=== PATIENT | male | born 1940 | race Caucasian/White ===

== ENCOUNTER 2017-05-26 07:25 | Day surgery (SDC) | payer MEDICARE, OTHER ==
[2017-05-25 13:55] VITALS: BMI 27.8
[2017-05-26 08:22] LABS: #Eosinphils 0.3 thou/uL (0.0-0.7); #Lymphocytes 0.5 thou/uL (1.20-3.40); #Monocytes 0.6 thou/uL (0.11-0.59); #Neutrophils 5.1 thou/uL (1.40-6.50); %Basophils 0.7 % (0.0-1.0); %Eosinophils 4.2 % (0.0-10.0); %Lymphocytes 7.6 % (21.0-51.0); %Monocytes 9.9 % (0.0-10.0); %Neutrophils 77.7 % (42.0-75.0); Hemoglobin 12.3 g/dL (14.0-18.0); Mean Corpuscular HGB CONC 31.5 g/dL (32.0-36.0); Mean Corpuscular Hemoglobin 30.9 pg (27.0-31.0); Mean Corpuscular Volume 98.1 fl (80.0-94.0); Mean Platelet Volume 7.5 fL (7.4-10.4); Platelet Count 222 thou/uL (130-400); RBC Distribution Width 14.9 % (11.5-14.5); Red Blood Cell (RBC) Count 3.97 mill/uL (4.70-6.10); White Blood Cell (WBC) Count 6.5 thou/uL (4.8-10.8)
[2017-05-26 08:30] LABS: PTT 33.8 SEC (22.9-36.1); Prothrombin Time 13.2 SEC (12.0-14.7)
[2017-05-26 08:40] LABS: Anion Gap 11 mmol/L (10-20); BUN (Urea Nitrogen) 33 mg/dL (8.4-25.7); Calc. Creatinine Clearance 48 mL/min (70-130); Calcium 9.5 mg/dL (7.8-10.44); Carbon Dioxide 24 mmol/L (23-31); Chloride 104 mmol/L (98-107); Estimated GFR-MDRD 39; Glucose 145 mg/dL (83-110); Potassium 4.4 mmol/L (3.5-5.1); Sodium 135 mmol/L (136-145)
--- NOTE | 2017-05-26 09:06 | RAD ---
SUPINE ABDOMEN: History: Renal stone. FINDINGS/IMPRESSION: There are numerous calcifications overlying both renal outlines consistent with multiple bilateral re nal calculi. Ureteral calculi could easily be obscured on this study. Numerous calcifications in the peripheral pelvis are seen, which are vascular, although ureteral calculi could be present. Post-oper ative changes in the pelvis with numerous clips. Bowel gas pattern unremarkable. POS: [facility]
== END 2017-05-26 09:30 | disposition home or self-care (01) ==
LOC: SDC 07:25
PROVIDERS: ATTEND Urology
DX: N20.0 Calculus of kidney (principal); Z53.8 Procedure and treatment not carried out for other reasons
CPT/HCPCS: 36415; 74018; 80048; 85025; 85576; 85610; 85730

== ENCOUNTER 2017-06-02 06:18 | Day surgery (SDC) | payer MEDICARE, OTHER ==
[2017-06-01 10:16] VITALS: BMI 28.7
[2017-06-02] MEDS ORDERED: Fentanyl 250 MCG/5 ML VIAL ONE (07:07)
[2017-06-02] MEDS ORDERED: Midazolam HCl 2 mg/2 ml Vial ONE (07:07)
[2017-06-02] MEDS ORDERED: cefOXitin 2 GM, Syringe 1 ML in Sterile Water 10 ML SLOW IVP SCH (07:45)
[2017-06-02 08:10] LABS: Platelet Count 247 thou/uL (130-400)
--- NOTE | 2017-06-02 08:14 | RAD ---
ABDOMEN ONE VIEW: History: 76-year-old male with history of renal calculi. Comparison: 05-26-17 FINDINGS: There are extensive bilateral calcifications associated with both kidneys. Some of these appear to be definitely vascular although there is very probable irregular renal calculus in the lower pole of th e left kidney. Extensive post-surgical changes in the pelvis. Stable marked vertical height loss of t he L4 vertebral body. No bowel obstruction or other new process. IMPRESSION: Prominent vascular calcifications. Probable left lower pole renal calculus. Extensive post changes in the pelvis. Heterogeneous demineralization of the subcapital portion of the right femoral head rajennifer tirado for concern for avascular necrosis. Little change from prior exam, 05-26-17. POS: [facility]
--- NOTE | 2017-06-02 13:26 | OP ---
DATE OF PROCEDURE: 06/02/2017 PREOPERATIVE DIAGNOSES: Recurrent urinary tract infections and left renal calcification. POSTOPERATIVE DIAGNOSES: Recurrent urinary tract infections and left renal calcification. PROCEDURE PERFORMED: Left ESWL. SURGEON: Dr. Bam Logan. ANESTHETIC: General. ESTIMATED BLOOD LOSS: Not recorded. FINDINGS: There is either stone or group of stones in the left lower pole calyceal system about 6 mm in size that was treated with 2500 shocks, maximum level of 5. No stent was placed, appeared to fra gment well. He has some vascular calcifications. The main renal artery and some in the inferior lob ule arteries, none of them down in this area, however. OPERATIVE TECHNIQUE: After obtaining written and verbal consent from the patient after receiving IV antibiotics after making sure we could see the stones easily and differentiate and then from vascular calcifications and also after being sure his platelet function assay was normal. He was taken to [facility] operating suite. He was placed in the supine position on the treatment table. PlexiPulses were pl aced on his lower extremities and turned on. He was given a general anesthetic, oral intubation coup led into the lithotripsy unit. The stones were easy to see. They were placed in treatment focal poi nt. Shockwave therapy was commenced at a low kV. After couple 100 shocks, a pause was given and the n we increased slowly the kV to 5, we kept at a rate of 60. The stones did appear to fragment, breaking up getting larger in size an d less dense at the end of 2500 shocks, the procedure was terminated. He was awakened, extubated, an d taken by stretcher to the recovery room.
[2017-06-02] MEDS ORDERED: Lidocaine 1% PF 5 ML VIAL ONE (13:59)
[2017-06-02] MEDS ORDERED: Propofol 200 MG/20 ML VIAL ONE (13:59)
[2017-06-02] MEDS ORDERED: Succinylcholine Chloride 20 MG/ML 10 ml SYRINGE FS ONE (13:59)
[2017-06-02] MEDS ORDERED: Ondansetron HCl/PF 4 MG/2 ML Vial ONE (13:59)
[2017-06-02] MEDS ORDERED: ePHEDrine/0.9% NaCl/PF SYRINGE 50 mg/10 ml ONE (13:59)
== END 2017-06-02 12:15 | disposition home or self-care (01) ==
LOC: SDC 06:18
PROVIDERS: ATTEND Urology
PROC: 0TF4XZZ Fragmentation in Left Kidney Pelvis, External Approach (ICD-10-PCS; principal; 2017-06-02)
DX: N39.0 Urinary tract infection, site not specified (principal); N20.0 Calculus of kidney; E78.5 Hyperlipidemia, unspecified; I10 Essential (primary) hypertension; E11.9 Type 2 diabetes mellitus without complications; K21.9 Gastro-esophageal reflux disease without esophagitis; J45.909 Unspecified asthma, uncomplicated; R32 Unspecified urinary incontinence; Z79.02 Long term (current) use of antithrombotics/antiplatelets; Z79.1 Long term (current) use of non-steroidal anti-inflammatories (NSAID); Z79.84 Long term (current) use of oral hypoglycemic drugs; Z79.899 Other long term (current) drug therapy; Z88.6 Allergy status to analgesic agent; Z88.8 Allergy status to other drugs, medicaments and biological substances; Z90.79 Acquired absence of other genital organ(s); Z85.46 Personal history of malignant neoplasm of prostate; Z87.891 Personal history of nicotine dependence
CPT/HCPCS: 36416; 74018; 85576; A4216; J0694; J2001; J2250; J2405; J2704; J3010

== ENCOUNTER 2017-07-13 19:42 | Inpatient (IN) | payer MEDICARE, OTHER ==
[~2017-07-13 19:42] MED LIST: Lidocaine 1% PF 5 ML VIAL ONE; PROPOFOL 200 MG/20 ML VIAL ONE
[2017-07-13] MEDS ORDERED: Acetaminophen 500 MG TAB ONE (20:20)
[2017-07-13] MEDS ORDERED: Piperacillin/Tazobactam 4.5 GM VIAL ONE (20:32)
[2017-07-13 20:40] LABS: #Eosinphils 0.1 thou/uL (0.0-0.7); #Lymphocytes 0.5 thou/uL (1.20-3.40); #Monocytes 1.3 thou/uL (0.11-0.59); %Eosinophils 0.5 % (0.0-10.0); %Lymphocytes 3.5 % (21.0-51.0); %Monocytes 8.6 % (0.0-10.0); %Neutrophils 87.4 % (42.0-75.0); Hemoglobin 12.9 g/dL (14.0-18.0); Mean Corpuscular HGB CONC 33.7 g/dL (32.0-36.0); Mean Corpuscular Hemoglobin 31.6 pg (27.0-31.0); Mean Corpuscular Volume 93.9 fl (80.0-94.0); Mean Platelet Volume 7.2 fL (7.4-10.4); Platelet Count 230 thou/uL (130-400); RBC Distribution Width 14.3 % (11.5-14.5); Red Blood Cell (RBC) Count 4.09 mill/uL (4.70-6.10); White Blood Cell (WBC) Count 14.9 thou/uL (4.8-10.8)
[2017-07-13 20:57] LABS: Bilirubin Negative (Negative); Blood, Urine Large (Negative); Clarity CLOUDY (Clear); Glucose, Urine (Dipstick) Negative (Negative); Leukocyte Large (Negative); Nitrite Positive (Negative); Protein, Urine (Dipstick) Trace mg/dL (Neg-Trace); Specific Gravity, Urine 1.015 (1.002-1.036); Urobilinogen 0.2 mg/dL (0.2-1.0); pH, Urine 5.5 (5.0-9.0)
[2017-07-13 20:58] LABS: Bacteria/HPF 4+ HPF (None Seen); Hyaline Casts/LPF 0-3 HYALINE CAST LPF (0-3 Hyaline); RBC/HPF GREATER THAN 50-TNTC HPF (0-3); Squamous Epithelial None Seen HPF (0-3)
[2017-07-13 21:04] LABS: ALT (SGPT) 11 U/L (8-55); AST (SGOT) 14 U/L (5-34); Alkaline Phosphatase 79 U/L (40-150); Anion Gap 14 mmol/L (10-20); BUN (Urea Nitrogen) 31 mg/dL (8.4-25.7); Bilirubin, Total 0.4 mg/dL (0.2-1.2); Calc. Creatinine Clearance 0 mL/min (70-130); Calcium 9.3 mg/dL (7.8-10.44); Carbon Dioxide 20 mmol/L (23-31); Chloride 103 mmol/L (98-107); Estimated GFR-MDRD 44; Globulin 2.6 g/dL (2.4-3.5); Glucose 159 mg/dL (83-110); Potassium 4.6 mmol/L (3.5-5.1); Protein, Total 6.6 g/dL (5.8-8.1); Sodium 132 mmol/L (136-145)
--- NOTE | 2017-07-13 21:18 | RAD ---
ONE VIEW CHEST: 07/13/17 COMPARISON: 03/07/15. HISTORY: Cough. FINDINGS: Atherosclerosis of the aorta. Normal cardiac silhouette. Patchy interstitial opacities lung bases sug gesting infiltrate. No pneumothorax. Old left rib fracture. IMPRESSION: 1. Bibasilar interstitial opacities suggesting infiltrate. 2. Atherosclerosis. POS: [facility]
[2017-07-13] MEDS ORDERED: Vancomycin HCl 1.5 GM in Sodium Chloride 0.9% 250 ML 300 ML IVPB SCH (22:30)
--- NOTE | 2017-07-13 22:33 | CT ---
ABDOMEN CT WITHOUT CONTRAST PELVIC CT WITHOUT CONTRAST 07/13/17 COMPARISON: 07/20/14. HISTORY: Abdominal pain. Right lower quadrant. Previous lithotripsy two weeks ago. TECHNIQUE: Abdomen and pelvic CT performed without IV or oral contrast essentially utilizing renal stone protoco l. Coronal reformatted images are submitted for interpretation. FINDINGS: ABDOMEN CT: Chronic changes in the lung bases. Normal heart size. There are coronary calcifications. Atherosclero sis of a nonaneurysmal aorta is noted. Symmetric attenuation of the psoas muscles. No gastrohepatic, retrocrural or periportal lymphadenopat hy. Gallbladder is unremarkable. Limited evaluation of the solid organs by lack of IV contrast. No definite solid organ abnormality. No gastrohepatic, retrocrural or periportal lymphadenopathy. There is fluid in the right pericolic and left pericolic gutters. No mesenteric mass, free air, or ly mphadenopathy. There are calcifications in the left and right renal pelvis likely vascular in nature. Nonobstructing calcifications in the lower pole left kidney are noted. There is mild dilatation of the right intra and extrarenal collecting system. There is a solitary calcification in the distal right ureter measur ing approximately 5 mm in craniocaudal dimension. With regard to the left intra and extrarenal collec ting system, no evidence of obstructive uropathy. Umbilical hernia containing mesenteric fat is noted. Limited evaluation of the alimentary canal due t o lack of oral contrast. No evidence of bowel obstruction. Normal caliber appendix is noted. PELVIC CT: Limited evaluation due to beam attenuation artifact from brachytherapy seeds. Urinary bladder is limi ignacia in evaluation due to inadequate distention. No definite pelvic mass, lymphadenopathy. Vertebral plana at L4. IMPRESSION: Mild right sided obstructive uropathy secondary to a solitary calculus in the distal right ureter sandra suring approximately 5 mm. POS: [facility]
[2017-07-13] MEDS ORDERED: Iothalamate Meglumine 60% 50 ML VIAL FS ONE (22:49)
[2017-07-13] MEDS ORDERED: Fentanyl 100 MCG/2 ML VIAL ONE (22:54)
[2017-07-14] MEDS ORDERED: Bisacodyl 10 MG SUPP PR PRN (00:05)
[2017-07-14] MEDS ORDERED: Ondansetron HCl/PF 4 MG/2 ML Vial IVP PRN (00:05)
[2017-07-14] MEDS ORDERED: Insulin Regular 300 UNITS/3 ML VIAL SC PRN ×2 (00:05→07:50)
[2017-07-14] MEDS ORDERED: Morphine 4 MG/ML VIAL SLOW IVP PRN ×2 (00:05)
[2017-07-14] MEDS ORDERED: HYDROcodone/Acetaminophen 5/325 mg Tablet PO PRN ×2 (00:05)
[2017-07-14] MEDS ORDERED: hydrALAZINE 20 MG/ML VIAL SLOW IVP PRN ×2 (00:05)
[2017-07-14] MEDS ORDERED: diphenhydrAMINE 50 MG/ML VIAL IVP PRN (00:05)
[2017-07-14] MEDS ORDERED: Oxybutynin 5 MG TAB PO PRN (00:05)
[2017-07-14] MEDS ORDERED: Dextrose 5% in Water 1,000 ML IV PRN ×2 (00:05→07:50)
[2017-07-14] MEDS ORDERED: Dextrose 50% Abboject 50 ML SYRINGE SLOW IVP PRN ×2 (00:05→07:50)
[2017-07-14] MEDS ORDERED: Labetalol HCl 100 MG/20 ML VIAL ONE (00:31)
--- NOTE | 2017-07-14 01:01 | OP ---
DATE OF SERVICE: 07/14/2017 PREOPERATIVE DIAGNOSES: 1. A 76-year-old male with history of right 5 mm distal ureteral calculi with hydronephrosis. 2. Fever of 102, leukocytosis. 3. Status post left extracorporeal shock wave lithotripsy, 05/2017. 4. History of prostate cancer, status post radical prostatectomy, adjuvant radiation therapy. 5. History of bulbar urethral stricture. 6. History of multidrug resistant urinary tract infection. POSTOPERATIVE DIAGNOSES: 1. A 76-year-old male with history of right 5 mm distal ureteral calculi with hydronephrosis. 2. Fever of 102, leukocytosis. 3. Status post left extracorporeal shock wave lithotripsy in 05/2017. 4. History of prostate cancer, status post radical prostatectomy, adjuvant radiation therapy. 5. History of bulbar urethral stricture. 6. History of multidrug resistant urinary tract infection. PROCEDURE: Cystoscopy, right 6 x 24 stent, dilation of bulbar urethral stricture, a 16-Cymraes Councill-tip Barnett catheter placement over guidewire. SURGEON: Tahira Uribe D.O. ANESTHESIA: LMA general. COMPLICATIONS: None apparent. DISPOSITION: To recovery room in stable condition. INDICATIONS FOR THE PROCEDURE AND HISTORY: Mr. Andrade is a 76-year-old male who presents with his , CT in the emergency room demonstrated 5 mm distal ureteral calculi with hydronephrosis. As he presented with high fever and leukocytosis, advised regarding emergent ureteral stent placement. Chart review demonstrating urine culture positive for E. coli, 05/2017, history of multidrug resistant UTI, requiring PICC line in the past. The patient and were advised regarding indications for emergent need for stent to prevent further decompensation and he desired to proceed. Risks and complications and indications reviewed including, but not limited to bleeding, pain, infection, sepsis, perioperative morbidity and mortality, injury to adjacent structures. All questions encouraged and answered and he desired to proceed. DESCRIPTION OF THE PROCEDURE: After an informed consent was signed, the patient was taken to the operating room, placed in a dorsal lithotomy position. He has been provided vancomycin, Zosyn, Rocephin by the emergency room. Prior urine culture demonstrates Zosyn sensitivity. Bilateral CARLO hose, SCDs were provided. We proceeded to perform cystoscopy. A 21-Cymraes cystoscope was passed. There was evidence of multiple bulbar stricture, wide caliber. A 0.35 Super Stiff wire was able to be passed to the level of the bladder and I was able to negotiate the scope with guidewire assist to the level of the bladder. The bladder neck was wide open with no evidence of bladder neck contracture. The bladder was entered, which demonstrated some changes consistent with radiation cystitis. The UO's were identified. As he presents with early sepsis picture, I did not perform a retrograde pyelogram, a 0.35 sensor wire was able to pass into the right upper collecting system without difficulty. I subsequently passed a 6 x 24 stent with ease. At this time, I placed a 0.35 Super Stiff wire to the level of the bladder and a Councill-tip 18 Cymraes Barnett catheter was passed without difficulty and this was attached to gravity bag. As he has been on Plavix, he does have rodriguez red hematuria component. As such , I will hold his Plavix; will initiate meropenem, await final urine culture to finalize. Infectious Disease tomorrow morning would be prudent. The patient will be admitted to step down ICU to monitor for decompensation. JUAN
[2017-07-14] MEDS: Sodium Chloride 0.9% 1,000 ML IV SCH ×2 (02:00→13:55)
[2017-07-14 02:08] VITALS: BMI 31.9
--- NOTE | 2017-07-14 03:31 | CON ---
Urologic coverage for Dr. Bam Logan. PRIMARY CARE PHYSICIAN: Dr. Stef Farah. REASON FOR CONSULT: History of fever of 102, status post lithotripsy. HISTORY OF PRESENT ILLNESS: Mr. Andrade is a 76-year-old pleasant male who presented to the emergency room due to history of fever, malaise, generalized feeling of not feeling well. The patient is accompanied by his who is at bedside. Chart was reviewed. Obtaining pertinent history. History of recurrent UTI, multidrug resistant. He underwent left ESWL by Dr. Logan on . A stent was not put in. The CT of the abdomen and pelvis stone protocol was obtained, demonstrating bilateral calcific density; however, they are vascular in naturevs persistent renal lithiasis.. There is a nonobstructing left lower pole kidney stone. Also, there is mild dilation of the right collecting system with a stone in the distal right ureter measuring 5 mm. Left side demonstrates no evidence of hydronephrosis. He presents with white count of 14, 85 segs. He has been provided Tylenol with defervescence from 102 to 99.9. His blood pressure and heart rate are stable. The patient has been incontinent, voided clear yellow urine, states that his flow has been adequate, however, over the day or two, it has been somewhat poor. PAST MEDICAL HISTORY: Hyperlipidemia, diabetes, history of kidney stones, prostate cancer treated with radical prostatectomy, brachytherapy, hypertension , asthma. PAST SURGICAL HISTORY: Sinuplasty, radical prostatectomy by Dr. Barone followed by brachytherapy, angioplasty of bilateral lower extremities, bilateral carotid endarterectomy by Dr. Merritt. On 07/20/2014, cystoscopy, urethral dilation by retrograde stent and then 07/30/2014, cystoscopy, right ureteroscopy, laser lithotripsy. PSYCHIATRIC: Negative. SOCIAL HISTORY: Lives with his . History of tobacco abuse, quit 10 years ago. FAMILY HISTORY: Noncontributory. PHYSICAL EXAMINATION: VITAL SIGNS: T-max of 102, presented with blood pressure of 201/87. Currently , blood pressure is 160/58, 88, 20, 99.2 temperature, 96% on room air. GENERAL: The patient is alert and oriented. at bedside. Answers questions appropriately. HEENT: Grossly Unremarkable. HEART: Regular rate. LUNGS: Decreased inspiratory effort. ABDOMEN: Soft. No rigidity, no rebound. There is a midline infraumbilical incision consistent with open prostatectomy. GENITOURINARY: Uncircumcised testes. He is grossly incontinent of urine clear. Testes are descended. EXTREMITIES: No cyanosis, clubbing, or edema. PERTINENT LABORATORY AND IMAGING: White count 14, hemoglobin 12, platelet 232, 000, 85 segs. Creatinine is 1.5, sodium 132. Baseline creatinine variable from 0.9-1.7. PSA of record is less than 0.02 on 09/2016. Urinalysis demonstrates grossly infected urine, positive nitrites, positive leukocytes, 4+ bacteria. His prior urine culture dated 05/20/2017, preop demonstrates E. coli, multidrug resistant. It is sensitive to CEFOXITIN, MEROPENEM, ZOSYN, BACTRIM. CT results as above. Chest x-ray on 07/13/2017, bilateral interstitial opacities suggesting infiltrate, atherosclerosis. IMPRESSION AND PLAN: Mr. Andrade is a 76-year-old male with history of recurrent kidney stone, status post left extracorporeal shock wave lithotripsy on 06/02/2017, presents with mild right hydronephrosis due to right distal ureteral stone with urinary tract infection component. The patient advised regarding cystoscopy, right stent and admit for broad spectrum antibiotics, will need to be closely monitored medically for urosepsis and decompensation. I did speak with his primary care service, Dr. Oviedo who was covering for Dr. Farah. A consultation has been obtained with the medical service. He has been provided Zosyn, Rocephin, and vancomycin in the ER, based on his previous urine culture, I will provide meropenem postop. Infectious Disease consult at a later time would be prudent given his clinical history. The patient with history of bulbar stricture, status post radical prostatectomy with radiation, also consented for urethral dilatation if needed. [facility]
[2017-07-14 04:48] LABS: Anion Gap 13 mmol/L (10-20); BUN (Urea Nitrogen) 30 mg/dL (8.4-25.7); Calc. Creatinine Clearance 57 mL/min (70-130); Calcium 7.9 mg/dL (7.8-10.44); Carbon Dioxide 17 mmol/L (23-31); Chloride 108 mmol/L (98-107); Estimated GFR-MDRD 43; Glucose 153 mg/dL (83-110); Sodium 134 mmol/L (136-145)
[2017-07-14 05:41] LABS: Band 14 % (5-11); Hemoglobin 11.1 g/dL (14.0-18.0); Lymphocytes 3 % (21-51); MDiff Complete? YES; Macrocytosis SLIGHT = 6-15 cells (100X) (0-5/hpf); Mean Corpuscular HGB CONC 32.8 g/dL (32.0-36.0); Mean Corpuscular Hemoglobin 31.1 pg (27.0-31.0); Mean Corpuscular Volume 94.7 fl (80.0-94.0); Mean Platelet Volume 7.9 fL (7.4-10.4); Metamyelocyte 4 % (0-0); Monocytes 9 % (0-10); Neutrophil 70 % (42-75); PLT Morphology Comment Appears Adequate; Platelet Count 194 thou/uL (130-400); RBC Distribution Width 14.4 % (11.5-14.5); Red Blood Cell (RBC) Count 3.57 mill/uL (4.70-6.10); White Blood Cell (WBC) Count 19.7 thou/uL (4.8-10.8)
[2017-07-14] MEDS: Meropenem 2 GM in Sodium Chloride 0.9% 100 ML IVPB SCH ×2 (06:06→14:00)
--- NOTE | 2017-07-14 06:53 | RAD ---
RETROGRADE IVP: Date: 07/13/17 HISTORY: Stent placement. FINDINGS: Intraoperative fluoroscopy was provided for Dr. Uribe. Three fluoroscopic images are submitted for interpretation. There is evidence of a wire traversing the right ureter. Last image demonstrates a double pigtail stent in the right ureter. Tent position appears to be appropriate. IMPRESSION: Fluoroscopy as above. POS: [facility]
[2017-07-14] MEDS: Mometasone/Formoterol 120 PUFF INHALER INH SCH ×2 (08:06→18:53)
[2017-07-14] MEDS: Calcium Carbonate 500 MG TAB PO SCH ×2 (10:00→20:52)
[2017-07-14] MEDS: Citrucel 500 MG TAB PO SCH ×2 (10:00→20:53)
[2017-07-14] MEDS: Atorvastatin Calcium 10 MG TAB PO SCH (10:00)
[2017-07-14] MEDS: Docusate 100 MG CAP PO SCH ×2 (10:01→20:53)
[2017-07-14] MEDS: Amlodipine 5 MG TAB PO SCH (10:01)
[2017-07-14] MEDS: Famotidine 40 MG/4 ML VIAL SLOW IVP SCH (10:02)
--- NOTE | 2017-07-14 13:20 | CON ---
DATE OF CONSULTATION: 07/14/2017 Mr. Andrade is a 76-year-old male with history of kidney stones. He presented with fever and some mild abdominal discomfort. He recently had a lithotripsy in May, but no stent. He had a left lower pole nonobstructing kidney stone. There is also mild dilation of the right collecting system with a stone in the distal right ureter. He underwent cystoscopy, a right 16 x 24 stent placement, dilation of the bulbar urethral stricture and placement of a Barnett. PAST MEDICAL HISTORY: 1. Remarkable for diabetes. 2. Hypertension. 3. Lipid disorder. 4. History of prostate cancer. 5. Peripheral vascular disease. 6. History of asthma. 7. History of sinus surgery. 8. History of prostatectomy. 9. History of lower extremity vascular stenting. 10. History of aortobifemoral bypass surgery. 11. Status post right carotid endarterectomy last fall after a TIA involving his right hemisphere. 12. History of a left carotid endarterectomy in November last year. 13. History of recurrent urinary tract infections and lithotripsy in May of this year, 06/02/2017. FAMILY HISTORY: Negative for lung disease at an early age. SOCIAL HISTORY: He is nonsmoker, nondrinker, does not use drugs. REVIEW OF SYSTEMS: Ten points otherwise negative. He says he has no pain or discomfort at this time. PHYSICAL EXAMINATION: VITAL SIGNS: Afebrile, heart rate 80, respiratory 20, oximetry is 94 on 2 liters, blood pressure 120/59. HEENT: Pupils are equal. Sclerae is anicteric. He appears older a little older than his stated age. NECK: Supple, no lymphadenopathy. LUNGS: Clear. HEART: Regular rhythm. S1 and S2 are normal. ABDOMEN: Soft and nontender. EXTREMITIES: No clubbing, cyanosis, or edema. NEUROLOGIC: Grossly nonfocal. LABORATORY DATA: White count 19.7, hemoglobin 11.1, platelets 194. Sodium 134 , potassium 4, chloride 108, bicarbonate 17, BUN 30, creatinine 1.59, glucose 153. Blood cultures are negative. Urine culture from 05/20/2017 shows an E. coli that is sensitive only to amikacin and Mefoxin, meropenem, nitrofurantoin, Zosyn and Bactrim. IMPRESSION: Status post stenting and placement of a Barnett for an obstructive uropathy/nephrolithiasis with ureteral stone on the right. He appears clinically stable. His vital signs have been stable. He has no complaints. In theory, he could move out of the Intermediate Care Unit to a surgical floor. This is a 50 minute consult, greater than 50% of the time was spent coordinating care. ADDENDUM: His other medical problems include diabetes, hypertension, chronic kidney disease which appears to be stable and a reported history of asthma. He does not have clinical active asthma at this time. He has been seen by Dr. Delong in the past. Dr. Delong will be notified of his admission in the morning. JUAN
--- NOTE | 2017-07-14 14:52 | CON ---
DATE OF CONSULTATION: 07/14/2017 HISTORY OF PRESENT ILLNESS: Patient is a 76-year-old male who presented to the emergency room with f lank pain. He underwent cystoscopy-guided placement of a stent, which was replaced for ureteral ston e. He was found to have urosepsis. He was placed on broad-spectrum antibiotics. He is now admitted for postoperative care as well as an antibiotic treatment. He reports that he is feeling a little bit better this morning. He notes no other medical complaints . No fever, chest pain, nausea, vomiting, diarrhea. He has a history of cerebral vascular disease t hroughout and post carotid endarterectomy. He does have a history of atherosclerotic coronary artery disease, type 2 diabetes mellitus, hypertension, hypercholesterolemia, prostate cancer, peripheral v ascular disease, as well as asthma. PAST SURGICAL HISTORY: Sinus surgery, prostatectomy, multiple stents to his lower extremities, carot id endarterectomy. ALLERGIES: He is allergic to IBUPROFEN and ASPIRIN. PHYSICAL EXAMINATION: GENERAL: Currently, at this time, he is alert and oriented. VITAL SIGNS: His temperature is 100.9, now down to 98.7, blood pressure 131/56. LUNGS: Clear. HEART: Reveals a regular rate and rhythm without murmurs, gallops or rubs. NECK: Supple, full range of motion, no masses. ABDOMEN: Soft, nontender, bowel sounds are present and active. There is no hepatosplenomegaly is no ignacia. EXTREMITIES: No clubbing, edema or cyanosis. LABORATORY DATA: His white blood count this morning is 19.7, hemoglobin 11.1, hematocrit 33.8. Sodi um 134, potassium 4.0, chloride 108, CO2 17, BUN 30, creatinine 1.59, blood sugar 153. IMPRESSION: 1. Status post ureteral stent for renal stone. 2. Urinary tract infection with possible probable sepsis. PLAN: The patient has been admitted. He is in the care unit. He is currently maintained on IV anti biotics of ceftriaxone, Zosyn as well as vancomycin. We will institute a hyperglycemia protocol. We will continue to follow along with you. I will recommend continuing current antibiotics.
[2017-07-14] MEDS: MEROPENEM 1 GM/50 ML 1 GM in Premix Bag 1 BAG IVPB SCH (21:56)
[2017-07-14] MEDS ORDERED: Meropenem 1 GM in Sodium Chloride 0.9% 100 ML IVPB SCH (22:00)
--- NOTE | 2017-07-14 22:24 | CON ---
DATE OF CONSULTATION: 07/14/2017 REASON FOR CONSULTATION: Urosepsis. HISTORY OF PRESENT ILLNESS: A 76-year-old known to me from previous visit in 2014, when he presented with history of type 2 diabetes, asthma, hypertension, prostate cancer in remission after prostatect steffen, and recurrent nephrolithiasis. Patient has developed a bulbar urethral stricture in the past fo llowing radiation therapy for prostate cancer. In 2014, he had an ESBL E. coli had a UVJ stone with moderate hydroureteronephrosis and he underwent stent placement subsequently had lithotripsy. Most o f the other procedures in the intervening years are related to vascular disorder with bilateral endar terectomies. In May, Dr. Logan carried out a left lithotripsy, then he developed new-onset fever, general malaise, altered mental status, abdominal pain in the right side radiating to the right groi n area. Had some cough, no sputum production, no headaches, no visual symptoms, sore throat, odynoph agia, dysphagia. I would say no visual symptom change since patient has recurrent treatments for mac ular degeneration. Initial findings in the ER included BP 200/87, pulse 93, respirations 20, and tem perature 102.0. Patient was given IV fluids, broad-spectrum antimicrobial coverage and had a CT ston e protocol, which showed right-sided obstructive uropathy with solitary calculus in distal right uret er. Dr. Uribe inserted a ureteral stent on the right side, little bit drowsy, but oriented, fo llows commands, fairly decent recollection. No headaches, visual symptoms, sore throat, odynophagia, dysphagia. No cough or sputum production or chest pain. No abdominal pain, diarrhea, and genitouri nary symptoms. Previously noted flank pain and right groin pain has resolved. No neurological sympt oms. PAST MEDICAL HISTORY: Type 2 diabetes, asthma, COPD, hypertension, hyperlipidemia, prostate cancer, prostatectomy, nephrolithiasis bulbar urethral stricture, sinusitis, peripheral vascular disease with angiograms, no angioplasty. SOCIAL HISTORY: Former smoker. FAMILY HISTORY: Noncontributory. CURRENT MEDICATIONS: Meropenem 2 grams q.8, acetaminophen, Gary, Norvasc, Lipitor, Dulcolax, Lescol , dextrose, Benadryl, Colace, Pepcid, insulin, Normodyne p.r.n., mometasone, formoterol inhaler, morp shaylee, and ondansetron. ALLERGY HISTORY: ASPIRIN and IBUPROFEN. PHYSICAL EXAMINATION: VITAL SIGNS: T-max 100.9, currently 98.9, blood pressure 120s/60, pulse 80, respirations 19-20, O2 s at 95% on 2 liters nasal cannula. SKIN: We have a Barnett catheter in place. Output 300 mL, past few hours. Peripheral IV access. He is awake, a little bit drowsy, but oriented, no lymphadenopathy. HEENT: Ocular movements shows conjugate movements. The left conjunctivae sclerae with subconjunctiv al hemorrhage quite extensive probably related to the intravitreal indirect injections for management of macular degeneration. LUNGS: Symmetric clear breath sounds. No jugular vein distention. HEART: S1, S2, regular rate. No S3, S4. ABDOMEN: Soft, not distended or tender. He has mild tenderness in the right groin. Genital evaluat ion was not remarkable except for Barnett catheter. EXTREMITIES: Popliteals are 1+. Dorsalis pedis are faintly palpable. Cap refill less than 3 second s. No edema. He is able to move extremities on command. The strength appears to be intact in all 4 extremities. NEUROLOGIC: The cognitive status is okay except for some drowsiness. LABORATORY DATA: White cell count is at 19.7, hemoglobin 11, platelets 194, 14% bands. Sodium 134, creatinine 1.59. Liver profile are normal. Albumin 4.0. Urinalysis with greater than 50 wbc's. Mi crobiology with Gram-negative tesha isolated in the urine culture yet to be identified. Two sets of bl ood cultures thus far negative. All the previous cultures from prior visits showed an E. coli, which has an ESBL phenotype. ASSESSMENT: 1. Vascular disease with prior endarterectomies. 2. Recurrent nephrolithiasis requiring interventions and IV antimicrobial therapy. 3. 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 4. Prostate cancer in remission after treatment, resection. 5. Sepsis with another stone in the right side and hydronephrosis, status post stent placement. DISCUSSION: Patient will be continued on meropenem, adjust dosage downwards to 1 gram q.8, MICs for the E. coli is pretty good, 0.25 mcg per mL and we would have plenty of space in the meropenem before the next dosing interval with 1 gram q.8, adjusted for his renal function. The patient will need to continue on it for quite a while. I would advise at least 4 weeks with a PICC line insertion. He m ay have to be extended even beyond that depending on the scheduling for the lithotripsy or the remova l of the stone. Discussed potential adverse reactions from PICC placement and the medication, and esther shoemaker understood and family members agreed with management recommendation.
[2017-07-15] MEDS: Sodium Chloride 0.9% 1,000 ML IV SCH ×3 (00:07→15:33)
[2017-07-15] MEDS: MEROPENEM 1 GM/50 ML 1 GM in Premix Bag 1 BAG IVPB SCH ×3 (05:07→20:51)
[2017-07-15] MEDS: Mometasone/Formoterol 120 PUFF INHALER INH SCH ×2 (06:15→19:15)
[2017-07-15] MEDS: Amlodipine 5 MG TAB PO SCH (08:23)
[2017-07-15] MEDS: Docusate 100 MG CAP PO SCH ×2 (08:23→20:51)
[2017-07-15] MEDS: Atorvastatin Calcium 10 MG TAB PO SCH (08:23)
[2017-07-15] MEDS: Calcium Carbonate 500 MG TAB PO SCH ×2 (08:23→22:26)
[2017-07-15] MEDS: Citrucel 500 MG TAB PO SCH ×2 (08:35→20:51)
--- NOTE | 2017-07-15 09:29 | PRG ---
DATE OF SERVICE: 07/15/2017 This morning the patient is awake, alert and responsive. Denies any pain. He had a renal stone whic h was addressed by Dr. Uribe. He underwent a procedure, stent and a Barnett placement. This morning he is better. Otherwise, he denies any difficulty breathing, coughing or wheezing. PHYSICAL EXAMINATION: VITAL SIGNS: On examination, sats are 95 on 3 liters, respiration is 28, pulse 80, temperature 98, b lood pressure 160/61. CHEST: No wheezing, no crackles. CARDIAC: Normal S1-S2. No gallops. ABDOMEN: Soft. No masses. IMPRESSION: 1. Renal stone, status post stent. 2. History of asthma. 3. Urosepsis. PLAN: Antibiotic per Infectious Disease. Pulmonary will follow while in the IMCU. Continue Dulera.
[2017-07-15] MEDS: Famotidine 40 MG/4 ML VIAL SLOW IVP SCH (12:09)
--- NOTE | 2017-07-15 14:08 | PRG ---
DATE OF SERVICE: 07/15/2017 SUBJECTIVE: Mr. Andrade is doing well. He is awake and alert. OBJECTIVE: VITAL SIGNS: He has been afebrile. BP 148/79. LUNGS: Clear. HEART: Reveals no murmur. LABORATORY DATA: His blood sugars are well controlled. Urine culture does reveal E. coli with multi ple resistance patterns. Infectious Disease has been consulted. IMPRESSION: 1. Ureteral calculus. 2. Infected urinary stone. 3. Type 2 diabetes mellitus, well-controlled. PLAN: Continue current treatment regimen.
--- NOTE | 2017-07-15 16:59 | PRG ---
DATE OF SERVICE: 07/15/2017 SUBJECTIVE: Mr. Andrdae is having some cough, some wheezing, a little bit of dyspnea. No headaches. No abdominal pain. Still with indwelling Barnett catheter. PHYSICAL EXAMINATION: VITAL SIGNS: T-max of 99.2, blood pressure 219/91. HEENT: His ocular movements are conjugate. A little bit of periorbital edema. LUNGS: There is bilateral expiratory wheezing distributed through right and left hemithorax. HEART: S1, S2, regular rate. ABDOMEN: Not distended. EXTREMITIES: No joint inflammatory process noted. LABORATORY DATA: The white cell count is last time checked yesterday 19.7, hemoglobin 11, platelets 194, 14% bands. Creatinine 1.59. Microbiology with E. coli which has an ESBL phenotype compared to the previous organisms. This seems to be the same organism he has had since 07/2014. ASSESSMENT AND DISCUSSION: Vascular disease with prior endarterectomies, recurrent nephrolithiasis, requiring interventions and IV with antimicrobial therapy. 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 We will again insert a PICC line and treat him for at least 4 weeks, maybe longer, and we will continue after the upcoming lithotripsy.
[2017-07-15] MEDS ORDERED: Promethazine HCl 25 MG/ML VIAL IM/IV PRN (17:14)
[2017-07-15] MEDS ORDERED: Ondansetron ODT 8 MG TAB SL PRN (17:14)
[2017-07-15] MEDS: Labetalol HCl 100 MG/20 ML VIAL SLOW IVP PRN ×2 (17:54→18:30)
--- NOTE | 2017-07-15 18:09 | RAD ---
CHEST ONE VIEW: 07/15/17 HISTORY: Wheezing and dyspnea. COMPARISON: 07/13/17. FINDINGS: Portable upright chest demonstrates atherosclerosis of the aorta. Normal cardiac silhouette. Pulmonar y vessels are slightly prominent. There are diffuse interstitial opacities due to edema or infiltrate . Small bilateral pleural effusions. Mild hyperinflation. No pneumothorax or osseous abnormalities. IMPRESSION: Pulmonary edema and infiltrate. Continued surveillance. POS: [facility]
[2017-07-15] MEDS ORDERED: Furosemide 40 MG/4 ML VIAL SLOW IVP SCH (18:30)
[2017-07-15] MEDS: metFORMIN 500 MG TAB PO SCH (20:51)
[2017-07-15] MEDS: Pioglitazone HCl 15 MG TAB PO SCH (20:52)
[2017-07-15] MEDS ORDERED: Non-Formulary Item 1 EACH (Pioglitazone Hcl/Metformin Hcl [Actoplus Met] 1 TABLET) PO SCH (21:00)
[2017-07-16] MEDS: MEROPENEM 1 GM/50 ML 1 GM in Premix Bag 1 BAG IVPB SCH ×2 (05:57→14:39)
[2017-07-16] MEDS: Mometasone/Formoterol 120 PUFF INHALER INH SCH (06:29)
[2017-07-16] MEDS ORDERED: Liraglutide [Victoza 3-Pak] 1.2 MG SC SCH (07:30)
[2017-07-16] MEDS ORDERED: Non-Formulary Item 1 EACH (Liraglutide [Victoza 3-Pak] 1.2 MG) SC SCH (07:30)
--- NOTE | 2017-07-16 07:40 | PRG ---
DATE OF SERVICE: 07/16/2017 Mr. Andrade is doing well. He reports no complaints. PHYSICAL EXAMINATION: VITAL SIGNS: Temperature 98.2, BP 175/68. LUNGS: Clear. HEART: Reveals no murmur. LABORATORY: His blood glucoses are in adequate control. IMPRESSION: 1. Urinary calculus with a urinary tract infection. 2. Type 2 diabetes mellitus. PLAN: 1. Continue current treatment regimens. 2. From my standpoint, the patient is medically stable. If he is to be released home he is to annalisa nue his current antidiabetic regimen.
[2017-07-16] MEDS ORDERED: Amlodipine 10 MG TAB PO SCH (09:00)
--- NOTE | 2017-07-16 09:00 | RAD ---
CHEST PA AND LATERAL: Date: 07/16/17 HISTORY: 76-year-old male with history of pulmonary edema. COMPARISON: 10/09/16 and 07/15/17. FINDINGS: Increased linear and interstitial markings bilaterally with blunting to both costophrenic angles. Homero ateral pleural effusions, greater on the left side. Little change, probably slight improvement from t he most recent 07/15/17 study. IMPRESSION: Stable to slightly improved bilateral diffuse interstitial changes and bilateral pleural effusions, g reater on the left. Continue short-term follow-up for complete clearing or stability. POS: [facility]
[2017-07-16] MEDS: Pioglitazone HCl 15 MG TAB PO SCH ×2 (09:10→09:15)
[2017-07-16] MEDS: Atorvastatin Calcium 10 MG TAB PO SCH (09:10)
[2017-07-16] MEDS: Citrucel 500 MG TAB PO SCH (09:10)
[2017-07-16] MEDS: metFORMIN 500 MG TAB PO SCH ×2 (09:10→09:17)
[2017-07-16] MEDS: Docusate 100 MG CAP PO SCH ×2 (09:10→09:17)
[2017-07-16] MEDS: Calcium Carbonate 500 MG TAB PO SCH (09:10)
[2017-07-16] MEDS: Famotidine 40 MG/4 ML VIAL SLOW IVP SCH (09:11)
--- NOTE | 2017-07-16 09:17 | PRG ---
DATE OF SERVICE: 07/16/2017 SUBJECTIVE: Awake, alert and responsive. No distress. OBJECTIVE: VITAL SIGNS: Sats on 98% room air, respiration 20, temperature 98, blood pressure 175/68. CHEST: Reveals decreased breath sounds without any wheezing. CARDIAC: Normal S1, S2. No gallops. ABDOMEN: Soft. No masses. X-RAY FINDINGS: Today, shows a small left-sided pleural effusion. IMPRESSION: 1. Urosepsis. 2. Asthma, stable. 3. Small left pleural effusion, probably sepsis related. PLAN: Antibiotics per Infectious Disease. Continue Dulera. Continue PT. We will follow.
--- NOTE | 2017-07-16 10:28 | SPC ---
SONOGRAPHIC GUIDED LEF CONSUELO EXTREMITY PICC PLACEMENT: HISTORY: Urinary tract infection. FINDINGS: After explaining the procedure and answering all questions, the left upper extremity was prepped and draped in the usual sterile fashion. Sterile technique, buffered local anesthesia, sonographic enriqueta nce, and a 22 gauge needle were used to carefully access the left cephalic vein. Standard technique was then used to place the tip of a 5 Russian single lumen PICC so that the tip lies at the level of t he superior vena cava. The catheter was flushed and secured externally. The patient tolerated the p rocedure well and was returned in unchanged condition. Fluor time=1.1 minutes. IMPRESSION: Technically successful left upper extremity PICC placement. Catheter is now ready for use. POS: [facility]
[2017-07-16 13:58] LABS: #Eosinphils 0.1 thou/uL (0.0-0.7); #Lymphocytes 0.6 thou/uL (1.20-3.40); #Neutrophils 9.4 thou/uL (1.40-6.50); %Basophils 0.2 % (0.0-1.0); %Eosinophils 0.6 % (0.0-10.0); %Lymphocytes 5.1 % (21.0-51.0); %Monocytes 8.7 % (0.0-10.0); %Neutrophils 85.3 % (42.0-75.0); Hemoglobin 11.6 g/dL (14.0-18.0); Mean Corpuscular HGB CONC 32.7 g/dL (32.0-36.0); Mean Corpuscular Hemoglobin 31.4 pg (27.0-31.0); Mean Corpuscular Volume 95.8 fl (80.0-94.0); Mean Platelet Volume 8.3 fL (7.4-10.4); Platelet Count 178 thou/uL (130-400); RBC Distribution Width 14.3 % (11.5-14.5); Red Blood Cell (RBC) Count 3.71 mill/uL (4.70-6.10); White Blood Cell (WBC) Count 11.1 thou/uL (4.8-10.8)
[2017-07-16 14:05] LABS: Anion Gap 14 mmol/L (10-20); BUN (Urea Nitrogen) 15 mg/dL (8.4-25.7); Calc. Creatinine Clearance 79 mL/min (70-130); Calcium 8.5 mg/dL (7.8-10.44); Carbon Dioxide 17 mmol/L (23-31); Chloride 106 mmol/L (98-107); Estimated GFR-MDRD 62; Glucose 119 mg/dL (83-110); Potassium 3.5 mmol/L (3.5-5.1); Sodium 133 mmol/L (136-145)
--- NOTE | 2017-07-16 15:44 | PRG ---
DATE OF SERVICE: 07/16/2017 SUBJECTIVE: Feeling better than yesterday, breathing better, less cough, a Barnett catheter in place. No diarrhea, no abdominal pain. PHYSICAL EXAMINATION: VITAL SIGNS: Showed T-max 98.8, blood pressure 170/60, pulse 100, respirations 18, O2 sat 94%. GENERAL: Appears more restful. Speech is better. Did not cough while I was there. LUNGS: With much clear breath sounds. HEART: S1 and S2, regular rate. ABDOMEN: Soft. Moves all extremities equally. LABORATORY DATA: White cell count is 11.1, hemoglobin 11.6, platelets 178. Chemistry with creatinin e improved down to 1.15. Microbiology with E. coli as noted before. ASSESSMENT AND DISCUSSION: Peripheral vascular disease with prior endarterectomies, recurrent nephro lithiasis requiring interventions and antimicrobial therapy in the past, chronic colonization of urin nadir tract with ESBL E. coli since 2014, probably secondary to colonization of nephrolithiasis, now wi th another episode. Patient to undergo removal of the stone next week. Apparently, we will transiti on him to ertapenem in the outpatient setting and treat him for 4 weeks, maybe longer.
[2017-07-16 15:55] VITALS: BP 135/66; TEMP 98.5
--- NOTE | 2017-08-05 08:15 | PQF ---
TUCKERSERA HESTER ERENDIRAALEKSEY DO [id number] [facility]- B10 [id number] CLINICAL DOCUMENTATION CLARIFICATION FORM: POST DISCHARGE Addendum to original discharge summary date: ____ Late entry note date: __ DATE: 08/05/17 ATTN: Dr. Uribe Please exercise your independent, professional judgment in responding to the clarification form. Clinical indicators are provided on the bottom of this form for your review Please check appropriate box(s) to clarify if the following diagnosis has been ruled in or ruled out: Sepsis (CDI/Coding list diagnosis here) [ ] Ruled in diagnosis [ ] Continue to treat [ ] Resolved [ ] Ruled out diagnosis [ ] Cannot rule out diagnosis [ ] Other diagnosis [ ] Unable to determine In addition, please specify: Present on Admission (POA): [ x ] Yes [ ] No [ ] Unable to determine CLINICAL INDICATORS - SIGNS / SYMPTOMS / LABS Pt admitted w hydronephrosis with obstructing stone and UTI with colonization. Consult by Dr. Farah notes possible/probable sepsis, Dr. Goldstein consult notes sepsis, Dr. Delong notes urosepsis and sepsis. As there is no discharge summary at time of review and the neither the attending Dr. Uribe nor the PCP Dr. Farah note sepsis, would you please clarify whether sepsis was ruled in or out. RISK FACTORS hydronephrosis with obstructing stone UTI with colonization fever 102 with leukocytosis TREATMENTS IV antibiotics stone extraction with stent insertion MTDD
--- NOTE | 2017-08-05 08:21 | PQF ---
SERA CEBALLOSE ERENDIRAALEKSEY DO [id number] [facility]- B10 [id number] CLINICAL DOCUMENTATION CLARIFICATION FORM: POST DISCHARGE Addendum to original discharge summary date: ____ Late entry note date: __ DATE: 08/05/17 ATTN: Dr. Woodward Please exercise your independent, professional judgment in responding to the clarification form. Clinical indicators are provided on the bottom of this form for your review Please check appropriate box(s): [ ] Acute Respiratory Failure: [ ] with Hypoxia[ ] with Hypercapnia [ ] Acute On Chronic Respiratory Failure: [ ] with Hypoxia [ ] with Hypercapnia [ ] Acute Respiratory Failure due to: (etiology) [ ] Acute Respiratory Insufficiency following (if applicable): [ ] trauma [ ] surgery [ ] Chronic Respiratory Failure only [ ] with Hypoxia [ ] with Hypercapnia [ ] Hypoxia [ ] Other diagnosis [ ] Unable to determine In addition, please specify: Present on Admission (POA): [ ] Yes [ ] No [ ] Unable to determine CLINICAL INDICATORS - SIGNS / SYMPTOMS / LABS It is also noted in nursing that patient's respiratory status decompensated on with O2 decreasing to 86% requiring a bump in supplemental O2 from 2-3L which increases his O2 sat to 95%. Vital flowsheets note the pt w P92, RR 24 placed on 2L O2 at time of presentation with the need for DuoNebs and supplemental O2 throughout the visit- at times satting in the low 90s on O2. RISK FACTORS History of home O2 use Sepsis TREATMENTS: Oxygen Monitoring of oxygenation status Respiratory treatments ABGs Antibiotics IV He is not my pt; patient followed by Dr. Doreen MARTINEZ
== END 2017-07-16 16:59 | disposition home or self-care (01) | DRG 872 ==
LOC: ERS 19:42 → IMCU/EMU 23:28 → SDC/OP 23:28 → IMCU/EMU 07-14 00:16 → T4-B 07-15 10:47
PROVIDERS: ADMIT Urology; ATTEND Urology
PROC: 0T768DZ Dilation of Right Ureter with Intraluminal Device, Via Natural or Artificial Opening Endoscopic (ICD-10-PCS; principal; 2017-07-14)
PROC: 02HV33Z Insertion of Infusion Device into Superior Vena Cava, Percutaneous Approach (ICD-10-PCS; 2017-07-16)
PROC: B548ZZA Ultrasonography of Superior Vena Cava, Guidance (ICD-10-PCS; 2017-07-16)
DX: A41.9 Sepsis, unspecified organism (principal); N13.6 Pyonephrosis; N30.40 Irradiation cystitis without hematuria; E78.5 Hyperlipidemia, unspecified; B96.20 Unspecified Escherichia coli [E. coli] as the cause of diseases classified elsewhere; H35.30 Unspecified macular degeneration; I25.10 Atherosclerotic heart disease of native coronary artery without angina pectoris; I73.9 Peripheral vascular disease, unspecified; Z85.46 Personal history of malignant neoplasm of prostate; J45.909 Unspecified asthma, uncomplicated; I12.9 Hypertensive chronic kidney disease with stage 1 through stage 4 chronic kidney disease, or unspecified chronic kidney disease; N18.9 Chronic kidney disease, unspecified; Z87.891 Personal history of nicotine dependence
CPT/HCPCS: 36415; 36416; 36569; 71045; 71046; 74176; 74420; 80048; 80053; 81003; 81015; 83605; 83880; 85025; 87040; 87077; 87086; 87186; 93005; 94640; 96361; 96365; 96367; 96374; 96375; C1751; C1758; C1769; J0360; J0696; J1940; J2001; J2185; J2543; J2704; J3010; J3370; J7050; J7620; Q9961

== ENCOUNTER 2017-07-17 12:11 | Emergency (ER) | payer MEDICARE, OTHER ==
[2017-07-17 14:10] LABS: Hemoglobin 11.8 g/dL (14.0-18.0); Mean Corpuscular HGB CONC 34.7 g/dL (32.0-36.0); Mean Corpuscular Hemoglobin 32.3 pg (27.0-31.0); Mean Corpuscular Volume 93.2 fl (80.0-94.0); Mean Platelet Volume 7.8 fL (7.4-10.4); Platelet Count 190 thou/uL (130-400); RBC Distribution Width 13.9 % (11.5-14.5); Red Blood Cell (RBC) Count 3.65 mill/uL (4.70-6.10); White Blood Cell (WBC) Count 13.3 thou/uL (4.8-10.8)
[2017-07-17 14:14] LABS: Bilirubin Negative (Negative); Blood, Urine Large (Negative); Clarity CLOUDY (Clear); Glucose, Urine (Dipstick) 100 mg/dL (Negative); Leukocyte Large (Negative); Nitrite Negative (Negative); Protein, Urine (Dipstick) 100 mg/dL (Neg-Trace); Specific Gravity, Urine 1.017 (1.002-1.036); Urobilinogen 0.2 mg/dL (0.2-1.0)
[2017-07-17 14:17] LABS: Bacteria/HPF None Seen HPF (None Seen); Hyaline Casts/LPF 4-6 HYALINE CAST LPF (0-3 Hyaline); Pathc Cast-AUWi Flag 0.87 (0-2.49)
[2017-07-17 14:19] LABS: Yeast-AUWi Flag 40.1 (0-25.0)
[2017-07-17 14:28] LABS: RBC/HPF GREATER THAN 50-TNTC HPF (0-3); Renal Epithelial None Seen HPF (0-3); Transitional Epithelial NONE SEEN HPF (0-3); Yeast-All Forms None Seen HPF (None Seen)
[2017-07-17] MEDS ORDERED: Ertapenem 1 GM in Sodium Chloride 0.9% 100 ML IVPB ONE (14:30)
[2017-07-17 14:33] LABS: Anion Gap 12 mmol/L (10-20); BUN (Urea Nitrogen) 13 mg/dL (8.4-25.7); Calc. Creatinine Clearance 0 mL/min (70-130); Calcium 8.8 mg/dL (7.8-10.44); Carbon Dioxide 22 mmol/L (23-31); Chloride 104 mmol/L (98-107); Estimated GFR-MDRD 59; Glucose 158 mg/dL (83-110); Potassium 3.7 mmol/L (3.5-5.1); Sodium 134 mmol/L (136-145)
[2017-07-17 14:45] LABS: Band 1 % (5-11); Eosinophils 1 % (0-10); Lymphocytes 3 % (21-51); MDiff Complete? YES; Monocytes 9 % (0-10); Neutrophil 86 % (42-75); PLT Morphology Comment Appears Adequate
== END 2017-07-17 17:10 | disposition home or self-care (01) ==
LOC: ERS 12:11
DX: R39.11 Hesitancy of micturition (principal); E78.5 Hyperlipidemia, unspecified; E11.9 Type 2 diabetes mellitus without complications; I10 Essential (primary) hypertension; J45.909 Unspecified asthma, uncomplicated; Z87.891 Personal history of nicotine dependence; Z87.442 Personal history of urinary calculi; Z79.899 Other long term (current) drug therapy
CPT/HCPCS: 80048; 81003; 81015; 85025; 96365; J1335; J7050

== ENCOUNTER 2017-07-21 10:44 | Observation (INO) | payer MEDICARE, OTHER ==
[2017-07-21 11:47] LABS: #Eosinphils 0.4 thou/uL (0.0-0.7); #Lymphocytes 0.6 thou/uL (1.20-3.40); #Monocytes 0.6 thou/uL (0.11-0.59); %Basophils 0.5 % (0.0-1.0); %Eosinophils 6.3 % (0.0-10.0); %Lymphocytes 8.3 % (21.0-51.0); %Monocytes 9.7 % (0.0-10.0); %Neutrophils 75.1 % (42.0-75.0); Hemoglobin 11.1 g/dL (14.0-18.0); Mean Corpuscular HGB CONC 33.5 g/dL (32.0-36.0); Mean Corpuscular Hemoglobin 31.5 pg (27.0-31.0); Mean Corpuscular Volume 94.1 fl (80.0-94.0); Mean Platelet Volume 7.8 fL (7.4-10.4); Platelet Count 285 thou/uL (130-400); Red Blood Cell (RBC) Count 3.53 mill/uL (4.70-6.10); White Blood Cell (WBC) Count 6.6 thou/uL (4.8-10.8)
[2017-07-21 12:09] LABS: ALT (SGPT) 12 U/L (8-55); AST (SGOT) 13 U/L (5-34); Albumin 3.2 g/dL (3.4-4.8); Alkaline Phosphatase 69 U/L (40-150); Anion Gap 12 mmol/L (10-20); BUN (Urea Nitrogen) 18 mg/dL (8.4-25.7); Bilirubin, Total 0.5 mg/dL (0.2-1.2); Calc. Creatinine Clearance 0 mL/min (70-130); Calcium 8.9 mg/dL (7.8-10.44); Carbon Dioxide 23 mmol/L (23-31); Chloride 105 mmol/L (98-107); Estimated GFR-MDRD 61; Globulin 2.5 g/dL (2.4-3.5); Glucose 113 mg/dL (83-110); Potassium 3.7 mmol/L (3.5-5.1); Protein, Total 5.7 g/dL (5.8-8.1); Sodium 136 mmol/L (136-145)
[2017-07-21 12:14] LABS: CKMB 2.1 ng/mL (0-6.6); Troponin I 0.017 ng/mL (< 0.028)
--- NOTE | 2017-07-21 12:18 | RAD ---
PORTABLE CHEST ONE VIEW: 07/21/2017 11:17 a.m. HISTORY: Dyspnea. COMPARISON: 07/15/2017 FINDINGS: There has been interval placement of a left upper extremity PICC line with the tip in the projection of the SVC. Heart size is borderline. There is pulmonary vascular congestion with small bilateral p leural effusions. Mild bibasilar infiltrates versus atelectatic changes are noted. No pneumothorace s are seen. POS: [facility]
[2017-07-21] MEDS ORDERED: Iothalamate Meglumine 60% 50 ML VIAL FS ONE (12:49)
--- NOTE | 2017-07-21 13:05 | CT ---
CT BRAIN WITHOUT CONTRAST: History: Altered mental status. FINDINGS: Comparison is made with exam of 11-11-16. Changes of cortical atrophy and chronic small vessel ischemic disease are again seen. The ventricular size is appropriate and the basilar cisterns patent. Small old infarction is noted in the right cere bellar hemisphere. No evidence of acute infarct, hemorrhage, midline shift, or abnormal extraaxial fluid collections are seen. The bony calvarium is intact. The visualized paranasal sinuses and mastoid air cells are well aerated. IMPRESSION: No CT evidence of acute intracranial process. POS: [facility]
[2017-07-21] MEDS ORDERED: Fentanyl 100 MCG/2 ML VIAL ONE (13:15)
[2017-07-21] MEDS ORDERED: Albuterol Sulfate 1.25 MG/3 ML NEB ONE (13:49)
[2017-07-21] MEDS ORDERED: Sodium Chloride For Inhalation 0.9% 3 ML NEB ONE (13:50)
[2017-07-21] MEDS ORDERED: Meropenem 1 GM in Sodium Chloride 0.9% 100 ML IVPB SCH (14:00)
[2017-07-21] MEDS ORDERED: Furosemide 20 MG/2 ML VIAL ONE ×2 (14:05→14:42)
[2017-07-21] MEDS ORDERED: Ertapenem 1 GM in Sodium Chloride 0.9% 100 ML IVPB SCH (14:30)
[2017-07-21] MEDS ORDERED: Digoxin 0.5 MG/2 ML AMP ONE (14:42)
[2017-07-21] MEDS ORDERED: PROPOFOL 200 MG/20 ML VIAL ONE (15:01)
[2017-07-21] MEDS ORDERED: Lidocaine 1% PF 5 ML VIAL ONE (15:01)
[2017-07-21] MEDS ORDERED: hydrALAZINE 20 MG/ML VIAL ONE (16:40)
--- NOTE | 2017-07-21 17:16 | RAD ---
INTRAOPERATIVE FLUOROSCOPY 07/21/17 HISTORY: Stent placement. Right ureteroscopy. FINDINGS/IMPRESSION: Total of 11 fluoroscopic images demonstrate retrograde opacification of the right ureter. Mild promin ence of the intra and extrarenal collecting system is noted. POS: [facility]
[2017-07-21] MEDS ORDERED: Tetrahydrozoline 0.05% OPTH 15 ML BOT EA EYE PRN (17:40)
[2017-07-21 18:00] VITALS: BMI 28.7
--- NOTE | 2017-07-21 18:54 | OP ---
DATE OF PROCEDURE: 07/21/2017 PREOPERATIVE DIAGNOSIS: Right ureteral stone. POSTOPERATIVE DIAGNOSIS: Right ureteral stone. PROCEDURE PERFORMED: Cystoscopy, discontinue right stent, right rigid ureteroscopy with stone retrie iván, right flexible ureteroscopy and Barnett placement. SURGEON: Bam Logan M.D. ANESTHETIC: General with oral obturator. SPECIMENS REMOVED: Stone for gross only. FINDINGS: He does have some scarring at the membranous urethra from prior prostate cancer treatment. OPERATIVE TECHNIQUE: After obtaining written and verbal consent from the patient, after starting his Invanz and has been cleared by Anesthesia, he was taken to the operating suite. He was placed in th e supine position on the treatment table. PlexiPulses were placed on his lower extremities and turne d on. He was given a general anesthetic and oral obturator intubation. He was then placed in the do rsal lithotomy position and sterilely prepped and draped. The patient then underwent cystoscopy. We initially used the 17 [address] [place]ian sheath because of his known history of strictures and a 30-degree lens. This was well lubricated, passed under direct vision through the male urethra to the level of the m embranous urethra. There was some area that you could see where stricture was reforming, so we fed a guidewire across this into the bladder and then followed the guidewire in. This dilated this area o f stricture easily and at this point it is quite soft as he had a cystoscopy done about a week or so ago. We then removed the instruments and went back in with a 22-St Lucian sheath that now easily passed and went into the bladder. The distal end of the double-J stent was grasped and brought out through the urethral meatus. A guidewire was fed up through this and the stent was removed over the guidewi re and discarded. We then brought in a small caliber graduated rigid ureteroscope, passed it through the male urethra into the bladder and up adjacent to the guidewire. In the lower third of the right ureter, the stone was encountered and was basketed and removed intact. We did a retrograde study at on the tax expert film showed what appeared to be another calcification between the iliac crest and sac roiliac joint. We did retrograde. We could not prove that this was not in the ureter, so we at this point re fed the guidewire up this side and then backloaded a flexible ureteroscope over the guidewi re and went up to the UPJ and then slowly came down in a retrograde manner. Under direct vision, we found no other stones to be present. At this point, we did not replace the stent. We did go ahead, however, and passed a 20-St Lucian Barnett catheter and placed 20 mL in the balloon and hooked up to gravi ty. He was taken out of the dorsal lithotomy position. He was awakened and extubated and taken by lizeth johnson to the recovery room.
[2017-07-21] MEDS: Mometasone/Formoterol 120 PUFF INHALER INH SCH (20:11)
[2017-07-21] MEDS: Famotidine 20 MG TAB PO SCH (21:31)
[2017-07-21] MEDS: Citrucel 500 MG TAB PO SCH (21:33)
[2017-07-21] MEDS: Oxybutynin ER 5 MG TAB PO SCH (21:33)
[2017-07-21] MEDS ORDERED: Furosemide 40 MG/4 ML VIAL SLOW IVP SCH (22:00)
[2017-07-22 05:34] LABS: Anion Gap 11 mmol/L (10-20); BUN (Urea Nitrogen) 14 mg/dL (8.4-25.7); Calc. Creatinine Clearance 67 mL/min (70-130); Calcium 8.4 mg/dL (7.8-10.44); Carbon Dioxide 26 mmol/L (23-31); Chloride 103 mmol/L (98-107); Estimated GFR-MDRD 57; Glucose 105 mg/dL (83-110); Potassium 3.4 mmol/L (3.5-5.1); Sodium 137 mmol/L (136-145)
[2017-07-22] MEDS: Mometasone/Formoterol 120 PUFF INHALER INH SCH ×2 (07:08→19:22)
[2017-07-22] MEDS ORDERED: VICTOZA 1.2 MG SCH (07:30)
[2017-07-22] MEDS ORDERED: Pioglitazone HCl 15 MG TAB PO SCH (08:00)
[2017-07-22] MEDS ORDERED: Meloxicam 15 MG TAB PO SCH (09:00)
[2017-07-22] MEDS: metFORMIN 500 MG TAB PO SCH ×2 (09:27→17:58)
[2017-07-22] MEDS: Amlodipine 5 MG TAB PO SCH (09:28)
[2017-07-22] MEDS: Famotidine 20 MG TAB PO SCH ×2 (09:28→20:58)
[2017-07-22] MEDS: Oxybutynin ER 5 MG TAB PO SCH ×2 (09:28→20:58)
[2017-07-22] MEDS: Citrucel 500 MG TAB PO SCH ×2 (09:29→20:59)
[2017-07-22] MEDS: Montelukast Sodium 10 mg Tablet PO SCH (09:29)
[2017-07-22] MEDS: Atorvastatin Calcium 10 MG TAB PO SCH (09:29)
[2017-07-22] MEDS: Calcium Carbonate 500 MG TAB PO SCH ×2 (09:29→17:55)
--- NOTE | 2017-07-22 12:55 | CON ---
DATE OF CONSULTATION: 07/22/2017 ATTENDING PHYSICIAN: Dr. Bam Logan HISTORY OF PRESENT ILLNESS: The patient is a 76-year-old male who underwent an operative procedure for renal stone performed by Dr. Logan. Prior to the procedure his had noted some dif ficulty speaking, talking. He was sent to the emergency room. He was seen and evaluated there. He underwent CT scan of the brain as well as a chest x-ray. Chest x-ray was significant for some pulmon nadir edema which had been previously noted. He had elevated BNP. He had not noted any chest pain. H e has noticed some coughing. No significant shortness of breath otherwise noted. He does have a his tory of atherosclerotic coronary artery disease, he does have a history of peripheral vascular diseas e as well as cerebral vascular disease. He underwent successful procedure yesterday with general anesthesia. He was treated yesterday with s ome increased doses of IV Lasix. Today, he states he is feeling well. He notes no chest pain, no si gnificant shortness of breath, still notes some cough, no fever has been noted. He does see Cardiolo gy as well, but has never had any diagnosis of congestive heart failure that he is aware, nor of me a s his primary care physician that I am aware of. He does have a history as noted peripheral vascular disease, cerebrovascular disease, diastolic coronary artery disease, type 2 diabetes mellitus as wel l as asthma. CURRENT MEDICATIONS: Amlodipine 5 mg daily, atorvastatin 10 mg daily, Symbicort twice daily, calcium carbonate. INCOMPLETE DICTATION
[2017-07-22] MEDS ORDERED: Ertapenem 1 GM in Sodium Chloride 0.9% 100 ML IVPB SCH (13:00)
[2017-07-22] MEDS ORDERED: Potassium Chloride 20 MEQ TAB PO SCH ×2 (13:30→20:00)
[2017-07-22] MEDS ORDERED: Furosemide 40 MG/4 ML VIAL SLOW IVP SCH ×2 (13:45→22:00)
--- NOTE | 2017-07-22 19:53 | CON ---
DATE OF CONSULTATION: 07/22/2017 REASON FOR CONSULTATION: Congestive heart failure. HISTORY OF PRESENT ILLNESS: Mr. Andrade is a 76-year-old man. He recently has been found to have kid ezra stones. The patient came in yesterday to have his kidney stone removed. He was found to be in c ongestive heart failure, but fortunately he was able to be gotten through the procedure adequately. The patient came to the hospital with shortness of breath and was admitted to the hospital for heart failure after he was found to have evidence of heart failure on chest x-ray and increased BNP. There is no chest pain or pressure. PAST MEDICAL HISTORY: 1. Diabetes for at least 10 years. 2. Hypercholesterolemia. 3. Peripheral vascular disease involving the lower extremities as well as the carotid arteries. 4. Hypertension. 5. Reactive airway disease. PAST SURGICAL HISTORY: 1. He has had bilateral carotid endarterectomy. 2. He has had bilateral endarterectomy at the lower extremities by Dr. Merritt. I believe these are t he common femorals and the profunda, we will review these notes further, but he has had the surgical therapies done here. 3. Recent kidney stone removal. ALLERGIES: 1. METFORMIN at high dose or unknown dose may have caused nausea or diarrhea. 2. ASPIRIN?. 3. IBUPROFEN. MEDICATIONS: The patient is on, 1. Actos. 2. Metformin 500 mg twice a day. 3. He received furosemide last night. 4. Amlodipine 5 mg a day. 5. Atorvastatin 10 mg a day. REVIEW OF SYSTEMS: Constitutional: No significant weight gain or loss. Vision: No changes. Heari ng: No changes. Pulmonary: Positive for shortness of breath. Cardiac: No chest pain or pressure. Positive for shortness of breath. Gastrointestinal: No nausea, vomiting, or diarrhea. PHYSICAL EXAMINATION: GENERAL: This is an elderly 76-year-old gentleman sitting in a chair, awake and alert. Family is wi th him. VITAL SIGNS: Blood pressure earlier 161/85, pulse 83, now 158/84, pulse 70. EYES: Sclerae nonicteric. Mouth mucous membranes moist. NECK: Supple, no lymphadenopathy. LUNGS: Clear, no wheezing, rales or rhonchi. CARDIOVASCULAR: Normal S1, normal S2. There is no murmur, rub or gallop. ABDOMEN: Obese, nontender, no hepatosplenomegaly. EXTREMITIES: No clubbing or cyanosis. There is no significant edema. SKIN: Warm and dry. X-RAY FINDINGS: EKG previously revealed sinus rhythm. On examination, he seems to have some prematu re contractions. Chest x-ray showed pulmonary vascular congestion. LABORATORY DATA: BNP 1173. Hemoglobin 11.1. Troponin level 0.017, which is in the normal range. ASSESSMENT: 1. Congestive heart failure. At this point, we do not know if it is systolic or diastolic or mixed, but I suspect this is diastolic. The heart does not look significantly enlarge, but we would have t o have an echocardiogram to evaluate the ejection fraction. 2. Diabetes. 3. Hypercholesterolemia. 4. Peripheral vascular disease involving the lower extremities as well as carotid arteries. 5. Obesity. 6. Hypertension. PLAN: 1. We will need to stop Actos in view of the heart failure. 2. Continue diuresis. 3. Add JUDY inhibitor. 4. Echocardiogram to be done. 5. Check lipids. We will probably need a higher dose statin to get the LDL below 70. 6. Ultimately, we will need antiplatelet drugs, cannot do it now. He still has some blood in the Fo anayeli bag catheter. 7. We will recheck tomorrow. Should be able to hopefully be home tomorrow and do an outpatient stre ss test and elected screen for significant underlying atherosclerotic heart disease.
[2017-07-22] MEDS ORDERED: OXYBUTYNIN CHLORIDE 15 MG PO SCH (21:00)
[2017-07-22] MEDS ORDERED: Non-Formulary Item 1 EACH (Zantac 150 MG) PO SCH (21:00)
[2017-07-23 05:12] LABS: Anion Gap 9 mmol/L (10-20); BUN (Urea Nitrogen) 16 mg/dL (8.4-25.7); Calc. Creatinine Clearance 58 mL/min (70-130); Calcium 8.5 mg/dL (7.8-10.44); Carbon Dioxide 29 mmol/L (23-31); Cardiac Risk 3.6 (Less than 4.5); Chloride 102 mmol/L (98-107); Cholesterol 130 mg/dl (< 200 Desired); Estimated GFR-MDRD 49; Glucose 119 mg/dL (83-110); HDL Cholesterol 36 mg/dL (>60 Neg Risk); LDL Cholesterol, Calculated 67 mg/dL; Potassium 3.9 mmol/L (3.5-5.1); Sodium 136 mmol/L (136-145); Triglycerides 134 mg/dL (Less than 150)
--- NOTE | 2017-07-23 07:26 | EKG ---
Test Reason : Blood Pressure : / mmHG Vent. Rate : 072 BPM Atrial Rate : 073 BPM P-R Int : 184 ms QRS Dur : 084 ms QT Int : 406 ms P-R-T Axes : 132 012 023 degrees QTc Int : 444 ms Unusual P axis, possible ectopic atrial rhythm with occasional Premature ventricular complexes Abnormal ECG When compared with ECG of 21-JUL-2017 11:18, (Unconfirmed) Ectopic atrial rhythm has replaced Sinus rhythm Confirmed by DR. Carl BOLIVAR ([id number]) on 07/23/2017 7:25:42 AM Referred By: AVINASH Confirmed By:DR. Carl BOLIVAR
[2017-07-23] MEDS: Mometasone/Formoterol 120 PUFF INHALER INH SCH (08:20)
--- NOTE | 2017-07-23 08:29 | PRG ---
DATE OF SERVICE: 07/23/2017 Mr. Andrade is resting in bed. He is feeling comfortable, no medical complaints are noted. I have re viewed notes. Dr. Escobar has requested he come off Actos plus met. He probably will be able to be d ischarged today. PHYSICAL EXAMINATION: LUNGS: Clear. HEART: Reveals no murmur. IMPRESSION: 1. New onset of probable diastolic dysfunction. 2. Congestive heart failure. PLAN: The patient can be discharged home safely. He will continue Actos plus metformin through the weekend. We will start the process of withdrawing Actos next Wednesday as he follows up with me at that time as well as Dr. Logan. The patient has been informed of these findings and we will institute f urther diabetic control with other measures stopping the Actos.
[2017-07-23] MEDS ORDERED: Lisinopril 5 MG TAB PO SCH (09:00)
[2017-07-23] MEDS: Citrucel 500 MG TAB PO SCH (09:07)
[2017-07-23] MEDS: Famotidine 20 MG TAB PO SCH (09:08)
[2017-07-23] MEDS: Calcium Carbonate 500 MG TAB PO SCH (09:08)
[2017-07-23] MEDS: Oxybutynin ER 5 MG TAB PO SCH (09:08)
[2017-07-23] MEDS: Amlodipine 5 MG TAB PO SCH (09:09)
[2017-07-23] MEDS: Atorvastatin Calcium 10 MG TAB PO SCH (09:10)
[2017-07-23] MEDS: Montelukast Sodium 10 mg Tablet PO SCH (09:10)
[2017-07-23] MEDS: metFORMIN 500 MG TAB PO SCH (09:10)
[2017-07-23 11:56] VITALS: BP 160/81; TEMP 98.1
[2017-07-23] MEDS ORDERED: MEROPENEM 1 GM/50 ML 1 GM in Premix Bag 1 BAG IVPB SCH (13:15)
[2017-07-23] MEDS ORDERED: Meropenem 1 GM in Sterile Water 20 ML SLOW IVP SCH (13:15)
--- NOTE | 2017-07-23 16:30 | PRG ---
DATE OF SERVICE: 07/23/2017 SUBJECTIVE: Mr. Gannon is doing better today. He is not short of breath. He still has a cough, but has been going on for several weeks. He has no chest pain. He is up in the chair. OBJECTIVE: VITAL SIGNS: The patient's blood pressure is still high at 160/80, pulse 68. LUNGS: Clear. There is no wheezing. CARDIAC: Normal S1, normal S2. ABDOMEN: Soft, nontender. EXTREMITIES: There is no edema. LABORATORY DATA: His creatinine went from 1.17 to 1.4 with the diuresis. Potassium is 3.9. He did receive 80 mEq potassium yesterday. BNP yesterday was 1173. The echocardiogram showed normal left ventricular systolic function. ASSESSMENT: 1. Kidney stones. 2. Hypertension. 3. Diastolic congestive heart failure, improved. 4. Renal function with estimated GFR went from 61 to 49 with diuresis. PLAN: 1. We will change him to hydrochlorothiazide 50 mg a day instead of furosemide. This will reduce ur inary calcium and may reduce the chance of further kidney stones. 2. Potassium 20 mEq a day. 3. No anticoagulants or antiplatelet drugs at this point due to hematuria. 4. He will be seen in the office for followup. Need to do stress testing. The patient is to keep t he cholesterol level is low. His LDL was 67 on this admission, but he has been through some major il lness and therefore his cholesterol may normally be higher. The LDL in 2016 was 101 and 87, likely a t some point need to change the statin to a stronger statin such as atorvastatin at least 20 mg a day as he does have vascular disease. The patient will be followed up in the office.
[2017-07-24] MEDS ORDERED: Potassium Chloride 20 MEQ TAB PO SCH (08:00)
[2017-07-24] MEDS ORDERED: Hydrochlorothiazide 25 MG TAB PO SCH (09:00)
[2017-07-27 17:13] LABS: CA Oxalate Monohydrate 75 % (.); CA Phosphate 20 % (.); Color Tan (.); Stone Size 4x4x2 mm (.); Stone Weight 37.7 mg (.)
== END 2017-07-23 15:35 | disposition home or self-care (01) ==
LOC: ERS 10:44 → SDC 13:25 → SURG B 13:44
PROVIDERS: ADMIT Urology; ATTEND Urology
PROC: 0TC68ZZ Extirpation of Matter from Right Ureter, Via Natural or Artificial Opening Endoscopic (ICD-10-PCS; principal; 2017-07-21)
PROC: 0T9680Z Drainage of Right Ureter with Drainage Device, Via Natural or Artificial Opening Endoscopic (ICD-10-PCS; 2017-07-21)
DX: N20.1 Calculus of ureter (principal); E78.00 Pure hypercholesterolemia, unspecified; E11.51 Type 2 diabetes mellitus with diabetic peripheral angiopathy without gangrene; J45.909 Unspecified asthma, uncomplicated; I11.0 Hypertensive heart disease with heart failure; I50.30 Unspecified diastolic (congestive) heart failure; E66.9 Obesity, unspecified; Z68.28 Body mass index [BMI] 28.0-28.9, adult; Z79.84 Long term (current) use of oral hypoglycemic drugs; Z79.899 Other long term (current) drug therapy; Z88.6 Allergy status to analgesic agent; Z88.8 Allergy status to other drugs, medicaments and biological substances
CPT/HCPCS: 52332; 52352; 70450; 71045; 74420; 80048 ×2; 80053; 80061; 82365; 82553; 82962; 83880; 84484; 85025; 88300; 93005 ×2; 93306; 94640 ×3; 94664; 96365; 96374; 96375; 96376; 99285; C1758; G0378; 36415; 36416; 93010; A4216; J0131; J0360; J1160; J1335; J1940; J2001; J2185; J2704; J3010; J7050; Q9961

== ENCOUNTER 2017-08-02 12:34 | Outpatient (CLI) | payer MEDICARE, OTHER ==
--- NOTE | 2017-08-02 14:28 | RAD ---
PA AND LATERAL CHEST: Date: 08/02/17 INDICATION: History of dyspnea. COMPARISON: Prior exam dated 07/21/17. FINDINGS: Severe COPD change is similar. Mild cardiomegaly persists. Pulmonary vascular congestion is improved. There are residual small bilateral pleural effusions. There is a left-sided PICC line in place. Mult ilevel spondylosis again seen involving the thoracic spine. IMPRESSION: 1. Improvement in the central edema pattern when compared to the prior dated 07/21/17. 2. Improvement in bilateral pleural effusion. Tiny pleural effusions remain. 3. Stable COPD change. 4. Stable PICC. POS: [facility]
== END 2017-08-02 12:35 | disposition home or self-care (01) ==
LOC: RAD 12:34
PROVIDERS: ATTEND Internal Medicine Pulmonary Disease
DX: J90 Pleural effusion, not elsewhere classified (principal)
CPT/HCPCS: 71046

== ENCOUNTER 2017-10-28 13:41 | Outpatient (CLI) | payer MEDICARE, OTHER | END 2017-10-28 13:42 | disposition home or self-care (01) | LOC: CTENTCT 13:41 | PROVIDERS: ATTEND Otolaryngology Plastic Surgery within the Head & Neck | DX: J32.9 Chronic sinusitis, unspecified (principal) | CPT/HCPCS: 70486 ==

== ENCOUNTER 2017-12-20 02:55 | Inpatient (IN) | payer MEDICARE, OTHER ==
[2017-12-20] MEDS ORDERED: Labetalol HCl 100 MG/20 ML VIAL ONE (03:22)
[2017-12-20] MEDS ORDERED: Nitroglycerin 2% Ointment 1 INCH/1 GM Packet ONE (03:31)
[2017-12-20] MEDS ORDERED: Furosemide 40 MG/4 ML VIAL ONE (03:31)
[2017-12-20 03:38] LABS: #Eosinphils 0.4 thou/uL (0.0-0.7); #Lymphocytes 0.9 thou/uL (1.20-3.40); #Neutrophils 11.9 thou/uL (1.40-6.50); %Basophils 0.1 % (0.0-1.0); %Eosinophils 2.6 % (0.0-10.0); %Monocytes 7.4 % (0.0-10.0); %Neutrophils 83.9 % (42.0-75.0); Hemoglobin 12.7 g/dL (14.0-18.0); Mean Corpuscular HGB CONC 31.9 g/dL (32.0-36.0); Mean Corpuscular Hemoglobin 27.7 pg (27.0-31.0); Mean Corpuscular Volume 86.9 fL (78.0-98.0); Mean Platelet Volume 7.3 fL (7.4-10.4); Platelet Count 355 thou/uL (130-400); RBC Distribution Width 14.4 % (11.5-14.5); Red Blood Cell (RBC) Count 4.59 mill/uL (4.70-6.10); White Blood Cell (WBC) Count 14.1 thou/uL (4.8-10.8)
[2017-12-20 03:57] LABS: ALT (SGPT) 10 U/L (8-55); AST (SGOT) 14 U/L (5-34); Albumin 4.1 g/dL (3.4-4.8); Alkaline Phosphatase 131 U/L (40-150); Anion Gap 16 mmol/L (10-20); BUN (Urea Nitrogen) 30 mg/dL (8.4-25.7); Bilirubin, Total 0.6 mg/dL (0.2-1.2); Calc. Creatinine Clearance 0 mL/min (70-130); Calcium 9.4 mg/dL (7.8-10.44); Carbon Dioxide 22 mmol/L (23-31); Chloride 98 mmol/L (98-107); Estimated GFR-MDRD 40; Globulin 3.2 g/dL (2.4-3.5); Glucose 179 mg/dL (83-110); Potassium 3.9 mmol/L (3.5-5.1); Protein, Total 7.3 g/dL (5.8-8.1); Sodium 132 mmol/L (136-145)
[2017-12-20 04:01] LABS: CKMB 2.4 ng/mL (0-6.6); Troponin I Less than 0.010 ng/mL (< 0.028)
[2017-12-20 05:06] LABS: Bilirubin Negative (Negative); Blood, Urine Negative (Negative); Clarity CLEAR (Clear); Glucose, Urine (Dipstick) Negative (Negative); Leukocyte Negative (Negative); Nitrite Negative (Negative); Protein, Urine (Dipstick) Negative (Neg-Trace); Specific Gravity, Urine 1.005 (1.002-1.036); Urobilinogen 0.2 mg/dL (0.2-1.0); pH, Urine 6.5 (5.0-9.0)
[2017-12-20] MEDS ORDERED: cefTRIAXone\\ROCEPHIN 1 GM VIAL ONE (05:49)
--- NOTE | 2017-12-20 07:51 | CT ---
CT OF THE BRAIN WITHOUT CONTRAST: INDICATION: Altered mental status. COMPARISON: Prior exam dated July 21, 2017. FINDINGS: Severe chronic small-vessel white matter ischemic change is stable. 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 Generalized cerebral and cerebellar atrophy is stable. No acute infarct, h emorrhage, or hydrocephalus is present. The septum pellucidum and third ventricle are midline. Ther e is moderate mucosal thickening within the ethmoid air cells which is new. Frontal sinuses and visu alized maxillary sinuses appear clear. The sphenoid sinuses and mastoid air cells are clear. The sk ull is intact. IMPRESSION: 1. No acute intracranial abnormality. 2. Stable chronic ischemic change. 3. New mild paranasal sinus disease involving the ethmoid air cells. POS: [facility]
--- NOTE | 2017-12-20 08:31 | RAD ---
CHEST 1 VIEW: Date: 12/20/17 HISTORY: Dyspnea. Pulmonary edema. COMPARISON: 11/15/17. FINDINGS: The cardiac silhouette is unremarkable. Pulmonary vasculature is slightly engorged with mild patchy b ibasilar infiltrates. Elevated left hemidiaphragm and adjacent atelectasis are similar in appearance to the prior exam. Mediastinum midline with aortic calcification. Old left rib fractures. IMPRESSION: 1. Borderline pulmonary vascular congestion. 2. Atherosclerosis. POS: [facility]
[2017-12-20 10:10] VITALS: BMI 28.7
[2017-12-20] MEDS ORDERED: Ondansetron ODT 4 MG TAB PO PRN (13:06)
[2017-12-20] MEDS ORDERED: Acetaminophen 325 MG TAB PO PRN (13:06)
[2017-12-20] MEDS ORDERED: Insulin Regular 300 UNITS/3 ML VIAL SC PRN (13:10)
[2017-12-20] MEDS ORDERED: Dextrose 50% Abboject 50 ML SYRINGE SLOW IVP PRN (13:10)
[2017-12-20] MEDS ORDERED: Dextrose 5% in Water 1,000 ML IV PRN (13:10)
[2017-12-20] MEDS ORDERED: Amlodipine 5 MG TAB PO SCH (17:15)
[2017-12-20] MEDS ORDERED: Hydrochlorothiazide 25 MG TAB PO SCH (17:15)
[2017-12-20] MEDS: Mometasone/Formoterol 120 PUFF INHALER INH SCH (18:16)
[2017-12-20] MEDS: Calcium Carbonate 500 MG TAB PO SCH (20:18)
[2017-12-20] MEDS: Guaifenesin DM 100-10/5 ML UDCUP PO PRN (20:18)
[2017-12-21] MEDS: Guaifenesin DM 100-10/5 ML UDCUP PO PRN ×4 (00:05→20:12)
--- NOTE | 2017-12-21 01:22 | HP ---
ADMITTING PHYSICIAN: Stef Farah M.D. HISTORY OF PRESENT ILLNESS: Patient is 77-year-old male, brought to the emergency room by EMS. noted change in mental status that she got it checked on about 2:00 in the morning. notes he was not answering questions appropriately, which she states was not normal for him. She does note patient carlos as been taking significant amounts of codeine for cough and rib pain. He has a history of some broke n ribs as well as using some Nyquil. He seemed to be confused and somewhat disoriented; however, at the time he arrived in the ER, he was alert and oriented x3. He was seen and evaluated in the emerge ncy room. CT scan of the brain was normal. Chest x-ray reported with pulmonary edema; however, over read by Radiology shows that there is no pulmonary edema. His BNP was noted to be normal. By the time of my arrival to see him at approximately 1:00 p.m. today, patient was feeling better. Carlos kelly still has not much memory of what is going on. His notes he seemed to be more of his same nor mal self. He does note he has been taking hydrocodone for pain, but however, he also notes that it h elped in cough and sleep at night. He also states he has been supplemented although he minimiz es the amount of has been taking. Otherwise, he has no other medical complaints. ALLERGIES: He is allergic to ASPIRIN. CURRENT MEDICATIONS: As follows, azelastine 1 puff each nostril daily, fluticasone 1 puff each nostr il twice a day, Zantac 75 mg daily, meloxicam 50 mg once daily, amlodipine 10 mg daily, Forteo as dir ected, ProAir inhaler 2 puffs 4 times a day, Plavix 75 mg daily, Singulair 10 mg daily, atorvastatin 10 mg daily, oxybutynin chloride 15 mg ER extended release 1 tablet daily, Symbicort 160/4.5 two puff s b.i.d., Victoza one shot daily, glimepiride 4 mg daily. PAST MEDICAL HISTORY: Positive for type 2 diabetes mellitus, atherosclerotic coronary artery disease , asthma, hypertension, osteoarthritis and positive for prostate cancer. PAST SURGICAL HISTORY: Positive for carotid endarterectomy, multiple angioplasties, peripheral vascu lar disease, stents placement, prostatectomy. SOCIAL/PERSONAL HISTORY: He is . He does not smoke. He drinks alcohol socially. REVIEW OF SYSTEMS: Gastrointestinal: Negative. Genitourinary: Negative. Cardiovascular: Otherwi se, negative. Respiratory: Otherwise negative. Neurologic: Positive as above, although he denies any significant slurring speech, difficulty speaking, talking, swallowing. PHYSICAL EXAMINATION: VITAL SIGNS: His O2 saturation is 97%, pulse 82 and regular, BP 155/71, respirations 16. GENERAL: He is alert, active, does not appear in any distress. HEENT: The TMs are clear. Throat shows some pharyngeal drainage. NECK: Supple, full range of motion, no masses. LUNGS: Reveal bilateral wheezes, without rhonchi. HEART: Regular rate and rhythm without murmurs, gallops or rubs. ABDOMEN: Soft, nontender, bowel sounds are present and active. No hepatosplenomegaly. No evidence of rebound or guarding. EXTREMITIES: No clubbing, edema or cyanosis noted. CHEST WALL: He does have significant rib tenderness from previous rib fractures approximately 3 week s ago. NEUROLOGICAL: He is an alert, oriented. He responds appropriately to commands. He is able to move all extremities. Cranial nerves II-XII appear to be grossly intact. LABORATORY DATA: His hemoglobin is 12.7, hematocrit 39.9, white blood count is 14.1, sodium 132, pot assium 3.9, chloride 98, CO2 is 22, BUN 30, creatinine 1.68, blood glucose is 179. BNP 76.3. Urinal ysis clear. LABORATORY AND X-RAY FINDINGS: Chest x-ray shows some pulmonary congestion. CT scan of the brain sh ows no evidence of any acute findings. IMPRESSION: A 77-year-old male reports of acute mental status changes. I believe this is probably r elated to inappropriate codeine use with mixing of Nyquil. I do not see any signs of sepsis or signs of significant pulmonary edema at this time. PLAN: Patient will be admitted. He does have some wheezing. We will go ahead and treat that with n ebulizations and give him some dose of Solu-Cortef. This possibly could be a rare pulmonary reactive airway disease causing his nasal congestion causing his coughing. He was given 1 gram of Rocephin i n the emergency room. I did see no evidence of any further need for antibiotics can make that natividadi on tomorrow. I have informed the patient of the finding. We will withhold all pain medication for t onight to see how he responds in a.m.
[2017-12-21] MEDS: Mometasone/Formoterol 120 PUFF INHALER INH SCH ×2 (06:16→18:47)
--- NOTE | 2017-12-21 07:59 | PRG ---
DATE OF SERVICE: 12/21/2017 Mr. Andrade is awake, but he seems to be slightly confused, although he recognizes this examiner by fa ce. He is making somewhat inappropriate remarks. He seems to be slightly combative. He is still co mplaining of a cough. PHYSICAL EXAMINATION: VITAL SIGNS: Temperature 97.6, blood pressure 174/75, O2 sats 92%, respirations 20. GENERAL: He does complain of a cough. LUNGS: Reveal decreased wheezes. HEART: Reveals no murmur. ABDOMEN: Soft, nontender, bowel sounds are present and active. There is no hepatosplenomegaly noted . LABORATORY DATA: His blood sugars are well controlled. IMPRESSION: 1. Mental status changes, appears to be agitated at this time. 2. Cough. 3. Previous history of type 2 diabetes mellitus. 4. Previous history of cerebrovascular disease status post carotid endarterectomy. PLAN: 1. We will repeat this lab today. 2. Get Pulmonary and Cardiology consult at the patient's request. I do not really see any cardiolog y find at this time. We will ask Dr. Delong to see the patient due to his recurrent coughing. Hopeful ly, can also help us elucidate some of his mental status changes. His family reports that he is not sleeping well without sleeping medicine last night due to his confusion. We will go ahead and give h im some IV Ativan at this time to kind of help relax him.
[2017-12-21] MEDS: Meloxicam 15 MG TAB PO SCH (08:06)
[2017-12-21] MEDS: Potassium Chloride 20 MEQ TAB PO SCH (08:06)
[2017-12-21] MEDS: Montelukast Sodium 10 mg Tablet PO SCH (08:07)
[2017-12-21] MEDS: Atorvastatin Calcium 10 MG TAB PO SCH (08:07)
[2017-12-21] MEDS: Amlodipine 5 MG TAB PO SCH (08:08)
[2017-12-21] MEDS: Famotidine 20 MG TAB PO SCH (08:08)
[2017-12-21] MEDS: Calcium Carbonate 500 MG TAB PO SCH ×2 (08:09→20:12)
[2017-12-21] MEDS: Lorazepam 2 MG/ML VIAL SLOW IVP PRN ×2 (08:10→15:20)
[2017-12-21 08:54] LABS: #Lymphocytes 0.5 thou/uL (1.20-3.40); #Monocytes 0.3 thou/uL (0.11-0.59); #Neutrophils 10.2 thou/uL (1.40-6.50); %Eosinophils 0.4 % (0.0-10.0); %Lymphocytes 4.2 % (21.0-51.0); %Neutrophils 92.3 % (42.0-75.0); Hemoglobin 12.9 g/dL (14.0-18.0); Mean Corpuscular HGB CONC 31.5 g/dL (32.0-36.0); Mean Corpuscular Hemoglobin 27.2 pg (27.0-31.0); Mean Corpuscular Volume 86.5 fL (78.0-98.0); Mean Platelet Volume 7.1 fL (7.4-10.4); Platelet Count 355 thou/uL (130-400); RBC Distribution Width 14.5 % (11.5-14.5); Red Blood Cell (RBC) Count 4.75 mill/uL (4.70-6.10); White Blood Cell (WBC) Count 11.1 thou/uL (4.8-10.8)
[2017-12-21] MEDS ORDERED: Hydrochlorothiazide 25 MG TAB PO SCH (09:00)
[2017-12-21 09:19] LABS: ALT (SGPT) 10 U/L (8-55); AST (SGOT) 11 U/L (5-34); Albumin 3.9 g/dL (3.4-4.8); Alkaline Phosphatase 120 U/L (40-150); Anion Gap 16 mmol/L (10-20); BUN (Urea Nitrogen) 22 mg/dL (8.4-25.7); Bilirubin, Total 0.4 mg/dL (0.2-1.2); Calc. Creatinine Clearance 61 mL/min (70-130); Calcium 9.7 mg/dL (7.8-10.44); Carbon Dioxide 21 mmol/L (23-31); Chloride 98 mmol/L (98-107); Estimated GFR-MDRD 52; Globulin 3.2 g/dL (2.4-3.5); Glucose 94 mg/dL (83-110); Potassium 3.8 mmol/L (3.5-5.1); Protein, Total 7.1 g/dL (5.8-8.1); Sodium 131 mmol/L (136-145)
--- NOTE | 2017-12-21 09:47 | CON ---
DATE OF CONSULTATION: 12/21/2017 HISTORY OF PRESENT ILLNESS: He is a 77-year-old gentleman admitted to the hospital with metabolic en cephalopathy, cough. Several weeks ago he apparently sustained a fall and fractured multiple left ri bs. He was taken to the [facility]. X-ray showed multiple rib fractures. He was given some hydrocodone and Nyquil and over the last 24-48 hours has had worsening confusion, encephalopathy. His was concerned that he was seeing unusual things including objects, confused. He was brought to the hospital. Dr. Stef Farah, his primary care physician, [facility] He has been seen in the past in 2004. He had a cough now for a period of time according to his family members, and daughter present, i t is relatively clear, but no fever or chills. His x-ray taken in the ER shows a left-sided density, a single view x-ray. This morning he is clearl y confused. From time to time he acts appropriately. PAST MEDICAL HISTORY: Hypertension, diabetes, CA of the bladder, chronic asthma. PAST SURGICAL HISTORY: Prostate surgery, angioplasty, bilateral carotid surgery, recent kidney stone s removed. MEDICATIONS FROM HOME: Includes potassium, metformin, Protonix, Ditropan 50, Singulair 10, Mobic 15. Victoza 1.8, hydrochlorothiazide 50 mg, Amaryl 4, Flonase, Symbicort 2 puffs b.i.d., nose spray, am lodipine 5. ALLERGIES: ASPIRIN and IBUPROFEN. SOCIAL HISTORY: No alcohol or tobacco. Construction related work. PHYSICAL EXAMINATION: GENERAL: He is awake, responsive, encephalopathic. VITAL SIGNS: Blood pressure of 174/75, sats are 92 on room air, respiration 20, temperature 97. CHEST: No wheezing or crackles. CARDIAC: Normal S1, S2. No gallops. ABDOMEN: Soft, no masses. LABORATORY AND X-RAY FINDINGS: Chest x-ray shows questionable left-sided infiltrate. His lab shows a white count 14,000, H&H 12 and 39, platelet count is normal. Chemistry shows a BUN and creatinine are 30 and 1.68. His drug screen was negative. His last echocardiogram done several months ago show ed that his EF was normal. IMPRESSION: 1. Metabolic encephalopathy. 2. Multiple rib fractures. 3. Possibly small left pleural effusion. 4. Diabetes. 5. Renal failure. PLAN: Avoid [place]. Minimize pain medication. Continue supportive care and PT. I will follow. This is a consultation note, 70 minutes, 50% spent in direct patient care.
[2017-12-21] MEDS: Liraglutide [Victoza 3-Pak] 1.2 MG SC SCH (12:30)
[2017-12-21] MEDS: cloNIDine 0.1 MG TAB PO PRN (12:39)
[2017-12-22] MEDS: Mometasone/Formoterol 120 PUFF INHALER INH SCH ×2 (06:57→19:08)
[2017-12-22] MEDS: Guaifenesin DM 100-10/5 ML UDCUP PO PRN (07:53)
[2017-12-22] MEDS: Amlodipine 5 MG TAB PO SCH (07:55)
[2017-12-22] MEDS: Potassium Chloride 20 MEQ TAB PO SCH (07:56)
[2017-12-22] MEDS: Calcium Carbonate 500 MG TAB PO SCH ×2 (07:56→20:10)
[2017-12-22] MEDS: Meloxicam 15 MG TAB PO SCH (07:56)
[2017-12-22] MEDS: Atorvastatin Calcium 10 MG TAB PO SCH (07:57)
[2017-12-22] MEDS: Famotidine 20 MG TAB PO SCH (07:57)
[2017-12-22] MEDS: Montelukast Sodium 10 mg Tablet PO SCH (07:57)
[2017-12-22] MEDS: cloNIDine 0.1 MG TAB PO PRN (07:57)
[2017-12-22] MEDS ORDERED: Amlodipine 10 MG TAB PO SCH (08:00)
[2017-12-22] MEDS: Liraglutide [Victoza 3-Pak] 1.2 MG SC SCH (08:02)
--- NOTE | 2017-12-22 08:08 | PRG ---
DATE OF SERVICE: 12/22/2017 Mr. Andrade is much more alert and awake, seems to be back to his old self. He slept good last night after getting a dose of Seroquel. PHYSICAL EXAMINATION: VITAL SIGNS: Blood pressure is slightly elevated at 187/91. He does inform me Dr. Escobar increased his amlodipine last week. Temperature 97.6, O2 sat 96%. PULMONARY: Bilateral breath sounds without wheezing. HEART: Reveals no murmur. NEUROLOGIC: He is alert and oriented x3, having pleasant conversation, he is not inappropriate all. IMPRESSION: 1. Mental status changes of unknown etiology, still believe this is related to probably narcotic jay jay n medicine and Nyquil. 2. Nasal congestion. 3. Hypertension. PLAN: 1. We will adjust his Norvasc today. 2. Continue observation.
--- NOTE | 2017-12-22 09:56 | RAD ---
CHEST 2 VIEWS: Date: 12/22/17 HISTORY: Pneumonia. COMPARISON: Chest radiograph dated 12/20/17. FINDINGS: There is improvement of the bibasilar air space opacities. Right upper lobe calcified granuloma is pr esent. No pneumothorax. There is blunting of both lateral costophrenic sulci. No acute osseous abnormality. IMPRESSION: Bibasilar air space opacities may reflect a combination of infection versus layering effusions. Follo w-up recommended. This is best seen on the lateral radiograph. POS: [facility]
--- NOTE | 2017-12-22 10:40 | PRG ---
DATE OF SERVICE: 12/22/2017 This morning he is much better, less short of breath, coughing some clear sputum. PHYSICAL EXAMINATION: VITAL SIGNS: Blood pressure elevated 187/91. Sats are 96% on room air, respirations 18, temperature 97.7, pulse 74. No longer confused. CHEST: Chest revealed decreased breath sounds without wheezing. CARDIAC: Normal S1, S2, no gallops. ABDOMEN: Soft. He has a chest x-ray taken today shows bibasilar atelectatic changes, left greater than right. IMPRESSION: 1. Bronchitis. 2. Atelectasis. 3. Possible pneumonia, though he is afebrile. PLAN: I want to avoid antibiotics, avoid any excessive medication which will cause confusion. His s odium was 131. We will recheck his lab tomorrow. If he appears stable, he can probably be discharge d.
[2017-12-23] MEDS: Lorazepam 2 MG/ML VIAL SLOW IVP PRN ×2 (00:44→18:16)
[2017-12-23] MEDS: Mometasone/Formoterol 120 PUFF INHALER INH SCH ×2 (06:09→17:57)
--- NOTE | 2017-12-23 07:43 | PRG ---
DATE OF SERVICE: 12/23/2017 HISTORY OF PRESENT ILLNESS: Mr. Andrade is arousable. His states that he became somewhat agitat ed last night, threatening to go home and kill himself. At this time, the patient is arousable, but he is very agitated, having some paranoid ideations think ing people are stealing money from him and this hospital status encouraging him to killing himself. Otherwise, no other medical complaints are noted. PHYSICAL EXAMINATION: VITAL SIGNS: Temperature 97.3, respirations 20, O2 sat is 96%, blood pressure 164/80. LUNGS: Clear. HEART: Reveals no murmur. Other examination could not be done due to the patient not being cooperative. IMPRESSION: A 77-year-old male appears to be having some aspects of dementia, has threatened suicide with paranoid behavior. PLAN: 1. We will get neurological consult. 2. [facility] consult. 3. Continue current treatment at this time. Obviously with this type of behavior discharge home at this time may be a little bit more difficult.
--- NOTE | 2017-12-23 11:14 | PRG ---
DATE OF SERVICE: 12/23/2017 SUBJECTIVE: This morning, he is confused compared to yesterday. OBJECTIVE: VITAL SIGNS: Sats are 98% on room air, temperature 97, blood pressure 160/80. CHEST: No wheezing or crackles. CARDIAC: Normal S1, S2, no gallops. ABDOMEN: Soft, no mass. X-RAY FINDINGS: His last chest x-ray looks stable. It shows atelectatic changes in the lung. IMPRESSION: 1. Metabolic encephalopathy. 2. Recent fall with fracture of left rib. PLAN: Continue observation, avoid any excessive medication. We will follow. JO ANND
[2017-12-23] MEDS: Meloxicam 15 MG TAB PO SCH (12:12)
[2017-12-23] MEDS: Atorvastatin Calcium 10 MG TAB PO SCH (12:12)
[2017-12-23] MEDS: Liraglutide [Victoza 3-Pak] 1.2 MG SC SCH (12:12)
[2017-12-23] MEDS: Famotidine 20 MG TAB PO SCH (12:12)
[2017-12-23] MEDS: Calcium Carbonate 500 MG TAB PO SCH ×2 (12:12→21:04)
[2017-12-23] MEDS: Potassium Chloride 20 MEQ TAB PO SCH (12:13)
[2017-12-23] MEDS: Montelukast Sodium 10 mg Tablet PO SCH (12:13)
[2017-12-23 12:16] LABS: Anion Gap 15 mmol/L (10-20); BUN (Urea Nitrogen) 28 mg/dL (8.4-25.7); Calc. Creatinine Clearance 54 mL/min (70-130); Calcium 9.4 mg/dL (7.8-10.44); Carbon Dioxide 23 mmol/L (23-31); Chloride 100 mmol/L (98-107); Estimated GFR-MDRD 46; Glucose 154 mg/dL (83-110); Potassium 4.5 mmol/L (3.5-5.1); Sodium 133 mmol/L (136-145)
--- NOTE | 2017-12-23 13:39 | PQF ---
CLINICAL DOCUMENTATION IMPROVEMENT CLARIFICATION FORM: ICD-10 Updated PLEASE DO AN ADDENDUM TO THE PROGRESS NOTE WITH ANY DOCUMENTATION UPDATES OR ADDITIONS AND CARRY THROUGH TO DC SUMMARY. THANK YOU. DATE: 12/23 ATTN: DR. VINCENT WHARTON Please exercise your independent, professional judgment in responding to the clarification form. Clinical indicators are provided on the bottom of this form for your review. Please check appropriate box(s) to clarify if the following diagnosis has been ruled in or ruled out: POSSIBLE PNEUMONIA [ ] Ruled in diagnosis [ ] Continue to treat [ ] Resolved [ ] Ruled out diagnosis [ ] Other diagnosis [ ] Unable to determine For continuity of documentation, please document condition throughout progress notes and discharge summary. Thank You. CLINICAL INDICATORS - SIGNS / SYMPTOMS / LABS ER PHYSICIAN DIAGNOSIS DOCUMENTATION 12/21: PNEUMONIA PULMONOLOGY PN 12/22: IMPRESSION: 1) BRONCHITIS; 3) POSSIBLE PNEUMONIA, THOUGH HE IS AFEBRILE WBC: 14.1 (ON ADMIT, 12/20) CXR 12/20: FINDINGS: ...PULMONARY VASCULATURE IS SLIGHTLY ENGORGED W/MILD PATCHY BIBASILAR INFILTRATES CXR 12/22: IMPRESSION: BIBASILAR AIR SPACE OPACITIES MAY REFLECT A COMBINATION OF INFECTION VS LAYERING EFFUSIONS RISK FACTORS: RECENT L SIDED RIB FRACTURES CHRONIC ASTHMA TREATMENTS: CXR (12/20 & ) RESPIRATORY TREATMENTS (DULERA INHALER BID) THANK YOU! Georgie (This form is maintained as a part of the permanent medical record) 2014 [employer]. All Rights Reserved Georgie Mcmahon RN, BSN [email or web address] Office: [phone] [facility]
--- NOTE | 2017-12-23 13:57 | PQF ---
CLINICAL DOCUMENTATION IMPROVEMENT CLARIFICATION FORM: ICD-10 Updated PLEASE DO AN ADDENDUM TO THE PROGRESS NOTE WITH ANY DOCUMENTATION UPDATES OR ADDITIONS AND CARRY THROUGH TO DC SUMMARY. THANK YOU. DATE: ATTN: DR. LIBBY GUIDRY Please exercise your independent, professional judgment in responding to the clarification form. Clinical indicators are provided on the bottom of this form for your review. Please check appropriate box(s): [ ] Acute Renal Failure (ARF) / Acute Kidney Injury (THOMAS) (Please specify associated condition, if applicable) [ ] Other Etiology or underlying conditions related to the diagnosis of ARF / THOMAS: [ ] Acute on Chronic Renal Failure please specify Stage of CKD (see below) [ ] CKD without ARF/THOMAS please specify Stage of CKD [ ] Other diagnosis [ ] Unable to determine National Kidney Foundation Guidelines for CKD Staging Stage I Kidney damage with normal or increased GFR GFR > 90 Stage II Kidney damage with mildly decreased GFR GFR 60-89 Stage III Kidney damage with moderately decreased GFR GFR 30-59 Stage IV Kidney damage with severely decreased GFR GFR 16-29 Stage V Kidney failure GFR<15 ESRD End Stage Renal Disease On dialysis For continuity of documentation, please document condition throughout progress notes and discharge summary. Thank You. CLINICAL INDICATORS - SIGNS / SYMPTOMS / LABS BUN: 30 CR: 1.68 GFR: 40 (12/20, ADMIT) 22 1.33 52 (12/21) 28 1.49 46 (12/23) RISK FACTORS: DM II HTN TREATMENT: SERIAL BASMET LABS THANK YOU! Georgie (This form is maintained as a part of the permanent medical record) 2014 [employer]. All Rights Reserved Georgie Mcmahon RN, BSN [email or web address] Office: [phone] [facility]
--- NOTE | 2017-12-23 23:57 | CON ---
DATE OF CONSULTATION: 12/23/2017 CONSULTING PHYSICIAN: Stef Farah M.D. IMPRESSION: Delirium secondary to narcotics and antihistamines followed by prolongation from lack of sleep last evening. PLAN: Seroquel 100 mg per night. HISTORY OF PRESENT ILLNESS: Mr. Andrade is a 77-year-old man who has history of congestive heart failu re and a chronic cough. He has also had a fracture of his ribs lately. He was taken hydrocodone for pain relief. He also was using NyQuil to help with cough suppression. His found him in the mi ddle of the night, he is sitting up in the den, acting inappropriately. He was brought to the hospit al for evaluation. A CT scan of the brain showed some age-related changes and small vessel ischemic disease and CBC, basic metabolic panel and urinalysis were unremarkable. He has been afebrile since admission. He seemed to be better yesterday according to the family, is acting relatively lucid last night. He did not sleep until very well. He was up at 1:00 in the morning and started getting agit ated. He had received Seroquel 25 mg prior to bed. He was given a dose of Ativan and did calm down. He still did not sleep very much last night. During the day today, he has been acting inappropriat vianney. He says he wants to kill himself. He thought he was bleeding and trying to question him. He c ould not get coherent answers. He tended to repeat himself and became a bit agitated. There is no p ast history of dementia. PAST MEDICAL HISTORY: Otherwise, as noted above. ALLERGIES: ASPIRIN, IBUPROFEN, METFORMIN. SOCIAL HISTORY: No tobacco or alcohol use. FAMILY HISTORY: Noncontributory. REVIEW OF SYSTEMS: Unobtainable. PHYSICAL EXAMINATION: GENERAL: He is a well-nourished elderly man lying in bed. HEENT: Unremarkable. NEUROLOGIC: He appears to be awake. His speech is fluent and clear, though inappropriate content, c ould not get him to follow any commands or really answer questions appropriately. There was no facia l asymmetry. He had symmetric strength in the extremities. No abnormal movements were seen. Gait w as not tested. SUMMARY: Clinical picture appears consistent with a delirium. Hopefully, we can settle it down with an antipsychotic and improved sleep patterns.
[2017-12-24] MEDS: cloNIDine 0.1 MG TAB PO PRN (06:52)
[2017-12-24] MEDS: Mometasone/Formoterol 120 PUFF INHALER INH SCH ×2 (07:11→18:48)
[2017-12-24] MEDS: Potassium Chloride 20 MEQ TAB PO SCH (07:53)
[2017-12-24] MEDS: Atorvastatin Calcium 10 MG TAB PO SCH (07:53)
[2017-12-24] MEDS: Calcium Carbonate 500 MG TAB PO SCH ×2 (07:53→19:22)
[2017-12-24] MEDS: Famotidine 20 MG TAB PO SCH (07:53)
[2017-12-24] MEDS: Meloxicam 15 MG TAB PO SCH (07:53)
[2017-12-24] MEDS: Liraglutide [Victoza 3-Pak] 1.2 MG SC SCH (07:54)
--- NOTE | 2017-12-24 10:17 | PRG ---
DATE OF SERVICE: 12/24/2017 This morning he is still confused, but better. PHYSICAL EXAMINATION: VITAL SIGNS: Sats are 93 on 2 liters, respiration 22, temperature 97, blood pressure 119/98. CHEST: Chest reveals decreased breath sounds, no wheezing. CARDIAC: Normal S1, S2, no gallops. ABDOMEN: Soft. LABORATORY: Sodium 133, slightly better. Creatinine 1.49. IMPRESSION: 1. Respiratory failure. 2. Chronic obstructive pulmonary disease. 3. Atelectasis. 4. Encephalopathy. PLAN: I may add antibiotic, a low dose prednisone to present regime. Hopefully, he can discharge home in the next 24-48 hours. Follow up in the office in a month.
[2017-12-24] MEDS: Lorazepam 2 MG/ML VIAL SLOW IVP PRN (16:43)
[2017-12-24] MEDS: Doxycycline 100 MG CAP PO SCH (19:21)
[2017-12-25] MEDS: Mometasone/Formoterol 120 PUFF INHALER INH SCH ×2 (07:49→18:28)
[2017-12-25] MEDS ORDERED: predniSONE 20 MG TAB PO SCH (08:00)
[2017-12-25] MEDS: Meloxicam 15 MG TAB PO SCH (08:17)
[2017-12-25] MEDS: Potassium Chloride 20 MEQ TAB PO SCH (08:17)
[2017-12-25] MEDS: Doxycycline 100 MG CAP PO SCH ×2 (08:17→20:13)
[2017-12-25] MEDS: Famotidine 20 MG TAB PO SCH (08:18)
[2017-12-25] MEDS: Atorvastatin Calcium 10 MG TAB PO SCH (08:18)
[2017-12-25] MEDS: Calcium Carbonate 500 MG TAB PO SCH ×3 (08:19→20:18)
[2017-12-25] MEDS: Liraglutide [Victoza 3-Pak] 1.2 MG SC SCH ×2 (08:27→12:14)
[2017-12-25] MEDS ORDERED: Lorazepam 2 MG/ML VIAL SLOW IVP SCH (11:30)
[2017-12-25 12:16] LABS: #Eosinphils 0.8 thou/uL (0.0-0.7); #Lymphocytes 1.1 thou/uL (1.20-3.40); #Monocytes 0.9 thou/uL (0.11-0.59); #Neutrophils 7.7 thou/uL (1.40-6.50); %Basophils 0.3 % (0.0-1.0); %Eosinophils 7.6 % (0.0-10.0); %Lymphocytes 10.2 % (21.0-51.0); %Monocytes 8.7 % (0.0-10.0); %Neutrophils 73.1 % (42.0-75.0); Hemoglobin 13.6 g/dL (14.0-18.0); Mean Corpuscular HGB CONC 31.4 g/dL (32.0-36.0); Mean Corpuscular Hemoglobin 27.8 pg (27.0-31.0); Mean Corpuscular Volume 88.6 fL (78.0-98.0); Platelet Count 338 thou/uL (130-400); RBC Distribution Width 14.3 % (11.5-14.5); Red Blood Cell (RBC) Count 4.91 mill/uL (4.70-6.10); White Blood Cell (WBC) Count 10.6 thou/uL (4.8-10.8)
[2017-12-25 12:31] LABS: ALT (SGPT) 12 U/L (8-55); AST (SGOT) 10 U/L (5-34); Albumin 3.3 g/dL (3.4-4.8); Alkaline Phosphatase 101 U/L (40-150); Anion Gap 11 mmol/L (10-20); BUN (Urea Nitrogen) 21 mg/dL (8.4-25.7); Bilirubin, Total 0.5 mg/dL (0.2-1.2); Calc. Creatinine Clearance 53 mL/min (70-130); Calcium 9.2 mg/dL (7.8-10.44); Carbon Dioxide 22 mmol/L (23-31); Chloride 104 mmol/L (98-107); Estimated GFR-MDRD 45; Globulin 2.9 g/dL (2.4-3.5); Glucose 138 mg/dL (83-110); Potassium 4.2 mmol/L (3.5-5.1); Protein, Total 6.2 g/dL (5.8-8.1); Sodium 133 mmol/L (136-145)
[2017-12-25] MEDS: Lorazepam 2 MG/ML VIAL SLOW IVP PRN ×2 (12:40→21:38)
[2017-12-25 13:02] LABS: Folate (Folic Acid) 9.2 ng/mL (7.0-31.4)
[2017-12-25] MEDS ORDERED: Gadobenate Dimeglumine 529 MG/1 ML (20ML VIAL) ONE (13:37)
--- NOTE | 2017-12-25 13:43 | RAD ---
CHEST 1 VIEW: HISTORY: Cough. COMPARISON: 12/22/2017. FINDINGS: Cardiac silhouette is magnified by projection. The pulmonary vasculature is unremarkable. Infiltrat e at the left base is similar in appearance to the prior study. Subtle patchy infiltration at the ri ght base has increased slightly. Upper lobes are clear. Mediastinum is midline with aortic calcific ation. IMPRESSION: Bibasilar infiltrates, slightly worsened on the right compared to the previous exam. Clinical correl ation regarding other signs and symptoms of bibasilar pneumonitis is required. POS: [facility]
--- NOTE | 2017-12-25 14:07 | PRG ---
DATE OF SERVICE: 12/25/2017 SUBJECTIVE: The patient is doing much worse. He is more confused, more combative, continues to repeat the same word over and over. He is awake and alert. He is aware of where he is, but not of time or person. He seems more confused and incoherent with his speech. He is not answering questions appropriately. and daughter state that this started about last day, seems to have worsened since initiating the Seroquel therapy. Family is concerned about this being a result of a recent fall where he fractured his ribs. He continues to have his cough, some better. He does not appear to be short of breath and he is not keeping the oxygen on most of the time. PHYSICAL EXAMINATION: VITAL SIGNS: Temperature 98.6, pulse of 79, respirations 18, pulse ox is 91%-93 % on 2 liters nasal cannula, blood pressure 166/73. GENERAL: He is awake and alert, eyes are open. He does follow. Has good eye contact, but continues to be confused, not answering questions appropriately. Repeats the same thing over with stating "I can still see you" and "I do not want to be combative." HEENT: Mucosa is dry. NECK: Supple. HEART: Regular rate and rhythm. LUNGS: With rhonchi throughout. No wheezes or rales. EXTREMITIES: No edema. LABORATORY DATA: Pending. Last labs were done on 12/23/2017. Accu-Cheks have been 171, 150, 143, 136. Last chest x-ray on 12/22/2017 revealed bibasilar airspace opacities, possible infection versus effusion. ASSESSMENT AND PLAN: This is a 77-year-old gentleman admitted with acute mental status change, thought to be due to a mixture of hydrocodone and Nyquil on his admission 12/21/2017. He has been treated for a possible pneumonia as well with Rocephin initially and now on doxycycline as per Dr. Delong. His mental status continued to worsen and more acutely in spite of being on the Seroquel as well as time to wash out the hydrocodone and Nyquil. 1. Mental status change, worsening. We will check MRI of his brain to rule out any lesions. A CT of the brain without contrast was normal on admission. 2. Cough, abnormal lung exam. We will recheck chest x-ray and continue antibiotics as per Dr. Delong. 3. Encephalopathy. We will discontinue the Seroquel as he seems to have worsened since that initiation. I will also check further labs for any metabolic etiology of his encephalopathy. We will check kidney, renal function. We will check ammonia level. We will check vitamin B12 and folic acid level. Neurology is not available over the weekend for re-evaluation. 4. Type 2 diabetes. We will continue his medicine and insulin sliding scale. We will check urinalysis as well. JUAN
--- NOTE | 2017-12-25 15:04 | PRG ---
DATE OF SERVICE: 12/25/2017 SUBJECTIVE: Mr. Andrade is confused, somewhat inappropriate in his speech. OBJECTIVE: VITAL SIGNS: On exam, his temperature is 98.6, pulse 79, respirations 18, O2 sat 91% on 2 liters. HEENT: Unremarkable. NECK: No JVD. CHEST: Clear without wheezing. CARDIAC: S1 and S2 regular. ABDOMEN: Soft. EXTREMITIES: No edema. LABORATORY DATA: White blood cell count 10.6, hematocrit 43.5, platelet count 338,000. Chemistry is normal except for sodium of 133 and a creatinine of 1.5. His ammonia level was less than 12. ASSESSMENT: 1. Encephalopathy -- etiology unclear. 2. Status post respiratory failure. 3. Chronic obstructive pulmonary disease. RECOMMENDATION: I would recommend stopping his steroids as some elderly patients do not do well with that. Continue the nebulization treatments. Minimize any unnecessary medication as much as erinn clark
[2017-12-25 15:07] LABS: Bilirubin Negative (Negative); Blood, Urine Negative (Negative); Clarity CLOUDY (Clear); Glucose, Urine (Dipstick) Negative (Negative); Leukocyte Negative (Negative); Nitrite Negative (Negative); Protein, Urine (Dipstick) Negative (Neg-Trace); Specific Gravity, Urine 1.014 (1.002-1.036); Urobilinogen 0.2 mg/dL (0.2-1.0); pH, Urine 7.5 (5.0-9.0)
--- NOTE | 2017-12-25 17:38 | MRI ---
BRAIN MRI WITH AND WITHOUT CONTRAST 12/25/17 COMPARISON: None. HISTORY: Mental status changes, altered mental status. TECHNIQUE: Multiplanar and multisequence MRI imaging of the brain is provided with and without contrast. FINDINGS: The study is markedly limited secondary to persistent patient motion artifact limiting all the provid ed pulse sequences. On the diffusion weighted imaging, there is a curvilinear area of abnormal increased signal intensity within the posteromedial left parieto-occipital region, best seen at the axial level of the body of the right lateral ventricle. This abnormality measures 2 cm in transverse dimension and is hyperinten se on the diffusion weighted imaging along is peripheral rim while it is of decreased signal intensit y on diffusion weighted imaging centrally. The area of hyperintensity on diffusion weighted imaging d emonstrates linear enhancement on postcontrast imaging. The axial T2 weighted imaging is essentially nondiagnostic, with evidence of scattered mucosal thickening involving ethmoid air cells, maxillary s inuses, and sphenoid sinuses. Arterial flow voids appear grossly patent but are poorly assessed. Joseph on limited FLAIR imaging demonstrates extensive periventricular deep and subcortical white matter T2 and FLAIR hyperintensity suggesting severe small vessel disease. There is evidence of increased FLAIR signal intensity in the above described abnormality within the left parieto-occipital region. Marked ly limited gradient echo imaging grossly unremarkable. IMPRESSION: Markedly limited study on the basis of motion artifact. There is an area of abnormality within the pa rieto-occipital lobe on the left as detailed above. This is felt to most likely represent a subacute infarction. However, followup imaging in 4-6 weeks with MRI with and without contrast is advised give n the nonspecific nature of this abnormality and the marked limitations of this exam. POS: PREET
[2017-12-25] MEDS: cloNIDine 0.1 MG TAB PO PRN (20:15)
[2017-12-26] MEDS: Atorvastatin Calcium 10 MG TAB PO SCH ×2 (06:34→08:28)
[2017-12-26] MEDS: Famotidine 20 MG TAB PO SCH ×2 (06:34→08:28)
[2017-12-26] MEDS: Potassium Chloride 20 MEQ TAB PO SCH ×2 (06:34→08:28)
[2017-12-26] MEDS: Meloxicam 15 MG TAB PO SCH ×2 (06:34→08:28)
[2017-12-26] MEDS: Doxycycline 100 MG CAP PO SCH ×3 (06:35→21:08)
[2017-12-26] MEDS: Mometasone/Formoterol 120 PUFF INHALER INH SCH ×2 (06:37→18:04)
[2017-12-26] MEDS: cloNIDine 0.1 MG TAB PO PRN ×3 (07:57→21:10)
[2017-12-26] MEDS: Liraglutide [Victoza 3-Pak] 1.2 MG SC SCH (08:28)
[2017-12-26] MEDS: Calcium Carbonate 500 MG TAB PO SCH ×2 (08:28→21:32)
--- NOTE | 2017-12-26 10:30 | PRG ---
DATE OF SERVICE: 12/26/2017 SUBJECTIVE: Patient is clearing in his mentation. He is answering questions more appropriately. H e denies pain. Denies shortness of breath. Continues to have a cough. Family states that he still has episodes where he is confused, but overall doing much better. He has not been out of bed much. He does get hypoxic at times and pulls the oxygen off. OBJECTIVE: VITAL SIGNS: Temperature 98.7, pulse is 73, respirations 18, blood pressure last night was 178/95, p ulse ox 90%-92% on room air. GENERAL: He is awake and alert. He is cooperative, answers questions appropriately, does seem confu sed about the situation. HEART: Regular rate and rhythm. LUNGS: With rhonchi bilaterally. ABDOMEN: Soft. EXTREMITIES: No edema. NEUROLOGIC: Cranial nerves II-XII grossly intact. Strength is 5/5 in upper and lower extremities. LABORATORY AND IMAGING DATA: Chest x-ray from yesterday revealed bibasilar infiltrate, worse on the right compared to prior exam. A brain MRI revealed subacute infarction in the parietal occipital lob e on the left, but limited study due to motion artifact. The labs reviewed with normal ammonia, stab le white blood cell count, GFR of 45. Ammonia level was normal. B12, folic acid levels are normal. TSH is stable. Accu-Cheks of 133, 128, 121. ASSESSMENT AND PLAN: This is a 77-year-old gentleman with type 2 diabetes and hypertension, admitted for mental status change and pneumonia. 1. Mental status changes, improved with discontinuing Seroquel and steroids. I will continue to mon itor closely. 2. MRI revealing a subacute cerebrovascular accident, possibly contributing to overall dementia, but likely not causing his acute delirium. 3. Pneumonia. We will continue oral doxycycline as per pulmonary. 4. Disposition discussed with and patient about rehab evaluation due to his increased weakness.
--- NOTE | 2017-12-26 10:37 | PRG ---
DATE OF SERVICE: 12/26/2017. SUBJECTIVE: The patient's mental status is much better today than it was yesterday. I wonder if thi s is due to the discontinuation of steroids. PHYSICAL EXAMINATION: VITAL SIGNS: His temperature is 98.4, pulse 78, respirations 16, O2 sat 90% on room air. HEENT: Unremarkable. LUNGS: Clear. CARDIAC: S1 and S2 regular. ABDOMEN: Soft. EXTREMITIES: No edema. ASSESSMENT: 1. Encephalopathy, which seems to be better with discontinuation of steroids. 2. Status post respiratory failure. 3. Chronic obstructive pulmonary disease. PLAN: Continue observation and conservative approach. Hopefully sensorium will continue to improve and he can go home soon.
[2017-12-26] MEDS: Valproate Sodium 250 MG in Sodium Chloride 0.9% 100 ML IVPB SCH (21:08)
--- NOTE | 2017-12-26 22:20 | HP ---
CHIEF COMPLAINT: Altered mental status. HISTORY OF PRESENT ILLNESS: I was asked to see the patient because of continuing altered mental stat us and also MRI findings. Patient's and grandson gave him for further information. Patient was getting ready to go to [place] on Wednesday morning, but late Wednesday night, reports patient started to get quite agitated and started to behave oddly, where he kept repeating the same thing over and o vadim again and they called EMS and patient was brought here. Initially, it was thought that this was due to narcotics and he has been taking excessive narcotics mainly hydrocodone for his pain. He rece ntly underwent a sinus surgery. Patient subsequently has been started on Seroquel low-dose initially and high-dose later and Seroquel was stopped. He was also receiving mild antibiotics plus steroids for his respiratory dysfunction and this was also stopped. Patient continues to be agitated. He has repetitive thought process more so at night time per . On and Wednesday, patient's family also noted muscle jerking and shaking of the whole body. Today, he has been moving his right hand r epetitively and has been jerking also reaching for things with his right hand and he was more like hi mself this morning, but then as the day progressed, he got worse. LABORATORY REPORTS: White count 10.6, hemoglobin 13.6, hematocrit 43.5, platelets 338. Chemistry: Sodium 133, potassium 4.2, chloride 104, bicarbonate 22, anion gap 11, BUN 21, creatinine 1.51, gluco se 138, calcium 9.2. Total bilirubin 0.5, AST 10, ALT 12, alkaline phosphatase 101. Ammonia less th an 12, vitamin B12 of 3.03, and folate 9.20 and TSH was 0.40 on the initial visit. MRI scan of the b [facility] was completed today and MRI was limited secondary to persistent patient's motion artifact. Ther e is curvilinear area of abnormal increased signal in the posteromedial left parietal occipital regio n best seen in the axial level of the body of the right lateral ventricle. This abnormality measures 2 cm in transverse dimension and is hyperintense on diffusion weighted imaging. The area of hyperin tensity on diffusion weighted imaging shows linear enhancement on postcontrast imaging. He has small vessel disease and this area is thought to be most likely a subacute infarction. Chest x-ray shows bibasilar infiltrates, slightly worse on the right compared to previous exam. Clin ical correlation regarding other signs and symptoms of bibasilar pneumonitis is required. CURRENT MEDICATIONS: Patient is on nebulizers, including albuterol and he takes atorvastatin. He is on clonidine and doxycycline and glucagon as needed, and he is on insulin sliding scale, and his gail azepam as well as quetiapine were all discontinued. PHYSICAL EXAMINATION: VITAL SIGNS: Temperature 97.4, O2 sats 90, respiratory rate 16, pulse 81, blood pressure 187/83. CHEST: Clear vesicular breathing. CARDIOVASCULAR: S1, S2 heard, no murmurs. NEUROLOGIC: Higher intellectual functions, patient does not want to follow any commands, seems to be quite agitated at times, looks agitated and has intermittent myoclonic jerking in the right upper ex tremity and he is also exhibiting some picking behavior where he is trying to pick something from the air. He does move all 4 extremities equally and he is talking about burning up something and keeps saying "I am that is what I keep telling everyone." Cranial nerves: Pupils are reactive bilate rally. Extraocular movements are intact. No facial weakness noted. Motor exam, he seems to have in tact strength, but does not follow any commands to perform a detailed motor examination. Sensory, ce rebellar difficult to assess in this patient. IMPRESSION: Patient is a 77-year-old man who was admitted on 12/21/2017. I have also reviewed Dr. Grace acuña's detailed consultation report. I was asked to see this patient due to his agitation and on r esult altered mental status. His laboratory workup so far shows abnormal chest x-ray, low sodium ini tially on the day of admission and his recent sodium levels are still at 133 and he did have elevated white count, which has normalized at this time. His physical examination shows mostly agitation and behavior consistent with repetitive thought process and psychosis and delirium rather than seizure d isorder. At this time, since he did not respond well to Seroquel, I would like to start him on Depak ote to help with agitation and it is a good mood stabilizer and slightly elderly patients as well. I will request EEG in the morning. When patient is more stable, please obtain CT angiogram of head an d neck, particularly with his creatinine being 1.5 at this time, Once his creatinine normalizes, ple ase obtain CT angiogram of the head and neck to study his vasculature and make sure, we are not deali ng with vasoocclusive disease or vasculitis. Please call Dr. Galeana for further followup. I will b e out from my on-call duties from tomorrow.
[2017-12-26] MEDS: Lorazepam 2 MG/ML VIAL SLOW IVP PRN (22:21)
[2017-12-27 05:26] LABS: #Eosinphils 0.7 thou/uL (0.0-0.7); #Lymphocytes 0.9 thou/uL (1.20-3.40); #Monocytes 1.2 thou/uL (0.11-0.59); #Neutrophils 13.1 thou/uL (1.40-6.50); %Basophils 0.3 % (0.0-1.0); %Eosinophils 4.1 % (0.0-10.0); %Lymphocytes 5.6 % (21.0-51.0); %Monocytes 7.3 % (0.0-10.0); %Neutrophils 82.6 % (42.0-75.0); Hemoglobin 13.4 g/dL (14.0-18.0); Mean Corpuscular HGB CONC 31.4 g/dL (32.0-36.0); Mean Corpuscular Hemoglobin 27.7 pg (27.0-31.0); Mean Platelet Volume 7.2 fL (7.4-10.4); Platelet Count 400 thou/uL (130-400); RBC Distribution Width 14.4 % (11.5-14.5); Red Blood Cell (RBC) Count 4.83 mill/uL (4.70-6.10); White Blood Cell (WBC) Count 15.8 thou/uL (4.8-10.8)
[2017-12-27 05:41] LABS: ALT (SGPT) 11 U/L (8-55); AST (SGOT) 16 U/L (5-34); Albumin 3.6 g/dL (3.4-4.8); Alkaline Phosphatase 112 U/L (40-150); Anion Gap 15 mmol/L (10-20); BUN (Urea Nitrogen) 21 mg/dL (8.4-25.7); Bilirubin, Total 0.5 mg/dL (0.2-1.2); Calc. Creatinine Clearance 56 mL/min (70-130); Carbon Dioxide 19 mmol/L (23-31); Chloride 104 mmol/L (98-107); Estimated GFR-MDRD 48; Globulin 3.2 g/dL (2.4-3.5); Glucose 152 mg/dL (83-110); Potassium 4.2 mmol/L (3.5-5.1); Protein, Total 6.8 g/dL (5.8-8.1); Sodium 134 mmol/L (136-145)
[2017-12-27] MEDS: Mometasone/Formoterol 120 PUFF INHALER INH SCH ×2 (06:35→19:22)
[2017-12-27] MEDS: Doxycycline 100 MG CAP PO SCH (08:11)
[2017-12-27] MEDS: Famotidine 20 MG TAB PO SCH (08:11)
[2017-12-27] MEDS: Potassium Chloride 20 MEQ TAB PO SCH (08:11)
[2017-12-27] MEDS: Meloxicam 15 MG TAB PO SCH (08:11)
--- NOTE | 2017-12-27 08:11 | PRG ---
DATE OF SERVICE: 12/27/2017 SUBJECTIVE: Mr. Andrade is still very confused, agitated, repetitive in words. PHYSICAL EXAMINATION: VITAL SIGNS: His blood pressure 188/92, O2 sats 93%, temperature 98.0. GENERAL: He is confused, does appear to be disoriented, but is repetitive in words, does not show an y higher cognitive level about understanding this disease process. LUNGS: Reveal bilateral breath sounds without wheezes. HEART: Reveals a regular rate and rhythm without murmurs, gallops, no rubs. LABORATORY: His white blood count is 15.8, hemoglobin 13.4, hematocrit 42.5, sodium 134, potassium 4 .2, chloride 104, CO2 of 19, BUN 21, creatinine 1.43. Most recent chest x-ray shows some bibasilar infiltrates, somewhat worsening. He is on doxycycline. MRI of the brain has artifact motion issues. There appears to be a parietal occipital infarct that appears to be subacute. IMPRESSION: 1. This is a 77-year-old male, still confused, acting inappropriately. 2. Possible new cerebrovascular accident. There appears to be some severe small vessel disease asso ciated with his stroke, but it cannot be safely studied at this time due to creatinine elevations and patient cooperation. PLAN: 1. I have had extensive discussion with the patient's family. Medications have been stopped, which were initially thought to improve him such as his steroids and Seroquel. He has now been placed on D epakote as well as having a possible EEG done today. 2. After this extensive discussion, the patient's family seems somewhat amenable to possible transfe r medical care at a different institution. This could be necessitated by the fact that he needs more intensive evaluation supported by other medical teams such as Psychiatry. The patient's family has requested Cardiology consult to check his heart. We will abide by that.
[2017-12-27] MEDS: Liraglutide [Victoza 3-Pak] 1.2 MG SC SCH (08:12)
[2017-12-27] MEDS: Atorvastatin Calcium 10 MG TAB PO SCH (08:12)
[2017-12-27] MEDS: Calcium Carbonate 500 MG TAB PO SCH (08:12)
[2017-12-27] MEDS: Lorazepam 2 MG/ML VIAL SLOW IVP PRN (08:41)
[2017-12-27 08:50] VITALS: BP 145/72; TEMP 98.5
--- NOTE | 2017-12-27 09:42 | PRG ---
DATE OF SERVICE: 12/27/2017 The patient is very confused, agitated and frankly psychotic. PHYSICAL EXAMINATION: VITAL SIGNS: Temperature 98.5, pulse 72, respirations 18, O2 sat 93%, blood pressure 145/72. GENERAL: He is combative when trying to examine him. He is not oriented, but is alert. HEENT: Unremarkable. NECK: No JVD. CHEST: Clear. CARDIAC: S1 and S2 regular. ABDOMEN: Soft. EXTREMITIES: No edema. LABORATORY DATA: White blood cell count 15.8, hematocrit 42, platelet count 400. Sodium 134, potass ium 4.2, chloride 104, CO2 of 19, BUN 21, creatinine 1.4, glucose 152. ASSESSMENT: 1. Psychosis - etiology unclear. 2. Status post respiratory failure. 3. Chronic obstructive pulmonary disease. PLAN: Psychosis remains despite discontinuation of provoking agent such as steroids. RECOMMENDATIONS: I think he needs psychiatric intervention whether that be here or transfer to [facility] facility.
--- NOTE | 2017-12-27 11:29 | ADD-PRG ---
ADDENDUM: DATE OF SERVICE: 12/27/2017 PLAN: I have had extensive discussion with the patient's family. They seem amenable to possible tra nsfer from the medical care to a different institution. This is necessary by the fact that he needs a higher level neurological care that we are unable to provide him for now. In addition, I feel like he needs some level psychiatric care that we are not able to provide him at all. Other factors that could be playing a role in this such as Cardiology, which I highly doubt he need, but the family has requested a Cardiology consult. He does have some bronchitis at this time. He would benefit from [facility], which he is currently having right now. Otherwise, the main reason to tr ansfer him would be significant increase in level of neurologic care that in my opinion also require some psychiatric intervention.
[2017-12-27] MEDS ORDERED: Ziprasidone 20 MG VIAL IM PRN (12:40)
[2017-12-27] MEDS: Valproate Sodium 250 MG in Sodium Chloride 0.9% 100 ML IVPB SCH (13:36)
[2017-12-27] MEDS ORDERED: Amlodipine 5 MG TAB PO SCH (15:45)
[2017-12-27] MEDS ORDERED: Sterile Water 10 ML VIAL FS PRN (15:56)
--- NOTE | 2017-12-27 22:30 | CON ---
DATE OF CONSULTATION: 12/27/2017 PRIMARY CARE PHYSICIAN: Dr. Stef Farah. PRIMARY LATHE MECHANIC: Dr. Escobar. REFERRING DOCTOR: Dr. Stef Farah. REASON FOR CARDIOLOGY CONSULTATION: History of ASCAD. HISTORY OF PRESENT ILLNESS: Mr. Andrade is 77-year-old male with a significant history of c hronic diastolic heart failure, peripheral artery disease with history of stent placement, diabetes t ype 2, status post bilateral carotid endarterectomy and hypertension. According to family member, esther shoemaker was doing well until Wednesday night on 12/19/2017, that night, patient's realized that he di d not come to the bed and the same time, he was repeating the same thing again and again, so the vignesh ent's called the EMS and the patient was transferred to [facility] for furt her evaluation and treatment. The CT scan brain shows normal; however, a CT scan of the brain on showing a normal; however, brain MRI of the brain on 12/25 shows subacute cerebrovascular accident to the parieto-occipital lobe on the left side. Patient's steroid and Seroquel were discontinued du e to worsening of the delirium. Since those medicines were discontinued, patient's condition mental status is slowly improved per patient's family members' report. Cardiology service consult was reque sted by patient's family member. Patient's family member has noticed the patient was demonstrating t apping his chest several times without a word. Today during the initial Cardiology consult assessmen t, the patient knows his family members name the patient's primary optical element coater name; however, still patient most likely the patient is confused; however, he could tell the patient did not have any ches t pain, discomfort, palpitation or any other cardiac complaints. At this moment, patient's troponin was negative and no shortness of breath or edema to the bilateral lower extremities. Patient has echocardiogram was done in 07/2017, which shows EF 55-60% with trace tricuspid regurgitat ion. The patient had a stress test was done in 08/2017, which shows normal. He is an ex-smoker whic h he quit in 1996. PAST MEDICAL HISTORY: Diabetes type 2, chronic diastolic congestive heart failure, peripheral artery disease, bilateral carotid artery disease, asthma, hypertension, osteoarthritis, prostatic cancer, c oronary artery disease with multiple angioplasties in the past. PAST SURGICAL HISTORY: Multiple angioplasties and stent placement to his coronary arteries until abo ut 10 years ago, peripheral artery vascular disease with stent placement to his bilateral lower extre mities, bilateral carotid endarterectomy in 2017, prostatectomy and bilateral cataract surgery in 201 7 and foot surgeries. FAMILY HISTORY: There are no significant coronary artery disease or related history in his families. SOCIAL HISTORY: He is , living with his . He has a children. They live well. Patient i s an ex-smoker, quitting in the 1996 after patient has a prostate cancer. He drinks socially. The p atient denies illicit drug. REVIEW OF SYSTEMS: Prior to this admission, this event, patient's 12-point review of systems negativ e, unless otherwise mentioned in the HPI. PHYSICAL EXAMINATION: VITAL SIGNS: Blood pressure 145/72, pulse is 72, respiratory rate 18, O2 sat 93% on room air, temper ature 98.5. GENERAL: He is alert, not in acute distress. The patient is mostly confused. HEAD: Normocephalic, atraumatic. EYES: Extraocular muscle movement intact. ENT: Oral and nasal mucosa are moist without lesion. NECK: Supple, normal range of motion. No JVP. LUNGS: Clear to auscultation bilaterally. CARDIOVASCULAR: Regular rate rhythm and normal S1, S2 noted. There are no S3, S4. No murmur, hives , thrill noted. Unable to auscultate the carotid pulses due to mild agitation and keep talking. ABDOMEN: Soft, nontender, bowel sounds are present. MUSCULOSKELETAL: Patient is able to move all extremities at this moment. SKIN: Warm and dry. No lesion or bruise noted. NEUROLOGIC: Patient is alert, oriented to self, but not situation, time, and place. LABORATORY DATA: WBC 15.8, hemoglobin 13.4, hematocrit 42.5, platelet 400. Sodium 134, potassium 4. 2, BUN 21, creatinine 1.43, glucose 152, AST 16, ALT 11, TSH 0.4019, vitamin B12 303, BNP is 76.3 and glucose has been 120-150. ASSESSMENT AND PLAN: 1. Atypical chest discomfort. Patient's vital signs are stable. Patient denied any cardiac complai nts at this moment, we would like to continue to monitor. Strongly, we recommend the patient's famil y member to notify to medical staff if they noticed any mental changes or patient started to complain of the chest discomfort, any complaint of cardiac complaints. 2. History of chronic diastolic heart failure. Patient is stable with room air. No edema in the lo wer extremities. We would like to continue to monitor at this moment. 3. Hypertension. I would like to start amlodipine 5 mg once a day at this moment which was 10 mg on ce a day at home. 4. Hyperlipidemia. Patient has been on Lipitor 10 mg once a day. 5. History of chronic obstructive pulmonary disease. Patient's status is stable at this moment. Mario proctor, the Pulmonary is following this patient. 6. History of peripheral artery disease with a stent placement and bilateral carotid endarterectomie s. At this moment, the patient's condition is stable. At this moment, we would like to continue to monitor. 7. Mental status change. The neurologist is already following this patient and patient has an EEG t scottie and that result is pending at this moment. Thank you for allowing the Cardiology service to participate in the care of this patient. We will fo llow along with the patient care team and make further recommendations as appropriate and from tomorr ow, Dr. Escobar is going to be his primary optical element coater.
--- NOTE | 2017-12-28 07:11 | ADD-CON ---
ADDENDUM DATE OF ADMISSION: 12/20/2017 DATE OF CONSULTATION: 12/27/2017 INDICATION FOR CONSULTATION: A 77-year-old gentleman with a history of congestive heart failure in t he past, also has peripheral vascular disease and hypertension. He was admitted due to mental status changes. He did have recent with coughing. He also was given some medications with Nyquil an d hydrocodone and has had worsening of his confusion with encephalopathy. He was admitted to the [facility]. He continues to have hallucinations and being confused and continues to cough and I believe t his is planned for him to be taken down to [place] for further evaluation for his mental status probl ems, hallucinations and mental status changes. He did have a history of congestive heart failure in the past, was followed by Dr. Escobar. At this time, his congestive heart failure, appears to be unde r good control. His chest x-ray did show some mild congestion, but he appears to be stable otherwise . He is having some productive sputum from coughing, but otherwise does not appear to be short of br eath. Please refer the notes already dictated by the nurse practitioner. I would agree with her ass essment and plan for his past medical history. He does have a history of peripheral vascular disease as well as some history of congestive heart failure. He has chronic asthma, hypertension, diabetes. He had cancer of the bladder. He has had bilateral carotid artery endarterectomies. He has had a removal of kidney stones. He has had lower extremity angioplasties, prostate surgery. For list of his medications, allergies, social history, review of systems, please refer to the notes dictated by the nurse practitioner. PHYSICAL EXAMINATION: GENERAL: Reveals an elderly gentleman, very confused, almost combative, but does not appear to be in any acute distress at this time. VITAL SIGNS: Blood pressure is 145/72, heart rate is 72 and is regular at this time, respiratory rat e is about 18 unlabored, O2 saturation is 93%. He is afebrile. HEENT: Shows head to be normocephalic, atraumatic. He has well healed surgical incision after carot id endarterectomies. I did not hear any bruits. CHEST: From what I can ascertain appears to be clear at this time. CARDIOVASCULAR: Reveals a regular rate and rhythm. There were no gross murmurs. ABDOMEN: Soft and nontender. EXTREMITIES: Showed no clubbing, cyanosis or edema. He has pedal pulses present. NEUROLOGIC: As noted above. The patient is very confused, almost combative. IMPRESSION: 1. History of congestive heart failure, which appears to be stable at this time, we would continue p resent medications. 2. Mental status changes of uncertain etiology. Further evaluation is intended to be done in [facility]. 3. Hypercholesterolemia. This is stable at this time. We will continue his medicines. 4. History of diabetes. This will be dealt with by the primary care service. At this time from a c ardiac standpoint, he appears to be stable for transfer. I will be more than happy to see the patien t when he returns or he will be followed in the office by Dr. Escobar as he has followed him for sever al years.
[2017-12-28] MEDS ORDERED: Amlodipine 5 MG TAB PO SCH (09:00)
--- NOTE | 2017-12-28 09:13 | EEG ---
Referring Physician: Arnold BRYANT EEG # [id number] TEST TYPE: ROUTINE PORTABLE INPATIENT REPORT: AN EEG USING THE INTERNATIONAL TEN-TWENTY SYSTEM OF ELECTRODE PLACEMENT WAS PERFORMED. The best waking background is a 7-8 hertz Alpha frequency. There is prominent EMG artifact throughout the study. Photic stimulation was unremarkable. No epileptiform features were seen. IMPRESSION: TECHNICALLY LIMITED STUDY, BUT APPEARS NORMAL FOR AGE. Security Solutions Engineer: RUTHIE Drum Operator: EEG.LASHONDA MARTINEZ
== END 2017-12-27 19:40 | disposition short-term general hospital (02) | DRG 70 ==
LOC: ERS 02:55 → T4-B 08:41 → OBSVTOIN 12-21 12:32
PROVIDERS: ADMIT Family Medicine; ATTEND Family Medicine
DX: G93.41 Metabolic encephalopathy (principal); J18.9 Pneumonia, unspecified organism; J96.91 Respiratory failure, unspecified with hypoxia; F03.91 Unspecified dementia, unspecified severity, with behavioral disturbance; R44.3 Hallucinations, unspecified; J98.11 Atelectasis; F29 Unspecified psychosis not due to a substance or known physiological condition; E78.00 Pure hypercholesterolemia, unspecified; R07.89 Other chest pain; N19 Unspecified kidney failure; J44.9 Chronic obstructive pulmonary disease, unspecified; S22.42XD Multiple fractures of ribs, left side, subsequent encounter for fracture with routine healing; I25.10 Atherosclerotic heart disease of native coronary artery without angina pectoris; E11.51 Type 2 diabetes mellitus with diabetic peripheral angiopathy without gangrene; I10 Essential (primary) hypertension; M19.90 Unspecified osteoarthritis, unspecified site; Z86.73 Personal history of transient ischemic attack (TIA), and cerebral infarction without residual deficits; Z87.891 Personal history of nicotine dependence; Z95.820 Peripheral vascular angioplasty status with implants and grafts; Z85.46 Personal history of malignant neoplasm of prostate; Z88.6 Allergy status to analgesic agent
CPT/HCPCS: 36415; 36416; 70450; 70553; 71045; 71046; 80048; 80053; 81003; 82140; 82553; 82607; 82746; 83880; 84145; 84443; 84484; 85025; 87040; 87070; 87205; 90471; 90662; 93005; 94760; 95816; 95819; 96365; 96375; 99406; A4216; A9579; G0008; G8978-GP-CJ; G8979-GP-CI; J0696; J1815; J1940; J2060; J2920; J3486; J7050; J7506

== ENCOUNTER 2018-05-03 13:42 | Outpatient (CLI) | payer MEDICARE, OTHER ==
--- NOTE | 2018-05-03 14:27 | RAD ---
TWO VIEWS CHEST: Comparison: 12-22-17 History: Dyspnea. FINDINGS: Two views of the chest shows normal sized cardiomediastinal silhouette. Atelectasis is seen in the le ft lung base. Increased interstitial markings are present. There is no evidence of consolidation, mas s, or pleural effusion. IMPRESSION: No evidence of acute cardiopulmonary disease. POS: [facility]
== END 2018-05-03 13:43 | disposition home or self-care (01) ==
LOC: RAD 13:42
PROVIDERS: ATTEND Internal Medicine Critical Care Medicine
DX: R06.00 Dyspnea, unspecified (principal)
CPT/HCPCS: 71046

== ENCOUNTER 2018-07-19 09:18 | Day surgery (SDC) | payer MEDICARE, OTHER ==
[2018-07-19] MEDS ORDERED: Acetaminophen 500 MG TAB ONE (10:19)
[2018-07-19] MEDS ORDERED: diphenhydrAMINE 25 MG CAP ONE (10:19)
[2018-07-19] MEDS ORDERED: Acetaminophen 500 MG TAB PO SCH (11:15)
[2018-07-19] MEDS ORDERED: diphenhydrAMINE 25 MG CAP PO SCH (11:15)
[2018-07-19 12:48] LABS: Hemoglobin 8.2 g/dL (14.0-18.0)
[2018-07-19 14:22] VITALS: BP 178/70; TEMP 97.9
== END 2018-07-19 13:23 | disposition home or self-care (01) ==
LOC: SDC/OP 09:18
PROVIDERS: ATTEND Internal Medicine Hematology & Oncology
PROC: 30233N1 Transfusion of Nonautologous Red Blood Cells into Peripheral Vein, Percutaneous Approach (ICD-10-PCS; principal; 2018-07-19)
DX: D64.9 Anemia, unspecified (principal); D69.6 Thrombocytopenia, unspecified; Z88.8 Allergy status to other drugs, medicaments and biological substances
CPT/HCPCS: 36430; 85014; 85018; 86850; 86900; 86901; 86920; P9016; 36415; Q0163

== ENCOUNTER 2018-10-14 21:18 | Emergency (ER) | payer MEDICARE, OTHER ==
[2018-10-14] MEDS ORDERED: Lorazepam 2 MG/ML VIAL ONE (22:01)
[2018-10-14] MEDS ORDERED: Fentanyl 100 MCG/2 ML VIAL ONE (22:01)
--- NOTE | 2018-10-14 22:47 | RAD ---
Right shoulder 3 views HISTORY: Fall. Right shoulder injury. FINDINGS: Acromioclavicular and glenohumeral alignment are maintained. Mild osteophytosis. Humeral sh aft fracture partially visualized and reported separately. IMPRESSION: Mild degenerative changes right shoulder.
--- NOTE | 2018-10-14 22:48 | RAD ---
Right humerus 2 views HISTORY: Fall. Right humerus injury. FINDINGS: Spiral fracture of the mid humeral shaft is present with minimal lateral displacement and a pex medial angulation. Slight internal rotation. IMPRESSION: Humeral shaft fracture
[2018-10-14] MEDS ORDERED: Morphine 4 MG/ML VIAL ONE (23:33)
== END 2018-10-15 00:11 | disposition home or self-care (01) ==
LOC: ERS 21:18
DX: S42.341A Displaced spiral fracture of shaft of humerus, right arm, initial encounter for closed fracture (principal); E78.5 Hyperlipidemia, unspecified; E11.9 Type 2 diabetes mellitus without complications; I10 Essential (primary) hypertension; J45.909 Unspecified asthma, uncomplicated; F03.90 Unspecified dementia, unspecified severity, without behavioral disturbance, psychotic disturbance, mood disturbance, and anxiety; Z87.891 Personal history of nicotine dependence; W01.0XXA Fall on same level from slipping, tripping and stumbling without subsequent striking against object, initial encounter; Y92.009 Unspecified place in unspecified non-institutional (private) residence as the place of occurrence of the external cause
CPT/HCPCS: 96374; 96375; J2060; J2270; J3010

== ENCOUNTER 2018-10-18 16:41 | Inpatient (IN) | payer MEDICARE, OTHER ==
[2018-10-18] MEDS ORDERED: Acetaminophen 500 MG TAB ONE (17:27)
[2018-10-18 17:28] LABS: Mean Corpuscular HGB CONC 32.5 g/dL (32.0-36.0); Mean Corpuscular Hemoglobin 30.5 pg (27.0-31.0); Mean Corpuscular Volume 93.7 fL (78.0-98.0); Mean Platelet Volume 8.2 fL (7.4-10.4); Platelet Count 245 thou/uL (130-400); RBC Distribution Width 19.5 % (11.5-14.5); White Blood Cell (WBC) Count 16.9 thou/uL (4.8-10.8)
[2018-10-18 17:48] LABS: Anisocytosis SLIGHT = 6-15 cells (100X) (0-5/hpf); Band 2 % (5-11); Lymphocytes 6 % (21-51); MDiff Complete? YES; Monocytes 14 % (0-10); Neutrophil 77 % (42-75); Ovalocytes SLIGHT = 2-5 cells (100X) (0-1/hpf); Platelet Morphology Comment Appears Adequate; Polychromasia SLIGHT = 2-3 cells (100X) (0-2/hpf); Reactive Lymphocytes 1 % (0-10)
[2018-10-18] MEDS ORDERED: Piperacillin/Tazobactam 4.5 GM VIAL ONE (17:48)
[2018-10-18 17:49] LABS: ALT (SGPT) 18 U/L (8-55); AST (SGOT) 29 U/L (5-34); Albumin 3.6 g/dL (3.4-4.8); Alkaline Phosphatase 91 U/L (40-150); Anion Gap 16 mmol/L (10-20); BUN (Urea Nitrogen) 46 mg/dL (8.4-25.7); Bilirubin, Total 0.9 mg/dL (0.2-1.2); Calc. Creatinine Clearance 0 mL/min (70-130); Calcium 9.2 mg/dL (7.8-10.44); Carbon Dioxide 23 mmol/L (23-31); Chloride 95 mmol/L (98-107); Estimated GFR-MDRD 25; Globulin 3.4 g/dL (2.4-3.5); Glucose 154 mg/dL (83-110); Potassium 4.6 mmol/L (3.5-5.1); Sodium 129 mmol/L (136-145)
[2018-10-18 18:35] LABS: Bacteria/HPF 4+ HPF (None Seen); Bilirubin Negative (Negative); Blood, Urine Negative (Negative); Clarity Turbid (Clear); Glucose, Urine (Dipstick) Normal (Negative); Leukocyte 500 Leu/uL (Negative); Nitrite Negative (Negative); Protein, Urine (Dipstick) 20 mg/dL (Neg-Trace); RBC/HPF 0-3 HPF (0-3); Squamous Epithelial 0-3 HPF (0-3); Urobilinogen Normal mg/dL (Less than 2); WBC/HPF Greater than 50 HPF (0-3)
--- NOTE | 2018-10-18 19:12 | PDOC.FPRHP ---
- History of Present Illness Chief Complaint: weakness / ams History of Present Illness: Mr. Andrade is a pleasant 78 year old male who presents to the ED this evening for evaluation of multiple complaints, namely decreased pulse ox today taken by his home health nurse. On 10/14/18, he tripped and fell at home resulting in a broken right humeral shaft. He was evaluated in the ER here and sent home with follow up with an orthopedist yesterday. His family that is present states that from the time he went home on Wednesday until his appointment on Wednesday he refused to get out of bed, which is not his normal status. Yesterday after his appointment he got in his recliner and again refused to get up until his home health nurse strongly suggested that he be seen in the ER for low pulse ox. He has had associated decreased appetite, increased lethargy, down mood, and decreased interest in personal hygiene. He denied fever and chills. On Wednesday at the ER visit a skin ulceration on his medial right thigh. When questioned he stated that he believed it was a spider bite and had been present for approximately one week and worsening. At that time he was started on Clindamycin. He has a reported history of dementia. In 12/2017 he was hospitalized for a month for the primary concern of stroke. He was sent to [facility] in [place] and the final diagnosis was possible limbic neuritis vs limbic infarcts. In May of 2018 he was formally diagnosed with dementia, per the patient's . ED Course: He met SIRS criteria due to fever of 101.2F and WBC of 16.9. He was also noted to have respirations of 20/min and O2 sat of 88% on room air. He was given 500mL fluid bolus, 1g Vancomycin, 4.5g Zosyn, and 1000 mg Tylenol. - Allergies/Adverse Reactions Allergies Allergy/AdvReac Type Severity Reaction Status Date / Time metformin Allergy Intermediate Diarrhea Verified 10/18/18 22:35 aspirin Allergy "brings on Verified 10/18/18 22:35 his asthma" ibuprofen Allergy "brings on Verified 10/18/18 22:35 his asthma" - Home Medications Medication Instructions Recorded Confirmed Type Amlodipine Besylate [amLODIPine 5 mg PO QPM 01/29/14 10/18/18 History Besylate] Atorvastatin Calcium [Lipitor] 40 mg PO QAM 01/29/14 10/18/18 History Liraglutide [Victoza 3-Boris] 1.8 mg SC DAILY-AC 01/29/14 10/18/18 History Meloxicam [Mobic] 15 mg PO DAILY 01/29/14 10/18/18 History Montelukast Sodium 10 mg PO QPM 01/29/14 10/18/18 History Oxybutynin Chloride [Ditropan XL] 15 mg PO BID 01/29/14 10/18/18 History Pioglitazone HCl/metFORMIN HCl 15 - 500 mg PO QPM 01/29/14 10/18/18 History [Actoplus met] Budesonide-Formoterol [Symbicort 2 puff INH BID 06/01/17 10/18/18 History 160-4.5] Potassium Chloride 20 meq PO DAILY 07/23/17 10/18/18 History Fluticasone Propionate [Flonase 1 spray EA NARE DAILY 12/20/17 10/18/18 History Nasal [place]] Pantoprazole [Protonix] 40 mg PO DAILY 12/20/17 10/18/18 History Acetaminophen [Tylenol Regular 650 mg PO Q4H PRN tab 12/27/17 10/18/18 Rx Strength] Carvedilol [Coreg] 12.5 mg PO BID 10/18/18 10/18/18 History Clopidogrel Bisulfate [Plavix] 75 mg PO DAILY 10/18/18 10/18/18 History Furosemide [Lasix] 20 mg PO DAILY 10/18/18 10/18/18 History HYDROcodone/Acetaminophen [[place] 1 each PO Q8H PRN 10/18/18 10/18/18 History 10-325 Tablet] HYDROcodone/Acetaminophen [[place] 2 tab PO Q8H PRN 10/18/18 10/18/18 History 10-325 Tablet] Ipratropium 0.06% Nasal Inhale 2 spray EA NARE BID 10/18/18 10/18/18 History [Atrovent 0.06% Nasal Inhaler] Ipratropium/Albuterol Sulfate 3 ml NEB BID 10/18/18 10/18/18 History [DuoNeb] Losartan [Cozaar] 50 mg PO DAILY 10/18/18 10/18/18 History Vit C/E/Zn/Coppr/Lutein/Zeaxan 1 capsule PO BID 10/18/18 10/18/18 History [PreserVision Areds 2 Softgel] cloNIDine [Clonidine] 0.1 mg TD Q7D 10/18/18 10/18/18 History - History PMHx: Stroke 12/2017 - (Limbic neuritis vs stroke) DMII CHF HTN HLD COPD GERD Prostate Cancer Renal calculi PSHx: BL Carotid endartertectomy 01/2017 Aortogram (2013) Cataracts TURP FHx: Dad: Prostate cancer Brother: unknown cancer of blood Social: Former smoker, 30-40year. Quit in 1996. - Review of Systems General: reports: weight/appetite/sleep changes. denies: fever/chills, night sweats Eyes: denies: eye pain, vision changes ENT: denies: nasal congestion, rhinorrhea Respiratory: reports: cough, congestion. denies: shortness of breath, exercise intolerance Cardiovascular: denies: chest pain, palpitation, edema, paroxysmal nocturnal dyspnea, orthopnea Gastrointestinal: denies: nausea, vomiting, diarrhea, constipation, abdominal pain, GI bleeding Genitourinary: denies: incontinence, dysuria, polyuria, discharge Skin: denies: rashes, lesions Musculoskeletal: reports: pain (right humeral shaft fracture), tenderness Neurological: denies: numbness, syncope, seizure, weakness Psychological: reports: other (recent dx of dementia). denies: anxiety, depression - Vital signs BP: 109/57 HR: 68 RR: 18 Tmax: 102.1 Pox: 93% on 3L Wt: 90kg - Physical Exam Constitutional: NAD, awake, alert and oriented HEENT: normocephalic and atraumatic, PERRLA, EOMI, grossly normal vision, grossly normal hearing, MMM, good dention Neck: supple, FROM Chest: no-tender to palpation, no lesions Heart: RRR, normal S1/S2, no murmurs/rubs/gallops, pulses present, no edema Lungs: no respiratory distress, good air movement, no wheezing -Lungs: coarse breath sounds bilaterally at the bases with rhonchi. Abdomen: soft, non-tender, bowel sounds present, no masses/distention Musculoskeletal: normal structure, normal tone -Musculoskeletal: Broken right humeral shaft Neurological: no focal deficit, normal sensation Skin: good turgor, capillary refill <2 seconds -Skin: 1-2 cm ulcerated lesion on the upper, medial right thigh with green pus. Area of erythema and induration approximately 5cm in diameter around the ulcer. Heme/Lymphatic: no unusual bruising or bleeding Psychiatric: normal mood and affect, other -Psychiatric: Denies dementia diagnosis, however confirmed by the and daughter. FMR H&P: Results - Labs Result Diagrams: 10/18/18 17:04 10/18/18 17:04 Lab results: WBC 16.9 thou/uL (4.8-10.8) H 10/18/18 17:04 Hgb 11.0 g/dL (14.0-18.0) L 10/18/18 17:04 Hct 33.8 % (42.0-52.0) L 10/18/18 17:04 MCV 93.7 fL (78.0-98.0) 10/18/18 17:04 Plt Count 245 thou/uL (130-400) 10/18/18 17:04 Band Neuts % (Manual) 2 % (5-11) L 10/18/18 17:04 Sodium 129 mmol/L (136-145) L 10/18/18 17:04 Potassium 4.6 mmol/L (3.5-5.1) 10/18/18 17:04 Chloride 95 mmol/L (98-107) L 10/18/18 17:04 Carbon Dioxide 23 mmol/L (23-31) 10/18/18 17:04 BUN 46 mg/dL (8.4-25.7) H 10/18/18 17:04 Creatinine 2.55 mg/dL (0.7-1.3) H 10/18/18 17:04 Glucose 154 mg/dL (83-110) H 10/18/18 17:04 Lactic Acid 1.1 mmol/L (0.5-2.2) 10/18/18 17:04 Calcium 9.2 mg/dL (7.8-10.44) 10/18/18 17:04 Total Bilirubin 0.9 mg/dL (0.2-1.2) 10/18/18 17:04 AST 29 U/L (5-34) 10/18/18 17:04 ALT 18 U/L (8-55) 10/18/18 17:04 Alkaline Phosphatase 91 U/L (40-150) 10/18/18 17:04 B-Natriuretic Peptide 251.9 pg/mL (0-100) H 10/18/18 17:04 Serum Total Protein 7.0 g/dL (5.8-8.1) 10/18/18 17:04 Albumin 3.6 g/dL (3.4-4.8) 10/18/18 17:04 Urine Ketones Negative mg/dL (Negative) 10/18/18 18:05 Urine Blood Negative (Negative) 10/18/18 18:05 Urine Nitrite Negative (Negative) 10/18/18 18:05 Ur Leukocyte Esterase 500 [place]/uL (Negative) A 10/18/18 18:05 Urine RBC 0-3 HPF (0-3) 10/18/18 18:05 Urine WBC Greater than 50 HPF (0-3) A 10/18/18 18:05 Ur Squamous Epith Cells 0-3 HPF (0-3) 10/18/18 18:05 Urine Bacteria 4+ HPF (None Seen) A 10/18/18 18:05 - EKG Interpretation EKG: Normal sinus rhythm - Radiology Interpretation Chest x-ray Status: image reviewed by me, report reviewed by me ("New increased density in the right lung base suggesting small right pleural effusion and/or volume loss/ infiltrate in the RLL. Follow-up PA and lateral following treatment recommended ") FMR H&P: A/P - Problem List (1) Type 2 diabetes mellitus Current Visit: Yes Status: Acute (2) (HFpEF) heart failure with preserved ejection fraction Current Visit: Yes Status: Acute Code(s): I50.30 - UNSPECIFIED DIASTOLIC ( CONGESTIVE) HEART FAILURE (3) Hypertension Current Visit: Yes Status: Acute Code(s): I10 - ESSENTIAL (PRIMARY) HYPERTENSION (4) Hyperlipidemia Current Visit: Yes Status: Acute Code(s): E78.5 - HYPERLIPIDEMIA, UNSPECIFIED (5) GERD (gastroesophageal reflux disease) Current Visit: Yes Status: Acute Code(s): K21.9 - GASTRO-ESOPHAGEAL REFLUX DISEASE WITHOUT ESOPHAGITIS (6) COPD (chronic obstructive pulmonary disease) Current Visit: Yes Status: Acute (7) Urinary tract infection Current Visit: No Status: Acute - Plan 1. Acute hypoxic respiratory failure * O2 sats reported to be in the 50s at home by home health nurse. * 88% on room air upon arrival to [facility]. 2. Sepsis 2/2 pneumonia vs UTI vs cellulitis * Limited chest x-ray due to one view, however the right lung has remarkable opacity in the lower lung that is concerning for pneumonia vs pleural effusion. He has rhonchi on auscultation. He states that he cannot stand for a 2 view chest x-ray. * Consider chest CT tomorrow if fevers continue or he fails to improve with antibiotic therapy. * Urinalysis was obviously dirty. He denies complaints of dysuria. Urine cultures pending. * Blood cultures pending. * Obvious infection of the ulcer on the right medial thigh. * Will continue to treat with vanc and zosyn until cultures pend or source of infection is more clearly defined. * Creatinine clearance 32mL/min. Requested pharmacy to dose vancomycin. * Vanc 1gm q 24 and Zosyn 2.25g q 6hr. 3. Acute encephalopathy 2/2 sepsis vs delirium with dementia * Per family, he is not acting his usual self. He has refused to get out of bed and denied showering which is abnormal for him. He denies history of dementia, stating "I am not crazy." At this time, he is oriented to person, place and time. However, I am not familiar with his baseline. Will continue to monitor and reassess. 4. Type II diabetes mellitus * Will hold home medications due to acute concerns. (Pioglitazone for potential CHF exacerbation, metformin for THOMAS) * Will utilize mild SS insulin and hyperglycemia protocol while hospitalized and resume home medications on discharge. * Pioglitazone/Metformin * Victoza 5. COPD * Continue home inhalers * Symbicort * DuoNeb * Atrovent * Will provide DuoNebs here as needed. 3mL q 4hr prn. 6. Hypertension * Continue: * Amlodipine 5mg po q day * Carvedilol 12.5mg po BID * Losartan 50mg q day * Clonidine patch 0.1mg q 7 days - DUE 10/20 for change 7. Hyperlipidemia * Continue Atorvastatin 40mg 8. Right humeral shaft fracture * Continue pain control with [place] 10-325, 1 tab q 8 hour. * Continue to evaluate for adequate pain control * PT/OT consulted. 9. GERD * continue Protonix 40mg q day 10. HFpEF * ECHO from 07/2017 showed EF of 55-60% * Continue Lasix 20mg po daily * Continue potassium chloride 20meq po q daily Disposition/LOS: Dispo: Inpatient >48hours, will likely need rehab placement on discharge. Code: DNI IVF: SL, tolerating PO hydration w/ h/o CHF. Diet: Heart healthy VTE: Plavix, SCDs FMR H&P: Upper Level - Pertinent history 78 yo gentleman presents with ams and weakness. He recently fell and broke his arm. Presented today with oxygen saturation in the 50s per home health nurse. He has a new diagnosis since June of dementia (alzh vs vasc). and daughter complain of worsening weakness, recent spider bite of right lower groin , and chronic cough, wet. Denied urinary sx. Was started on clindamicin a few days ago for his spider bite. - Pertinent findings HR 73 O2 sat: 92% 4-5L BP: 131/60 RR14 PE: crackles right sided RRR, systolic murmur 1+edema b/l lower extremities a&ox3 NAD abdomen soft nontender, nondistended, normal bowel sounds Labs: wbc: 16.9 H/H 11/33.8 Procal: .75 Na 129 Cl 95 BUN/Cr 46/2.55 BNP: 251 EKG: NSR CXR: right lower lobe opacity, possible infiltrate - Plan Date/Time: 10/18/181909 A/P: Acute hypoxic respiratory failure- -2/2 suspected CAP vs COPD exacerbation; requring 4-5L currently, new requirement; duonebs 3ml q3 hr prn; vanc and zosyn on board. Acute encephalopathy 2/2 delerium on chronic dementia vs hyponatremia vs infectious (CAP vs UTI vs cellulitis) -a&ox 3 when we saw him; suspect delerium vs infectious, as hyponatremia is mild at 129; treating with abx for infection -continue to orient pt, pt not agitated currently Sepsis 2/2 CAP vs cellulitis vs UTI -wbc 16 and febrile to 101.2F -given vanc, zosyn, and tylenol in the ER, and a 500ml bolus -suspected CAP -no urinary sx but 4+bacteria, LE, wbc, and 0-3 squamous cells, sent for cx -mild erythema surrounding spider bite, warm and tender THOMAS on CKD-BUN/Cr 46/2.55; ratio ~18, suspect prerenal, will get urine sodium, cr and assess FeNA; avoid nephrotoxic druns, renal dose abx; no indication for dialysis. -CHF, elevated BNP. Unsure of baseline. Restarted home dose of lasix 20mg daily and started strict I/O's; consider IV is additional diuresis needed. -See administrative intern note for additional chronic conditions. CODE: DNI DVT: NAOMIs Pilar Coto MD, PGY-3 Addendum - Attending - Attending Attestation Date/Time: 10/18/18 3546 I personally evaluated the patient and discussed the management with Dr. Topete I agree with the History, Examination, Assessment and Plan documented above with any addition or exceptions noted below. 78 yo male with dementia with recent right humerus spiral fracture with ER evaluation regard decline mental status and presents with fever with sepsis with suspected sources UTI, PNA verse cellulitis right LE. Patient diagnosed with mixed dementia Alzheimer/vascular after extensive neurological work up in [place]. HX DM2,HTN,Dyslipidemia, COPD, S/P CVA, HF, prior smoker Allergies ASA/Motrin causing reactive airways Patient with HX PVD s/p bilateral carotid endarectomy and LE vascular procedures as well. Patient with prior urosepsis with ESBL E.Coli and nephrolithiasis s/p lithotrispy and ureteral stent placement. 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 Patient with sepsis will be admitted empirical antibiotic await blood and urine C&S note prior ESBL E. Coli and nephrolithiasis , CXR with RLL infiltrate need scheduled nebulizer treatment and supplemental oxygen as well . Patient would benefit from PT and consideration rehab placement. Recent "spider Bite" right lower extremity of questionable significance. Anticipate mental status may decline with delirium on preexisting dementia he appears at baseline currently per family.
--- NOTE | 2018-10-18 19:25 | RAD ---
FRONTAL RADIOGRAPH CHEST: 10/18/18 COMPARISON: 05/03/18. HISTORY: Fatigue, weakness. FINDINGS: There is mild increased linear density within the medial left lung base which may signify volume loss or minimal infiltrate. No focal consolidation. No pneumothorax. There is new increased density in th e right base with partial obscuration of the right hemidiaphragm and right heart border. IMPRESSION: New increased density in the right lung base suggests small right pleural effusion and/or volume loss /infiltrate within the right lower lobe. Follow-up PA and lateral imaging of the chest following david tment to document resolution advised. POS: OFF
[2018-10-18] MEDS ORDERED: Ondansetron ODT 4 MG TAB PO PRN (21:47)
[2018-10-18] MEDS ORDERED: Acetaminophen 325 MG TAB PO PRN (21:47)
[2018-10-18] MEDS ORDERED: HumaLOG 300 UNITS/3 ML VIAL SC PRN ×2 (21:47)
[2018-10-18] MEDS ORDERED: Dextrose 50% Abboject 50 ML SYRINGE SLOW IVP PRN (21:47)
[2018-10-18] MEDS ORDERED: Dextrose 5% in Water 1,000 ML IV PRN (21:47)
[2018-10-19] MEDS ORDERED: cloNIDine 0.1mg/24 Hour PATCH TD SCH (02:00)
[2018-10-19] MEDS: HYDROcodone/Acetaminophen 10/325 mg Tablet PO SCH ×3 (03:14→18:41)
[2018-10-19] MEDS: Piperacillin/Tazobactam 2.25 GM in Sodium Chloride 0.9% 100 ML IVPB SCH ×3 (05:02→18:55)
--- NOTE | 2018-10-19 05:23 | PDOC.FM ---
- Subjective Subjective: Pt appeared melancholic this am. Stated that he feels fine aside from his pain in his right arm 2/2 to recent fracture. Denies any CP, SOB, abdominal pain, dysuria. States he has had decreased appetite and lack of urge to eat for no specific reason. When asked why he has not been getting up to ambulate he did not have a reason aside from not having the urge due. Denied any specific weakness although notes show that he was unable to get up yesterday for the 2 view CXR. - Objective Vital Signs & Weight: Vital Signs (12 hours) Temp Pulse Resp BP Pulse Ox 10/19/18 04:34 98.9 F 74 18 167/71 H 90 L 10/19/18 00:17 97.9 F 70 18 165/68 H 92 L 10/18/18 21:24 97.7 F 66 18 180/72 H 90 L Weight Weight 93.1 kg Result Diagrams: 10/19/18 05:07 10/19/18 05:07 Phys Exam - Physical Examination Constitutional: NAD Obese HEENT: PERRLA Dry MM Neck: supple, full ROM Respiratory: no wheezing Diminished breath sounds on entire right side some crackles heard on the left lower simental Cardiovascular: RRR, no significant murmur Gastrointestinal: soft, non-tender, no distention Hypoactive bowel sounds Musculoskeletal: no edema, pulses present Neurological: non-focal, moves all 4 limbs Psychiatric: A&O x 3 Deviation from normal: Depressed mood with flat affect Dx/Plan (1) Acute and chronic respiratory failure with hypoxia Code(s): J96.21 - ACUTE AND CHRONIC RESPIRATORY FAILURE WITH HYPOXIA Status: Acute (2) Sepsis Code(s): A41.9 - SEPSIS, UNSPECIFIED ORGANISM Status: Acute (3) Acute kidney injury superimposed on CKD Code(s): N17.9 - ACUTE KIDNEY FAILURE, UNSPECIFIED; N18.9 - CHRONIC KIDNEY DISEASE, UNSPECIFIED Status: Acute (4) (HFpEF) heart failure with preserved ejection fraction Code(s): I50.30 - UNSPECIFIED DIASTOLIC (CONGESTIVE) HEART FAILURE Status: Acute (5) COPD (chronic obstructive pulmonary disease) Status: Acute (6) Type 2 diabetes mellitus Status: Acute - Plan Plan: Acute hypoxic respiratory failure 2/2 suspected CAP vs COPD exacerbation -requiring 4-5L O2 currently w/ sats ~90%, new requirement -duonebs 3ml q3 hr prn -vanc and zosyn started in ED -unable to get 2 view CXR due to pt unable to stand up Acute encephalopathy 2/2 delerium on chronic dementia vs hyponatremia vs infectious (CAP vs UTI vs cellulitis) suspect delerium vs infectious, as hyponatremia is mild at 129 -a&ox 3 upon presentation -recent diagnosis of dementia - unspecified -treating with abx for infection -continue to orient pt, pt not agitated currently Sepsis 2/2 CAP vs cellulitis vs UTI suspected CAP; no urinary sx but 4+bacteria, LE, wbc, and 0-3 squamous cells, sent for cx; mild erythema surrounding spider bite on right thigh, warm and tender taking clinda x4 days for this -wbc 16 and febrile to 101.2F upon presentation -given vanc, zosyn, and tylenol in the ER, and a 500ml bolus -pharmacy to dose vanc with fluctuating Cr THOMAS on CKD -BUN/Cr 46/2.55; ratio ~18, suspect prerenal, will get urine sodium, cr and assess FeNA -avoid nephrotoxic drugs, renal dose abx -trend Cr: 2.55 > 2.07 -serum osmo 285 Congestive Heart Failure -elevated BNP. Unsure of baseline. -Restarted home dose of lasix 20mg daily and started strict I/O's -pt will be a tight fluid balance with immobility, poor PO intake, CHF DM II -holding pioglitizone for CHF and metformin for THOMAS -start mild SSI and hypoglycemia protocol COPD -continue home inhalers: Symbicort, DuoNeb, Atrovent -will provide DuoNebs here as needed. 3mL q 4hr prn. Hypertension -continue: Amlodipine 5mg po q day, Carvedilol 12.5mg po BID, Losartan 50mg q day, Clonidine patch 0.1mg q 7 days - DUE 10/20 for change Hyperlipidemia -continue Atorvastatin 40mg Right humeral shaft fracture -continue pain control with [place] 10-325, 1 tab q 8 hour. -PT/OT consulted. GERD -continue Protonix 40mg q day Condition: Stable VTE: SCD and plavix Diet: Heart healthy Code status: DNI Dispo: Admitted to oncology, pt has low ambition to help himself right now, will try to get him moving with help of PT who can also assess his strength and mobility at this time. Treating for both UTI and CAP with improving leukocytosis.
[2018-10-19 05:48] LABS: Anion Gap 15 mmol/L (10-20); BUN (Urea Nitrogen) 44 mg/dL (8.4-25.7); Calc. Creatinine Clearance 39 mL/min (70-130); Calcium 8.4 mg/dL (7.8-10.44); Carbon Dioxide 19 mmol/L (23-31); Chloride 99 mmol/L (98-107); Estimated GFR-MDRD 31; Glucose 140 mg/dL (83-110); Potassium 4.5 mmol/L (3.5-5.1); Sodium 128 mmol/L (136-145)
[2018-10-19 06:05] LABS: #Eosinphils 0.2 thou/uL (0.0-0.7); #Lymphocytes 0.5 thou/uL (1.20-3.40); #Monocytes 1.4 thou/uL (0.11-0.59); #Neutrophils 11.3 thou/uL (1.40-6.50); %Basophils 0.2 % (0.0-1.0); %Eosinophils 1.3 % (0.0-10.0); %Lymphocytes 3.8 % (21.0-51.0); %Monocytes 10.7 % (0.0-10.0); Mean Corpuscular HGB CONC 32.2 g/dL (32.0-36.0); Mean Corpuscular Hemoglobin 30.6 pg (27.0-31.0); Mean Platelet Volume 9.8 fL (7.4-10.4); Platelet Count 181 thou/uL (130-400); RBC Distribution Width 19.7 % (11.5-14.5); Red Blood Cell (RBC) Count 3.25 mill/uL (4.70-6.10); White Blood Cell (WBC) Count 13.5 thou/uL (4.8-10.8)
[2018-10-19] MEDS: Mometasone/Formoterol 120 PUFF INHALER INH SCH ×2 (07:40→18:22)
[2018-10-19] MEDS: Carvedilol 6.25 MG TAB PO SCH ×2 (08:44→20:46)
[2018-10-19] MEDS: Oxybutynin ER 5 MG TAB PO SCH ×2 (08:44→20:55)
[2018-10-19] MEDS: Atorvastatin Calcium 40 MG TAB PO SCH (08:44)
[2018-10-19] MEDS: Furosemide 20 MG TAB PO SCH (08:45)
[2018-10-19] MEDS: Potassium Chloride 20 MEQ TAB PO SCH (08:45)
[2018-10-19] MEDS: cloNIDine 0.1mg/24 Hour PATCH TD SCH (08:45)
[2018-10-19] MEDS: Clopidogrel Bisulfate 75 MG TAB PO SCH (08:45)
[2018-10-19] MEDS ORDERED: Non-Formulary Item 1 EACH (Budesonide-Formoterol [Symbicort 160-4.5] 2 PUFF) INH SCH (09:00)
[2018-10-19] MEDS ORDERED: Enoxaparin Sodium 30 MG/0.3 ML SYRINGE SC SCH (09:00)
[2018-10-19] MEDS ORDERED: Famotidine 20 MG TAB PO SCH (09:00)
[2018-10-19] MEDS ORDERED: Losartan 25 MG TAB PO SCH (09:00)
[2018-10-19] MEDS ORDERED: Ipratropium Bromide 0.06% Nasal Inhaler 15ml EA NARE SCH (09:00)
[2018-10-19] MEDS ORDERED: Meloxicam 15 MG TAB PO SCH (09:00)
--- NOTE | 2018-10-19 11:50 | PRG ---
DATE OF SERVICE: 10/19/2018 SUBJECTIVE: Mr. Andrade is a 78-year-old man, who was admitted with generalized weakness following a fall that led to a left humeral fracture. He does not describe any chest, abdominal, or hip pain. He was noted on admission to have urinary tract infection and criteria for sepsis. He has been started on antibiotics and fluids. Already he is looking and feeling better. He is, however, quite immobile, although we are having Physical Therapy work with him. OBJECTIVE: VITAL SIGNS: Stable with a blood pressure 160/70. He is currently afebrile having an admission temperature of greater than 101. His white count is dropped from 16,900 to 13,500. Job ID: [id number]
[2018-10-19] MEDS ORDERED: Vancomycin HCl 1 GM in Premix Bag 1 BAG IVPB SCH (17:00)
[2018-10-19] MEDS: Amlodipine 5 MG TAB PO SCH (20:46)
[2018-10-19] MEDS: Montelukast Sodium 10 mg Tablet PO SCH (20:46)
[2018-10-20] MEDS: Piperacillin/Tazobactam 2.25 GM in Sodium Chloride 0.9% 100 ML IVPB SCH ×5 (00:30→23:30)
[2018-10-20] MEDS: HYDROcodone/Acetaminophen 10/325 mg Tablet PO SCH ×2 (01:18→10:00)
--- NOTE | 2018-10-20 05:34 | PDOC.FM ---
- Subjective Subjective: Pt continues to feel well today, however, pt noted minimal ambulation yesterday. He was in his chair later this morning and stated that he was able to walk to the bathroom. - Objective Vital Signs & Weight: Vital Signs (12 hours) Temp Pulse Resp BP Pulse Ox 10/20/18 03:38 97.6 F 69 16 154/67 H 90 L 10/19/18 23:51 98.4 F 69 20 189/77 H 87 L 10/19/18 20:46 62 10/19/18 20:00 97.6 F 62 20 141/64 H 92 L 10/19/18 18:22 78 16 93 L Weight Admit Weight 93.1 kg Weight 93.1 kg I&O: 10/18/18 10/19/18 10/20/18 06:59 06:59 06:59 Intake Total 600 1500 Balance 600 1500 Result Diagrams: 10/20/18 06:00 10/20/18 06:00 Phys Exam - Physical Examination Constitutional: NAD HEENT: PERRLA, moist MMs Neck: no nodes, full ROM Respiratory: no wheezing, no rhonchi diffuse crackles Cardiovascular: RRR, no rub Gastrointestinal: soft, non-tender, positive bowel sounds Musculoskeletal: no edema, pulses present right arm in sling Neurological: non-focal, moves all 4 limbs Psychiatric: normal affect, A&O x 3 Deviation from normal: Right upper arm brusing Dx/Plan (1) Acute and chronic respiratory failure with hypoxia Code(s): J96.21 - ACUTE AND CHRONIC RESPIRATORY FAILURE WITH HYPOXIA Status: Acute (2) Sepsis Code(s): A41.9 - SEPSIS, UNSPECIFIED ORGANISM Status: Acute (3) Acute kidney injury superimposed on CKD Code(s): N17.9 - ACUTE KIDNEY FAILURE, UNSPECIFIED; N18.9 - CHRONIC KIDNEY DISEASE, UNSPECIFIED Status: Acute (4) (HFpEF) heart failure with preserved ejection fraction Code(s): I50.30 - UNSPECIFIED DIASTOLIC (CONGESTIVE) HEART FAILURE Status: Acute (5) COPD (chronic obstructive pulmonary disease) Status: Acute (6) Type 2 diabetes mellitus Status: Acute - Plan Plan: Acute hypoxic respiratory failure 2/2 suspected CAP vs COPD exacerbation -requiring 4-5L O2 currently w/ sats ~90%, new requirement -duonebs 3ml q4 hr prn -vanc and zosyn started in ED -unable to get 2 view CXR due to pt unable to stand up - will consider CT if not able to tolerate today Sepsis 2/2 CAP vs cellulitis vs UTI suspected CAP; no urinary sx but 4+bacteria, LE, wbc, and 0-3 squamous cells, sent for cx; mild erythema surrounding spider bite on right thigh, warm and tender taking clinda x4 days for this -wbc 16 and febrile to 101.2F upon presentation -given vanc, zosyn, and tylenol in the ER, and a 500ml bolus -pharmacy to dose vanc with fluctuating Cr -urine culture +for e.coli with MDR, susceptible to Zosyn, will cont. THOMAS on CKD -BUN/Cr 46/2.55; ratio ~18 -avoid nephrotoxic drugs, renal dose abx -trend Cr: 2.55 > 2.07 -serum osmo 285 Congestive Heart Failure -elevated BNP. Unsure of baseline. -Restarted home dose of lasix 20mg daily and started strict I/O's -pt will be a tight fluid balance with immobility, poor PO intake, CHF -extra 20 lasix today due to continued rales and O2 requirement Acute encephalopathy 2/2 delerium on chronic dementia vs hyponatremia vs infectious (CAP vs UTI vs cellulitis) suspect delerium vs infectious, as hyponatremia is mild at 129 -a&ox 3 upon presentation -recent diagnosis of dementia - unspecified -treating with abx for infection -continue to orient pt, pt not agitated currently DM II -holding pioglitizone for CHF and metformin for THOMAS -start mild SSI and hypoglycemia protocol COPD -continue home inhalers: Symbicort, DuoNeb, Atrovent -will provide DuoNebs here as needed. 3mL q 4hr prn. Hypertension -continue: Amlodipine 5mg po q day, Carvedilol 12.5mg po BID, Losartan 50mg q day, Clonidine patch 0.1mg q 7 days - change today Hyperlipidemia -continue Atorvastatin 40mg Right humeral shaft fracture -continue pain control with [place] 10-325, 1 tab q 8 hour. -PT/OT consulted. GERD -continue Protonix 40mg q day Condition: Stable VTE: SCD and plavix Diet: Heart healthy Code status: DNI Dispo: Admitted to oncology, pt has low ambition to help himself right now, will try to get him moving with help of PT who can also assess his strength and mobility at this time. Treating for both UTI and CAP with improving leukocytosis.
[2018-10-20 06:19] LABS: #Eosinphils 0.4 thou/uL (0.0-0.7); #Lymphocytes 0.6 thou/uL (1.20-3.40); #Monocytes 0.9 thou/uL (0.11-0.59); #Neutrophils 7.9 thou/uL (1.40-6.50); %Basophils 0.3 % (0.0-1.0); %Eosinophils 3.9 % (0.0-10.0); %Lymphocytes 6.4 % (21.0-51.0); %Monocytes 9.3 % (0.0-10.0); Hemoglobin 9.3 g/dL (14.0-18.0); Mean Corpuscular HGB CONC 33.5 g/dL (32.0-36.0); Mean Corpuscular Hemoglobin 31.3 pg (27.0-31.0); Mean Corpuscular Volume 93.5 fL (78.0-98.0); Mean Platelet Volume 8.3 fL (7.4-10.4); Platelet Count 203 thou/uL (130-400); RBC Distribution Width 19.1 % (11.5-14.5); Red Blood Cell (RBC) Count 2.95 mill/uL (4.70-6.10); White Blood Cell (WBC) Count 9.9 thou/uL (4.8-10.8)
[2018-10-20 06:36] LABS: Anion Gap 13 mmol/L (10-20); BUN (Urea Nitrogen) 41 mg/dL (8.4-25.7); Calc. Creatinine Clearance 46 mL/min (70-130); Calcium 7.8 mg/dL (7.8-10.44); Carbon Dioxide 23 mmol/L (23-31); Chloride 100 mmol/L (98-107); Estimated GFR-MDRD 38; Glucose 165 mg/dL (83-110); Potassium 4.8 mmol/L (3.5-5.1); Sodium 131 mmol/L (136-145)
[2018-10-20] MEDS: Mometasone/Formoterol 120 PUFF INHALER INH SCH ×2 (07:34→18:20)
[2018-10-20] MEDS: Potassium Chloride 20 MEQ TAB PO SCH (10:25)
[2018-10-20] MEDS: Clopidogrel Bisulfate 75 MG TAB PO SCH (10:26)
[2018-10-20] MEDS: Carvedilol 6.25 MG TAB PO SCH ×2 (10:26→21:57)
[2018-10-20] MEDS: Atorvastatin Calcium 40 MG TAB PO SCH (10:26)
[2018-10-20] MEDS: Furosemide 20 MG TAB PO SCH (10:26)
[2018-10-20] MEDS: Oxybutynin ER 5 MG TAB PO SCH ×2 (10:27→21:58)
[2018-10-20] MEDS: Enoxaparin Sodium 40 MG/0.4 ML SYRINGE SC SCH (10:27)
[2018-10-20] MEDS ORDERED: Furosemide 20 MG/2 ML VIAL SLOW IVP SCH (11:15)
--- NOTE | 2018-10-20 11:43 | PRG ---
DATE OF SERVICE: 10/20/2018 Mr. Andrade is a bit more active this morning, sitting in his chair, in no distress. He is found to have an E coli urinary tract infection and he is on appropriate antibiotics. He is continuing to work also with Physical Therapy. Job ID: [id number]
[2018-10-20] MEDS: Acetaminophen 500 MG TAB PO SCH ×2 (12:54→19:40)
[2018-10-20] MEDS: traMADol HCl 50 MG TAB PO PRN ×2 (12:54→22:00)
--- NOTE | 2018-10-20 13:59 | PQF ---
SERA CEBALLOSE SOCORROANTONY [id number] [id number] CLINICAL DOCUMENTATION IMPROVEMENT CLARIFICATION FORM: ICD-10 Updated PLEASE DO AN ADDENDUM TO THE PROGRESS NOTE WITH ANY DOCUMENTATION UPDATES OR ADDITIONS AND CARRY THROUGH TO DC SUMMARY. THANK YOU. DATE: 10/20/2018 ATTN:DR. Denise QUINTANILLA Please exercise your independent, professional judgment in responding to the clarification form. Clinical indicators are provided on the bottom of this form for your review. Please check appropriate box(s): [ ] Empirically treating Gram Negative Pneumonia [ ] Pneumonia secondary to (specify organism / underlying disease) [ X ] Simple Pneumonia (community acquired - nosocomial) [ ] Other diagnosis [ ] Unable to determine In addition, please specify: Present on Admission (POA): [ X] Yes [ ] No [ ] Unable to determine For continuity of documentation, please document condition throughout progress notes and discharge summary. Thank You. CLINICAL INDICATORS - SIGNS / SYMPTOMS / LABS 10/18 ED: : PT PRESENTS WITH AMS AND FEVER OF 101.2, WBC 16.9 10/18 ED PHYSICIAN DX: SEPSIS, THOMAS, FEVER, RLE CELLULITIS, UTI 10/18 CXR NEW INCREASED DENSITY IN THE RIGHT LUNG BASE SUGGEST SMALL RT PLEURAL EFFUSION AND OR VOLUME LOSS/INFILTRATE WITH IN THE RLL 10/18 H & P (CROFT) PLAN: 2) SEPSIS 2/2 PNEUMONIA VS UTI VS CELLULITIS 10/19 PN (SOCORRO) PLAN: ACUTE HYPOXIC RESP FAILURE 2/2 SUSPECT CAP VS COPD EXACERBATION 10/20 PN (SOCORRO) PLAN: ACUTE HYPOXIC RESP FAILURE2/2 SUSPECTED CAP VS COPD EXACERBATION REQUIRING 4-5 L O2 CURRENTLY W SATS- 90% , NEW REQUIREMENT, DUO NEBS 3ML Q 4 HR PRN RISK: UNABLE TO GET 2 VIEW CXR, PT UNABLE TO STAND UP ( PN / SOCORRO) PT LACKS URGE/NEED TO AMBULATE AND MOVE AROUND ( PN / KLMINGOE) PT IS QUITE IMMOBILE (PN/SABRUSULA) TREATMENTS: VANC/ ZOSYN IV STARTED IN ED - PRESENT( PN / SOCORRO) SUPPLEMENTAL O2 DUO NEBS PRN THANK YOU ! ALISHA (This form is maintained as a part of the permanent medical record) 2014 [employer] All Rights Reserved [email or web address] [email or web address] [phone] [email or web address]
--- NOTE | 2018-10-20 14:17 | PQF ---
SERA CEBALLOS MIR IJEOMAANTONY Shah [id number] ONC-137 [id number] CLINICAL DOCUMENTATION IMPROVEMENT CLARIFICATION FORM: ICD-10 Updated PLEASE DO AN ADDENDUM TO THE PROGRESS NOTE WITH ANY DOCUMENTATION UPDATES OR ADDITIONS AND CARRY THROUGH TO DC SUMMARY. THANK YOU. DATE: 10/20/18 ATTN:DR. Danielle QUINTANILLA Please exercise your independent, professional judgment in responding to the clarification form. Clinical indicators are provided on the bottom of this form for your review. Please check appropriate box(s) to clarify if the following diagnosis has been ruled in or ruled out: CELLULITIS [ X] Ruled in diagnosis [ X] Continue to treat [ ] Resolved [ ] Ruled out diagnosis [ ] Other diagnosis [ ] Unable to determine In addition, please specify: Present on Admission (POA): [ X] Yes [ ] No [ ] Unable to determine For continuity of documentation, please document condition throughout progress notes and discharge summary. Thank You. CLINICAL INDICATORS - SIGNS / SYMPTOMS / LABS 10/18 ED: SEPSIS ALERT UPON ADMISSION TO ED// PT PRESENTS TO ED WITH ONE WEEK OLD SPIDER BITE PRESENT TO RIGHT THIGH, PT REPORT HAD BEEN CLEANING THE AREA BUT DID NOT CLEAN THE AREA THE DAY OF PRESENTATION TO ED, FEVER OF 101.2 UPON ADMISSION TO ED, 10/18 WBC 16.9 10/18 ED PHYSICIAN DX: SEPSIS, THOMAS, FEVER, RLE CELLULITIS, UTI 10/18 H & P (LEXIE) PLAN: 2) SEPSIS 2/2 PNEUMONIA VS UTI VS CELLULITIS 10/20 PN (SOCORRO) SEPSIS 2/2 CAP VS CELLULITIS VS UTI, MILD ERYTHEMA SURROUNDING SPIDER BITE ON RT THIGH, WARM AND TENDER NO FURTHER MENTION TO DATE OF CELLULITIS RISK: HX OF DM ( PN /SOCORRO) ADVANCED AGE (78) TREATMENTS: SERIAL LABS VANC/ ZOSYN THANK YOU! ALISHA (This form is maintained as a part of the permanent medical record) 2014 [employer] All Rights Reserved [email or web address] [phone] JUAN
[2018-10-20 16:33] LABS: Vancomycin, Trough 11.6 ug/mL
[2018-10-20] MEDS: Vancomycin HCl 1.5 GM in Sodium Chloride 0.9% 250 ML 300 ML IVPB SCH (18:32)
[2018-10-20] MEDS: Amlodipine 5 MG TAB PO SCH (21:57)
[2018-10-20] MEDS: Montelukast Sodium 10 mg Tablet PO SCH (21:58)
[2018-10-20] MEDS ORDERED: guaiFENesin 100 MG/5 ML UDCUP PO PRN (23:48)
[2018-10-21] MEDS ORDERED: Diabetic Tussin 200 MG/10 ML UDCUP PO PRN (00:15)
[2018-10-21] MEDS: hydrALAZINE 20 MG/ML VIAL SLOW IVP PRN ×2 (00:22→23:15)
[2018-10-21] MEDS: Acetaminophen 500 MG TAB PO SCH ×5 (00:22→23:14)
[2018-10-21] MEDS ORDERED: Furosemide 20 MG/2 ML VIAL SLOW IVP SCH (01:45)
[2018-10-21] MEDS ORDERED: Furosemide 40 MG/4 ML VIAL SLOW IVP SCH (01:49)
[2018-10-21 02:11] LABS: CO2 Tension 36.9 mmHg (35.0-45.0); pH, Arterial 7.41 (7.35-7.45)
[2018-10-21 02:12] LABS: Actual Bicarbonate (HCO3a) 22.9 mEq/L (22-28); Base Excess (BEa) -1.4 mEq/L (-2.0 to +3.0); Hemoglobin (Hb) 11.2 g/dL (14.0-18.0); O2 Tension (PaO2) 48.3 mmHg (> 70.0)
[2018-10-21 02:13] LABS: Calcium, Ionized 1.12 mmol/L (1.12-1.30); Carboxyhemoglobin (COHb) 0.7 gm% (0.0-3.0); Potassium - ABG Lab 4.17 mmol/L (3.70-5.30); Puncture Site LRADIAL
[2018-10-21 02:14] LABS: ALV-art Gradient 162.255 (0-20)
[2018-10-21] MEDS ORDERED: hydrALAZINE 20 MG/ML VIAL SLOW IVP SCH (02:30)
--- NOTE | 2018-10-21 03:37 | PDOC.EVN ---
Event Note - Event Note Event Note: Paged by nurse regarding Mr. Andrade regarding pt's cough and BP's in the 200s/ 80s. Upon evaluation the pt had decreased breath sounds throughout all lung simental, worsening opacities on the right lung compared to prior cxr, and net + 1300 for the past 24 hours. Recheck on his vitals showed a pulse ox of 80% on 4L O2. BP was 200/85, HR 88, afebrile. Ordered 40mg IV of lasix to be given and ordered an ABG which showed the pt to be hypoxemic, with normal Co2, and Bicarb. Decided to transfer the patient to [facility] and start HF NC for hypoxemia. Will recheck abg in a few hours and attempt to wean as tolerated, pending abg results. Placed him on strict I/O's and will reassess volume status frequently.
[2018-10-21] MEDS: Piperacillin/Tazobactam 2.25 GM in Sodium Chloride 0.9% 100 ML IVPB SCH ×4 (05:28→23:16)
[2018-10-21 05:31] LABS: Actual Bicarbonate (HCO3a) 27.6 mEq/L (22-28); Base Excess (BEa) 3.3 mEq/L (-2.0 to +3.0); CO2 Tension 40.9 mmHg (35.0-45.0); Hemoglobin (Hb) 10.3 g/dL (14.0-18.0); Potassium - ABG Lab 4.32 mmol/L (3.70-5.30); pH, Arterial 7.45 (7.35-7.45)
[2018-10-21 05:40] LABS: O2 Tension (PaO2) 55.8 mmHg (> 70.0); Puncture Site L RADIAL
[2018-10-21 05:41] LABS: ALV-art Gradient 178.275 (0-20)
--- NOTE | 2018-10-21 05:42 | PDOC.FM ---
- Subjective Subjective: Last night pt developed a cough, SOB with sats in the low 80's on 4L (ABG = hypoxemic), and SBP >200. He was transferred the [facility] for high flow O2 and given 2 doses of hydralazine. Upon eval this morning pt was resting comfortably and had pulled off his O2 and was satting 90% on RA. He denied any shortness of breath at that time. Pt was unable to sit up for me due to weakness. - Objective Vital Signs & Weight: Vital Signs (12 hours) Temp Pulse Resp BP BP Pulse Ox 10/21/18 03:42 98.4 F 98 10/21/18 02:49 88 10/21/18 01:50 98.3 F 88 20 200/85 H 89 L 10/21/18 01:28 85 16 211/90 H 10/21/18 00:22 74 10/20/18 23:53 97.5 F L 74 16 201/83 H 90 L 10/20/18 21:57 65 177/95 H 10/20/18 20:00 93 L 10/20/18 19:35 97.5 F L 65 20 192/71 H 89 L Weight Admit Weight 93.1 kg Weight 101.7 kg Most Recent Monitor Data Heart Rate from ECG 85 NIBP 168/76 NIBP BP-Mean 106 Respiration from ECG 22 SpO2 98 I&O: 10/19/18 10/20/18 10/21/18 06:59 06:59 06:59 Intake Total 600 1500 Output Total 200 Balance 600 1300 Result Diagrams: 10/21/18 04:51 10/21/18 04:51 Phys Exam - Physical Examination Constitutional: NAD HEENT: PERRLA, moist MMs Neck: no JVD, full ROM Rales throughout, diminished on the right Cardiovascular: RRR, no significant murmur Gastrointestinal: soft, non-tender, no distention, positive bowel sounds Musculoskeletal: pulses present, edema present (1+ pitting edema to bilateral LE ) Neurological: non-focal, moves all 4 limbs Psychiatric: normal affect, A&O x 3 Deviation from normal: Pt does not recall most events from last night Skin: no rash, cap refill <2 seconds Dx/Plan (1) Acute and chronic respiratory failure with hypoxia Code(s): J96.21 - ACUTE AND CHRONIC RESPIRATORY FAILURE WITH HYPOXIA Status: Acute (2) Sepsis Code(s): A41.9 - SEPSIS, UNSPECIFIED ORGANISM Status: Acute Qualifiers: Sepsis type: Escherichia coli Severe sepsis acute organ dysfunction type: encephalopathy Severe sepsis shock status: without septic shock (3) Acute kidney injury superimposed on CKD Code(s): N17.9 - ACUTE KIDNEY FAILURE, UNSPECIFIED; N18.9 - CHRONIC KIDNEY DISEASE, UNSPECIFIED Status: Acute (4) (HFpEF) heart failure with preserved ejection fraction Code(s): I50.30 - UNSPECIFIED DIASTOLIC (CONGESTIVE) HEART FAILURE Status: Acute Qualifiers: Heart failure chronicity: acute on chronic Qualified Code(s): I50.33 - Acute on chronic diastolic (congestive) heart failure (5) COPD (chronic obstructive pulmonary disease) Status: Acute (6) Type 2 diabetes mellitus Status: Acute Qualifiers: Diabetes mellitus retirement insulin use: without termite control technician use - Plan Plan: Acute hypoxic respiratory failure 2/2 suspected CAP vs COPD exacerbation vs CHF - likely multifactorial -duonebs 3ml q4 hr - scheduled 10/21 -vanc and zosyn started in ED -unable to get 2 view CXR due to pt unable to stand up -last night pt desated to low 80's on 4L with SOB, cough, and worsening breath sounds, transferred to IMCU for high flow NC and given 40mg Lasix -initial ABG showed hypoxemia with pO2 48.3 at 0145, follow up ABG after high flow was pO2 55.8 at 0515 -repeat CXR this morning showed mild interval worsening in rt pleural effusion, effusions present bilaterally -will consider starting Bipap today if pt desats again or if he seems to be getting fatigued -pt was satting 90% on RA this morning Sepsis 2/2 CAP vs cellulitis vs UTI suspected CAP; no urinary sx but 4+bacteria, LE, wbc, and 0-3 squamous cells, sent for cx; mild erythema surrounding spider bite on right thigh, warm and tender taking clinda x4 days for this -wbc 16 and febrile to 101.2F upon presentation -given vanc, zosyn, and tylenol in the ER, and a 500ml bolus -pharmacy to dose vanc with fluctuating Cr -urine culture +for e.coli with MDR, susceptible to Zosyn, will cont. -WBC today 10.4, afebrile THOMAS on CKD -initial serum osmo 285 -avoid nephrotoxic drugs, renal dose abx -trend Cr: 2.55 > 2.07 > 1.47 Congestive Heart Failure -elevated BNP. Unsure of baseline. -Restarted home dose of lasix 20mg daily and started strict I/O's -pt will be a tight fluid balance with immobility, poor PO intake, CHF -extra 20 lasix yesterday due to continued rales and O2 requirement, this morning with SOB exacerbation given additional 40mg -will increase pt's lasix so that he is on his home 20mg PO and additionally 40mg IV -Echo ordered this am Acute encephalopathy / delerium on chronic dementia vs hyponatremia vs infectious (CAP vs UTI vs cellulitis) suspect delerium vs infectious, as hyponatremia is mild at 129 -a&ox 3 upon presentation -recent diagnosis of dementia - unspecified -treating with abx for infection -continue to orient pt, pt not agitated currently DM II -holding pioglitizone for CHF and metformin for THOMAS -start mild SSI and hypoglycemia protocol COPD -continue home inhalers: Symbicort, DuoNeb, Atrovent -will provide DuoNebs here as needed. 3mL q 4hr prn. Hypertension -continue: Amlodipine 5mg po q day, Carvedilol 12.5mg po BID, Losartan 50mg q day, Clonidine patch 0.1mg q 7 days - changed 10/19 -hydralazine prn SBP > 180 Hyperlipidemia -continue Atorvastatin 40mg Right humeral shaft fracture -continue pain control with [place] 10-325, 1 tab q 8 hour. -PT/OT consulted. GERD -continue Protonix 40mg q day Condition: Stable VTE: SCD and plavix Diet: Heart healthy Code status: DNI Dispo: Admitted to oncology, pt has low ambition to help himself right now, will try to get him moving with help of PT who can also assess his strength and mobility at this time. Treating for both UTI and CAP with improving leukocytosis.
[2018-10-21 05:52] LABS: #Eosinphils 0.5 thou/uL (0.0-0.7); #Lymphocytes 0.5 thou/uL (1.20-3.40); #Monocytes 0.9 thou/uL (0.11-0.59); #Neutrophils 8.6 thou/uL (1.40-6.50); %Basophils 0.3 % (0.0-1.0); %Eosinophils 4.8 % (0.0-10.0); %Lymphocytes 4.5 % (21.0-51.0); %Monocytes 8.3 % (0.0-10.0); %Neutrophils 82.2 % (42.0-75.0); Hemoglobin 10.3 g/dL (14.0-18.0); Mean Corpuscular HGB CONC 33.5 g/dL (32.0-36.0); Mean Corpuscular Hemoglobin 31.1 pg (27.0-31.0); Mean Platelet Volume 8.7 fL (7.4-10.4); Platelet Count 249 thou/uL (130-400); Red Blood Cell (RBC) Count 3.31 mill/uL (4.70-6.10); White Blood Cell (WBC) Count 10.4 thou/uL (4.8-10.8)
[2018-10-21 06:09] LABS: Anion Gap 12 mmol/L (10-20); BUN (Urea Nitrogen) 30 mg/dL (8.4-25.7); Calc. Creatinine Clearance 61 mL/min (70-130); Calcium 8.6 mg/dL (7.8-10.44); Carbon Dioxide 26 mmol/L (23-31); Chloride 99 mmol/L (98-107); Estimated GFR-MDRD 46; Glucose 169 mg/dL (83-110); Potassium 4.4 mmol/L (3.5-5.1); Sodium 133 mmol/L (136-145)
[2018-10-21] MEDS: traMADol HCl 50 MG TAB PO PRN (07:02)
--- NOTE | 2018-10-21 07:42 | RAD ---
XR Chest 1 View Portable History: Shortness of breath Comparison: Radiograph October 18, 2018 Findings: Mild interval size increase right layering pleural effusion with compressive atelectasis in both lung bases. Small to moderate left pleural effusion. No pneumothorax. Mild vascular calcifications of the aorta. Impression: Mild size increase pleural effusions.
[2018-10-21] MEDS: Mometasone/Formoterol 120 PUFF INHALER INH SCH ×2 (08:04→19:17)
[2018-10-21 09:58] VITALS: BMI 31.2
[2018-10-21] MEDS: Carvedilol 6.25 MG TAB PO SCH ×2 (10:06→20:16)
[2018-10-21] MEDS: Enoxaparin Sodium 40 MG/0.4 ML SYRINGE SC SCH (10:06)
[2018-10-21] MEDS: Oxybutynin ER 5 MG TAB PO SCH ×2 (10:06→20:17)
[2018-10-21] MEDS: Potassium Chloride 20 MEQ TAB PO SCH (10:06)
[2018-10-21] MEDS: Clopidogrel Bisulfate 75 MG TAB PO SCH (10:06)
[2018-10-21] MEDS: Furosemide 40 MG/4 ML VIAL SLOW IVP SCH (10:07)
--- NOTE | 2018-10-21 10:59 | PRG ---
DATE OF SERVICE: 10/21/2018 Mr. Andrade had an episode last night, where he began to have increasingly productive cough and demonstrated reduced O2 saturations. Subsequent ABG revealed profound hypoxemia, but no significant hypercarbia. He was transferred to the MICU for treatment of BiPAP. Chest x-ray really showed no significant new changes. He had the bilateral small pleural effusions, which we knew about before. I really believe most of his respiratory problems are related to his very sedentary habits. I rarely see him when he is not lying in bed. We had a PT working on with him and have so for several days. In the event, this morning, he is much more awake and alert. His initial blood gas done on a 36% inspired O2 showed a pO2 of 48.3, pCO2 of 36.9, and pH 7.41. Subsequent to BiPAP, a pO2 bryce to 55.8, pCO2 of 40.9, and a pH of 7.45 with an inspired O2 of 40%. As stated, this morning, he is awake and alert, in no distress. Job ID: [id number]
--- NOTE | 2018-10-21 12:24 | PQF ---
SERA CEBALLOS MIR IJEOMAANTONY Shah [id number] [facility]- B04 [id number] CLINICAL DOCUMENTATION IMPROVEMENT CLARIFICATION FORM: ICD-10 Updated PLEASE DO AN ADDENDUM TO THE PROGRESS NOTE WITH ANY DOCUMENTATION UPDATES OR ADDITIONS AND CARRY THROUGH TO DC SUMMARY. THANK YOU. DATE: 10/21/2018 ATTN:DR. Danielle QUINTANILLA Please exercise your independent, professional judgment in responding to the clarification form. Clinical indicators are provided on the bottom of this form for your review. Please check appropriate box(s): Acute Encephalopathy: Etiology: [ ] Hypertensive [ ] Metabolic [ ] Toxic [ ] Hepatic with Coma [ ] Hypoxic [ ] Septic [ ] Drug induced: [ ] Unspecified [X] in the setting of underlying dementia [ ] Other (please specify) [ ] Transient Alteration of Awareness [ ] Other diagnosis [ ] Unable to determine In addition, please specify: Present on Admission (POA): [X] Yes [ ] No [ ] Unable to determine For continuity of documentation, please document condition throughout progress notes and discharge summary. Thank You. CLINICAL INDICATORS - SIGNS / SYMPTOMS / LABS 10/18 H & P ( CROFT) 3) ACUTE ENCEPHALOPATHY 2/2 SEPSIS VS DELIRIUM WITH DEMENTIA , PER FAMILY HE IS NOT ACTING HIS USUAL SELF. HE HAS REFUSED TO GET OUT OF BED AND DENIED SHOWERING WHICH IS ABNORMAL FOR HIM. HE DENIES HISTORY OF DEMENTIA, STATING "I AM NOT CRAZY" AT THIS TIME, HE IS ORIENTED TO PERSON, PLACE AND TIME. HOWEVER, I AM , NOT FAMILIAR WITH HIS BASELINE. 10/19- 10/21 PN (SOCORRO) ACUTE ENCEPHALOPATHY 2/2 DELIRIUM ON CHRONIC DEMENTIA VS HYPONATREMIA VS INFECTIOUS (CAP VS UTI VS CELLULITIS) SUSPECT DELIRIUM VS INFECTIOUS, HYPONATREMIA IS MILD AT 129, A & O X 3 UPON PRESENTATION, RECENT DX OF DEMENTIA-UNSPECIFIED RISK: ADVANCED AGE (78) H & P/ CROFT HX DEMENTIA (H & P/CROFT) DX SEPSIS , UTI (CROFT) TREATMENTS: ZOSYN IV( 10/19-PRESENT) REORIENT PT NEEDED THANK YOU! ALISHA (This form is maintained as a part of the permanent medical record) 2014 [employer]. All Rights Reserved [email or web address] [email or web address] [phone] MTDD
[2018-10-21] MEDS: Atorvastatin Calcium 40 MG TAB PO SCH ×2 (12:32→20:17)
[2018-10-21] MEDS: Vancomycin HCl 1.5 GM in Sodium Chloride 0.9% 250 ML 300 ML IVPB SCH (17:59)
[2018-10-21] MEDS: Montelukast Sodium 10 mg Tablet PO SCH (20:16)
[2018-10-21] MEDS: Amlodipine 5 MG TAB PO SCH (20:17)
[2018-10-22 04:44] LABS: #Eosinphils 0.5 thou/uL (0.0-0.7); #Lymphocytes 0.6 thou/uL (1.20-3.40); #Monocytes 0.9 thou/uL (0.11-0.59); #Neutrophils 7.8 thou/uL (1.40-6.50); %Basophils 0.2 % (0.0-1.0); %Eosinophils 5.1 % (0.0-10.0); %Lymphocytes 6.1 % (21.0-51.0); %Neutrophils 79.6 % (42.0-75.0); Hemoglobin 10.4 g/dL (14.0-18.0); Mean Corpuscular HGB CONC 33.3 g/dL (32.0-36.0); Mean Corpuscular Volume 92.9 fL (78.0-98.0); Mean Platelet Volume 8.1 fL (7.4-10.4); Platelet Count 280 thou/uL (130-400); Red Blood Cell (RBC) Count 3.36 mill/uL (4.70-6.10); White Blood Cell (WBC) Count 9.8 thou/uL (4.8-10.8)
--- NOTE | 2018-10-22 04:52 | PDOC.FM ---
- Subjective Subjective: No complaints this morning. - Objective MAR Reviewed: Yes Vital Signs & Weight: Vital Signs (12 hours) Temp Pulse Resp BP Pulse Ox 10/22/18 03:40 95 10/22/18 03:31 97.6 F 10/22/18 00:09 96 10/21/18 23:44 20 95 10/21/18 23:38 97.2 F L 10/21/18 23:15 79 200/99 H 10/21/18 20:17 68 195/83 H 10/21/18 20:16 195/83 H 10/21/18 20:00 97 10/21/18 19:44 97.9 F 10/21/18 19:17 98 10/21/18 19:14 99 10/21/18 19:10 64 18 99 Weight Admit Weight 93.1 kg Weight 101.7 kg Most Recent Monitor Data Heart Rate from ECG 76 NIBP 161/52 NIBP BP-Mean 88 Respiration from ECG 16 SpO2 97 I&O: 10/20/18 10/21/18 10/22/18 06:59 06:59 06:59 Intake Total 1500 300 Output Total 200 525 Balance 1300 300 -525 Result Diagrams: 10/22/18 04:16 10/22/18 04:16 Phys Exam - Physical Examination Constitutional: NAD HEENT: moist MMs Neck: supple coarse crackles throughout Cardiovascular: RRR, no significant murmur Gastrointestinal: soft, non-tender, positive bowel sounds distended Musculoskeletal: pulses present, edema present 1+ Neurological: non-focal, moves all 4 limbs Lymphatic: no nodes Psychiatric: normal affect Skin: no rash Dx/Plan (1) Acute and chronic respiratory failure with hypoxia Code(s): J96.21 - ACUTE AND CHRONIC RESPIRATORY FAILURE WITH HYPOXIA Status: Acute (2) Sepsis Code(s): A41.9 - SEPSIS, UNSPECIFIED ORGANISM Status: Acute Qualifiers: Sepsis type: Escherichia coli Severe sepsis acute organ dysfunction type: encephalopathy Severe sepsis shock status: without septic shock (3) Acute kidney injury superimposed on CKD Code(s): N17.9 - ACUTE KIDNEY FAILURE, UNSPECIFIED; N18.9 - CHRONIC KIDNEY DISEASE, UNSPECIFIED Status: Acute (4) (HFpEF) heart failure with preserved ejection fraction Code(s): I50.30 - UNSPECIFIED DIASTOLIC (CONGESTIVE) HEART FAILURE Status: Acute Qualifiers: Heart failure chronicity: acute on chronic Qualified Code(s): I50.33 - Acute on chronic diastolic (congestive) heart failure (5) COPD (chronic obstructive pulmonary disease) Status: Chronic (6) Type 2 diabetes mellitus Status: Chronic Qualifiers: Diabetes mellitus termite inspector insulin use: without detention use - Plan Plan: Acute hypoxic respiratory failure 2/2 suspected CAP vs COPD exacerbation vs CHF - likely multifactorial -duonebs 3ml q4 hr - scheduled 10/21 -vanc and zosyn started in ED -unable to get 2 view CXR due to pt unable to stand up -In IMCU on high flow NC. Receiving 40mg Lasix daily. -ABG (10/21) after high flow was pO2 55.8 at 0515. -repeat CXR 10/21 showed mild interval worsening in rt pleural effusion, effusions present bilaterally -will consider starting Bipap, if he seems to be getting fatigued -pt was maintaing sats in high 90s overnight. Sepsis 2/2 CAP vs cellulitis vs UTI suspected CAP; no urinary sx but 4+bacteria, LE, wbc, and 0-3 squamous cells, sent for cx; mild erythema surrounding spider bite on right thigh, warm and tender taking clinda x4 days for this -wbc 16 and febrile to 101.2F upon presentation -given vanc, zosyn, and tylenol in the ER, and a 500ml bolus -pharmacy to dose vanc with fluctuating Cr -urine culture +for e.coli with MDR, susceptible to Zosyn, will cont. -BCx: Negative -WBC today 9.8, afebrile THOMAS on CKD -initial serum osmo 285 -avoid nephrotoxic drugs, renal dose abx -trend Cr: 2.55 > 2.07 > 1.47 > 1.20 Congestive Heart Failure -elevated BNP. Unsure of baseline. -strict I/O's -pt will be a tight fluid balance with immobility, poor PO intake, CHF -pt is receiving 40mg IV Lasix daily -Echo taken, waiting for results. Acute encephalopathy 2/2 delerium on chronic dementia vs hyponatremia vs infectious (CAP vs UTI vs cellulitis) suspect delerium vs infectious, as hyponatremia is mild at 132 -a&ox 3 upon presentation -recent diagnosis of dementia - unspecified -treating with abx for infection -continue to orient pt, pt not agitated currently DM II -holding pioglitizone for CHF and metformin for THOMAS -start mild SSI and hypoglycemia protocol COPD -continue home inhalers: Symbicort, DuoNeb, Atrovent -will provide DuoNebs here as needed. 3mL q 4hr prn. Hypertension -continue: Amlodipine 5mg po q day, Carvedilol 12.5mg po BID, Losartan 50mg q day, Clonidine patch 0.1mg q 7 days - changed 10/19 -hydralazine 50 mg tid and prn >180 Hyperlipidemia -continue Atorvastatin 40mg Right humeral shaft fracture -continue pain control with [place] 10-325, 1 tab q 8 hour. -PT/OT consulted. GERD -continue Protonix 40mg q day Condition: Stable VTE: SCD and plavix Diet: Heart healthy with 1800 FR Code status: DNI Dispo: Treating for both UTI and CAP with improving leukocytosis. In IMCU on high flow NC, will follow pulm recs to jordin.
[2018-10-22 05:03] LABS: Anion Gap 12 mmol/L (10-20); BUN (Urea Nitrogen) 21 mg/dL (8.4-25.7); Calc. Creatinine Clearance 74 mL/min (70-130); Calcium 8.9 mg/dL (7.8-10.44); Carbon Dioxide 26 mmol/L (23-31); Chloride 98 mmol/L (98-107); Estimated GFR-MDRD 59; Glucose 143 mg/dL (83-110); Potassium 4.1 mmol/L (3.5-5.1); Sodium 132 mmol/L (136-145)
[2018-10-22] MEDS: Piperacillin/Tazobactam 2.25 GM in Sodium Chloride 0.9% 100 ML IVPB SCH ×4 (05:23→23:41)
[2018-10-22] MEDS: Acetaminophen 500 MG TAB PO SCH ×4 (05:23→23:41)
[2018-10-22] MEDS: Mometasone/Formoterol 120 PUFF INHALER INH SCH ×2 (07:55→19:07)
[2018-10-22] MEDS: Losartan 25 MG TAB PO SCH (08:49)
[2018-10-22] MEDS: Oxybutynin ER 5 MG TAB PO SCH (08:49)
[2018-10-22] MEDS: Potassium Chloride 20 MEQ TAB PO SCH (08:49)
[2018-10-22] MEDS: Clopidogrel Bisulfate 75 MG TAB PO SCH (08:49)
[2018-10-22] MEDS: Carvedilol 6.25 MG TAB PO SCH ×2 (08:49→20:11)
[2018-10-22] MEDS: Enoxaparin Sodium 40 MG/0.4 ML SYRINGE SC SCH (08:50)
[2018-10-22] MEDS: Furosemide 40 MG/4 ML VIAL SLOW IVP SCH (08:50)
[2018-10-22] MEDS ORDERED: Simethicone Chewable 80 MG TAB PO SCH (11:24)
--- NOTE | 2018-10-22 11:34 | PRG ---
DATE OF SERVICE: 10/22/2018 Mr. Andrade is sitting quietly in bed with no distress. His abdomen seems a bit distended, however exam coburn, it is soft, highly tympanic suggesting trapping of gas. I would recommend that we perhaps add some simethicone. In the event clinically, he remains stable, still on his CPAP. He is on antibiotics for his E coli sepsis. We will continue to follow with the Inventory Analyst. Job ID: [id number]
[2018-10-22] MEDS: Vancomycin HCl 1.5 GM in Sodium Chloride 0.9% 250 ML 300 ML IVPB SCH (16:15)
[2018-10-22] MEDS: hydrALAZINE 25 MG TAB PO SCH ×2 (16:15→20:11)
[2018-10-22] MEDS: Amlodipine 5 MG TAB PO SCH (20:11)
[2018-10-22] MEDS: Montelukast Sodium 10 mg Tablet PO SCH (20:11)
[2018-10-22] MEDS: Atorvastatin Calcium 40 MG TAB PO SCH (20:11)
[2018-10-23] MEDS: Acetaminophen 500 MG TAB PO SCH ×4 (04:49→23:35)
[2018-10-23] MEDS: traMADol HCl 50 MG TAB PO PRN (04:50)
[2018-10-23] MEDS: Piperacillin/Tazobactam 2.25 GM in Sodium Chloride 0.9% 100 ML IVPB SCH ×4 (04:50→23:56)
[2018-10-23 05:04] LABS: #Eosinphils 0.4 thou/uL (0.0-0.7); #Lymphocytes 0.7 thou/uL (1.20-3.40); #Monocytes 0.9 thou/uL (0.11-0.59); #Neutrophils 8.2 thou/uL (1.40-6.50); %Basophils 0.2 % (0.0-1.0); %Lymphocytes 7.2 % (21.0-51.0); %Neutrophils 79.6 % (42.0-75.0); Hemoglobin 10.2 g/dL (14.0-18.0); Mean Corpuscular HGB CONC 32.8 g/dL (32.0-36.0); Mean Corpuscular Hemoglobin 30.9 pg (27.0-31.0); Mean Corpuscular Volume 94.2 fL (78.0-98.0); Mean Platelet Volume 7.9 fL (7.4-10.4); Platelet Count 311 thou/uL (130-400); Red Blood Cell (RBC) Count 3.31 mill/uL (4.70-6.10); White Blood Cell (WBC) Count 10.2 thou/uL (4.8-10.8)
[2018-10-23 05:20] LABS: Anion Gap 13 mmol/L (10-20); BUN (Urea Nitrogen) 19 mg/dL (8.4-25.7); Calc. Creatinine Clearance 67 mL/min (70-130); Calcium 9.3 mg/dL (7.8-10.44); Carbon Dioxide 27 mmol/L (23-31); Chloride 97 mmol/L (98-107); Estimated GFR-MDRD 57; Glucose 149 mg/dL (83-110); Sodium 133 mmol/L (136-145)
--- NOTE | 2018-10-23 06:01 | PDOC.FM ---
- Subjective Subjective: Coughing up thick mucus this morning. - Objective MAR Reviewed: Yes Vital Signs & Weight: Vital Signs (12 hours) Temp Pulse BP Pulse Ox 10/23/18 04:00 98.2 F 10/22/18 23:30 98.0 F 10/22/18 22:16 91 L 10/22/18 20:13 97.3 F L 10/22/18 20:11 75 122/59 L 10/22/18 20:00 92 L 10/22/18 19:10 99 10/22/18 19:07 99 10/22/18 19:06 99 Weight Admit Weight 93.1 kg Weight 94.9 kg Most Recent Monitor Data Heart Rate from ECG 89 NIBP 146/68 NIBP BP-Mean 94 Respiration from ECG 21 SpO2 91 I&O: 10/21/18 10/22/18 10/23/18 06:59 06:59 06:59 Intake Total 323 013 1385 Output Total 825 300 Balance 300 -475 924 Result Diagrams: 10/23/18 04:41 10/23/18 04:40 Phys Exam - Physical Examination Constitutional: NAD HEENT: moist MMs Neck: supple coarse crackles throughout Cardiovascular: RRR, no significant murmur Gastrointestinal: soft distended Musculoskeletal: no edema, pulses present Neurological: non-focal, moves all 4 limbs Deviation from normal: A&O x2 Skin: no rash Dx/Plan (1) Acute and chronic respiratory failure with hypoxia Code(s): J96.21 - ACUTE AND CHRONIC RESPIRATORY FAILURE WITH HYPOXIA Status: Acute (2) Sepsis Code(s): A41.9 - SEPSIS, UNSPECIFIED ORGANISM Status: Acute Qualifiers: Sepsis type: Escherichia coli Severe sepsis acute organ dysfunction type: encephalopathy Severe sepsis shock status: without septic shock (3) Acute kidney injury superimposed on CKD Code(s): N17.9 - ACUTE KIDNEY FAILURE, UNSPECIFIED; N18.9 - CHRONIC KIDNEY DISEASE, UNSPECIFIED Status: Acute (4) (HFpEF) heart failure with preserved ejection fraction Code(s): I50.30 - UNSPECIFIED DIASTOLIC (CONGESTIVE) HEART FAILURE Status: Acute Qualifiers: Heart failure chronicity: acute on chronic Qualified Code(s): I50.33 - Acute on chronic diastolic (congestive) heart failure (5) COPD (chronic obstructive pulmonary disease) Status: Chronic (6) Type 2 diabetes mellitus Status: Chronic Qualifiers: Diabetes mellitus terminal operations manager insulin use: without skilled nursing use - Plan Plan: Acute hypoxic respiratory failure 2/2 suspected CAP vs COPD exacerbation vs CHF - likely multifactorial -duonebs 3ml q4 hr - scheduled 10/21 -vanc and zosyn started in ED -unable to get 2 view CXR due to pt unable to stand up -In IMCU on 3L NC. Receiving 40mg Lasix daily. -ABG (10/21) after high flow was pO2 55.8 at 0515. -repeat CXR 10/21 showed mild interval worsening in rt pleural effusion, effusions present bilaterally -will consider starting Bipap, if he seems to be getting fatigued -pt was maintaing sats in high 90s overnight. Sepsis 2/2 CAP vs cellulitis vs UTI suspected CAP; no urinary sx but 4+bacteria, LE, wbc, and 0-3 squamous cells, sent for cx; mild erythema surrounding spider bite on right thigh, warm and tender taking clinda x4 days for this -wbc 16 and febrile to 101.2F upon presentation -given vanc, zosyn, and tylenol in the ER, and a 500ml bolus -pharmacy to dose vanc with fluctuating Cr -urine culture +for e.coli with MDR, susceptible to Zosyn, will cont. -BCx: Negative -WBC today 10.2, afebrile THOMAS on CKD -initial serum osmo 285 -avoid nephrotoxic drugs, renal dose abx -trend Cr: 2.55 > 2.07 > 1.47 > 1.20 > 1.24 Congestive Heart Failure -elevated BNP. Unsure of baseline. -strict I/O's -pt will be a tight fluid balance with immobility, poor PO intake, CHF -pt is receiving 40mg IV Lasix daily -Echo taken, waiting for results. Acute encephalopathy 2/2 delerium on chronic dementia vs hyponatremia vs infectious (CAP vs UTI vs cellulitis) suspect delerium vs infectious, as hyponatremia is mild at 132 -a&ox 3 upon presentation -recent diagnosis of dementia - unspecified -treating with abx for infection -continue to orient pt, pt not agitated currently -Respiratory therapy coming by for incentive spirometry DM II -holding pioglitizone for CHF and metformin for THOMAS -start mild SSI and hypoglycemia protocol COPD -continue home inhalers: Symbicort, DuoNeb, Atrovent -will provide DuoNebs here as needed. 3mL q 4hr prn. Hypertension -continue: Amlodipine 5mg po q day, Carvedilol 12.5mg po BID, Losartan 50mg q day, Clonidine patch 0.1mg q 7 days - changed 10/19 -hydralazine 50 mg tid and prn >180 -BP improving Hyperlipidemia -continue Atorvastatin 40mg Right humeral shaft fracture -continue pain control with [place] 10-325, 1 tab q 8 hour. -PT/OT consulted. -Will consult Ortho tomorrow on 10/24 GERD -continue Protonix 40mg q day Condition: Stable VTE: SCD and plavix Diet: Heart healthy with 1800 FR Code status: DNI Dispo: Treating for both UTI and CAP with improving leukocytosis. In IMCU will evaluate him on 3L.
[2018-10-23] MEDS: Mometasone/Formoterol 120 PUFF INHALER INH SCH ×2 (07:42→19:09)
[2018-10-23] MEDS: hydrALAZINE 25 MG TAB PO SCH ×3 (08:55→20:11)
[2018-10-23] MEDS: Carvedilol 6.25 MG TAB PO SCH ×2 (08:56→20:10)
[2018-10-23] MEDS: Tamsulosin HCl 0.4 MG CAP PO SCH (08:56)
[2018-10-23] MEDS: Potassium Chloride 20 MEQ TAB PO SCH (08:57)
[2018-10-23] MEDS: Clopidogrel Bisulfate 75 MG TAB PO SCH (08:57)
[2018-10-23] MEDS: Losartan 25 MG TAB PO SCH (08:57)
[2018-10-23] MEDS: Enoxaparin Sodium 40 MG/0.4 ML SYRINGE SC SCH (08:58)
[2018-10-23] MEDS: Furosemide 40 MG/4 ML VIAL SLOW IVP SCH (08:58)
--- NOTE | 2018-10-23 10:45 | PRG ---
DATE OF SERVICE: 10/23/2018 Mr. Andrade is awake, alert, sitting upright in bed. He offers no new complaints. We are continuing treatment for his urinary tract infection and community-acquired pneumonia with improvements in his white count. He is on 3 L and maintaining adequate O2 saturations. He is still very nonambulatory despite encouraging him to at least at the bedside chair. We will continue to have PT work with him. We will restart incentive spirometry. Job ID: [id number]
[2018-10-23 16:32] LABS: Vancomycin, Trough 19.1 ug/mL
[2018-10-23] MEDS: Vancomycin HCl 1.5 GM in Sodium Chloride 0.9% 250 ML 300 ML IVPB SCH (17:05)
[2018-10-23] MEDS: hydrALAZINE 20 MG/ML VIAL SLOW IVP PRN (18:05)
[2018-10-23] MEDS: Montelukast Sodium 10 mg Tablet PO SCH (20:12)
[2018-10-23] MEDS: Atorvastatin Calcium 40 MG TAB PO SCH (20:12)
[2018-10-23] MEDS: Amlodipine 5 MG TAB PO SCH (20:12)
[2018-10-23] MEDS: guaiFENesin/DM ER PO SCH (20:36)
[2018-10-23] MEDS: HYDROcodone/Acetaminophen 5/325 mg Tablet PO PRN (23:28)
[2018-10-24] MEDS: Piperacillin/Tazobactam 2.25 GM VIAL ONE ×2 (00:02→00:04)
[2018-10-24] MEDS: Simethicone Chewable 80 MG TAB PO PRN ×2 (04:10→09:20)
--- NOTE | 2018-10-24 05:25 | PDOC.FM ---
- Subjective Subjective: Pt denies any complaints this morning. Denies any shortness of breath and feels he could be off of the oxygen. States his right arm pain in controlled and only exacerbated with movement. - Objective Vital Signs & Weight: Vital Signs (12 hours) Temp Pulse Resp BP BP Pulse Ox 10/24/18 04:10 96 10/24/18 04:00 98.1 F 76 20 168/76 H 97 10/24/18 00:00 98.2 F 88 18 118/70 97 10/23/18 21:00 97.9 F 74 20 171/61 H 97 10/23/18 20:12 68 201/80 H 10/23/18 20:11 68 201/80 H 10/23/18 20:10 201/80 H 10/23/18 20:00 97 10/23/18 19:09 93 L 10/23/18 19:08 93 L 10/23/18 18:05 68 178/77 H Weight Admit Weight 93.1 kg Weight 94.9 kg Most Recent Monitor Data Heart Rate from ECG 88 NIBP 168/76 NIBP BP-Mean 106 Respiration from ECG 21 SpO2 96 I&O: 10/22/18 10/23/18 10/24/18 06:59 06:59 06:59 Intake Total 350 1644 1224 Output Total 396 161 8773 Balance -475 944 74 Result Diagrams: 10/24/18 05:49 10/24/18 05:49 Phys Exam - Physical Examination Constitutional: NAD HEENT: PERRLA, moist MMs Neck: no JVD, full ROM Respiratory: no wheezing, no rhonchi few diffuse rales Cardiovascular: RRR, no significant murmur Gastrointestinal: soft, non-tender, no distention Musculoskeletal: no edema, pulses present Neurological: non-focal, moves all 4 limbs Psychiatric: normal affect Deviation from normal: Oriented to person and place, was off on date by 1 day Skin: no rash, cap refill <2 seconds Dx/Plan (1) Acute and chronic respiratory failure with hypoxia Code(s): J96.21 - ACUTE AND CHRONIC RESPIRATORY FAILURE WITH HYPOXIA Status: Acute (2) Sepsis Code(s): A41.9 - SEPSIS, UNSPECIFIED ORGANISM Status: Acute Qualifiers: Sepsis type: Escherichia coli Severe sepsis acute organ dysfunction type: encephalopathy Severe sepsis shock status: without septic shock (3) Acute kidney injury superimposed on CKD Code(s): N17.9 - ACUTE KIDNEY FAILURE, UNSPECIFIED; N18.9 - CHRONIC KIDNEY DISEASE, UNSPECIFIED Status: Acute (4) (HFpEF) heart failure with preserved ejection fraction Code(s): I50.30 - UNSPECIFIED DIASTOLIC (CONGESTIVE) HEART FAILURE Status: Acute Qualifiers: Heart failure chronicity: acute on chronic Qualified Code(s): I50.33 - Acute on chronic diastolic (congestive) heart failure (5) COPD (chronic obstructive pulmonary disease) Status: Chronic (6) Type 2 diabetes mellitus Status: Chronic Qualifiers: Diabetes mellitus intermediate accountant insulin use: without intermediate accountant use - Plan Plan: Acute hypoxic respiratory failure 2/2 suspected CAP vs COPD exacerbation vs CHF - likely multifactorial -duonebs 3ml q4 hr - scheduled 10/21 -vanc and zosyn started in ED -unable to get 2 view CXR due to pt unable to stand up -In IMCU on 3L NC. R -ABG (10/21) after high flow was pO2 55.8 at 0515. -repeat CXR 10/21 showed mild interval worsening in rt pleural effusion, effusions present bilaterally -respiratory therapy coming by for incentive spirometry -weaning O2; 96% on 2L NC this am -repeat CXR today Sepsis 2/2 CAP vs cellulitis vs UTI suspected CAP; no urinary sx but 4+bacteria, LE, wbc, and 0-3 squamous cells, sent for cx; mild erythema surrounding spider bite on right thigh, warm and tender taking clinda x4 days for this -wbc 16 and febrile to 101.2F upon presentation -given vanc, zosyn, and tylenol in the ER, and a 500ml bolus -pharmacy to dose vanc with fluctuating Cr -urine culture +for e.coli with MDR, susceptible to Zosyn, will cont. -BCx: Negative -WBC today 8.9, afebrile THOMAS on CKD -initial serum osmo 285 -avoid nephrotoxic drugs, renal dose abx -trend Cr: 2.55 > 2.07 > 1.47 > 1.20 > 1.24 > 1.26 Congestive Heart Failure -elevated BNP. Unsure of baseline. -strict I/O's -pt will be a tight fluid balance with immobility, poor PO intake, CHF -pt is receiving 40mg IV Lasix daily -Echo - EF 60-65%, mild concentric LVH Acute encephalopathy 2/2 delerium on chronic dementia vs hyponatremia vs infectious (CAP vs UTI vs cellulitis) suspect delerium vs infectious, as hyponatremia is mild at 132 -a&ox 3 upon presentation -recent diagnosis of dementia - unspecified -treating with abx for infection -continue to orient pt, pt not agitated currently DM II -holding pioglitizone for CHF and metformin for THOMAS -start mild SSI and hypoglycemia protocol COPD -continue home inhalers: Symbicort, DuoNeb, Atrovent -will provide DuoNebs here as needed. 3mL q 4hr prn. Hypertension -continue: Amlodipine 5mg po q day, Carvedilol 12.5mg po BID, Losartan 50mg q day, Clonidine patch 0.1mg q 7 days - changed 10/19 -hydralazine 50 mg tid and prn >180 -BP improving Hyperlipidemia -continue Atorvastatin 40mg Right humeral shaft fracture -continue pain control with [place] 10-325, 1 tab q 8 hour. -PT/OT consulted. -ortho consult today - PT requesting recommendations for exercises GERD -continue Protonix 40mg q day Condition: Stable VTE: SCD and plavix Diet: Heart healthy with 1800 FR Code status: DNI Dispo: Repeat CXR with aspiration risk and increased coughing. Transfer to medical floor today. Awaiting rehab placement. Addendum - Attending - Attending Attestation Date/Time: 10/24/182018 I personally evaluated the patient and discussed the management with Dr. Chakraborty at 1005. I agree with the History, Examination, Assessment and Plan documented above with any addition or exceptions noted below. Acute hypoxic resp failure- improved- wean O2 to keep sats >92% Chronic cough- has completed vanc/zosyn x 6 days. Repeat cxr neg for infiltrate. Multidrug resistant Ecoli UTI- s/p 6 days of IV zosyn- d/c abx R humeral shaft fracture- ortho PT recs HTN, uncontrolled- added scheduled hydralazine yesterday- will titrate for goal bp of <150/90. Xfer to medical floor- rehab or SNF eval
[2018-10-24] MEDS: Piperacillin/Tazobactam 2.25 GM in Sodium Chloride 0.9% 100 ML IVPB SCH ×2 (06:06→15:59)
[2018-10-24] MEDS: Acetaminophen 500 MG TAB PO SCH ×3 (06:09→17:54)
[2018-10-24 06:11] LABS: #Eosinphils 0.4 thou/uL (0.0-0.7); #Lymphocytes 0.5 thou/uL (1.20-3.40); #Monocytes 0.9 thou/uL (0.11-0.59); #Neutrophils 7.1 thou/uL (1.40-6.50); %Basophils 0.4 % (0.0-1.0); %Eosinophils 4.4 % (0.0-10.0); %Lymphocytes 5.7 % (21.0-51.0); %Monocytes 10.1 % (0.0-10.0); %Neutrophils 79.5 % (42.0-75.0); Hemoglobin 10.5 g/dL (14.0-18.0); Mean Corpuscular HGB CONC 32.8 g/dL (32.0-36.0); Mean Corpuscular Hemoglobin 30.9 pg (27.0-31.0); Mean Corpuscular Volume 94.1 fL (78.0-98.0); Mean Platelet Volume 7.8 fL (7.4-10.4); Platelet Count 331 thou/uL (130-400); Red Blood Cell (RBC) Count 3.41 mill/uL (4.70-6.10); White Blood Cell (WBC) Count 8.9 thou/uL (4.8-10.8)
[2018-10-24 06:25] LABS: Anion Gap 12 mmol/L (10-20); BUN (Urea Nitrogen) 19 mg/dL (8.4-25.7); Calc. Creatinine Clearance 66 mL/min (70-130); Calcium 9.1 mg/dL (7.8-10.44); Carbon Dioxide 25 mmol/L (23-31); Chloride 99 mmol/L (98-107); Estimated GFR-MDRD 55; Glucose 117 mg/dL (83-110); Potassium 3.7 mmol/L (3.5-5.1); Sodium 132 mmol/L (136-145)
[2018-10-24] MEDS: Mometasone/Formoterol 120 PUFF INHALER INH SCH ×2 (07:48→19:06)
[2018-10-24] MEDS: Enoxaparin Sodium 40 MG/0.4 ML SYRINGE SC SCH (09:04)
[2018-10-24] MEDS: Furosemide 40 MG/4 ML VIAL SLOW IVP SCH (09:05)
[2018-10-24] MEDS: Tamsulosin HCl 0.4 MG CAP PO SCH (09:05)
[2018-10-24] MEDS: hydrALAZINE 25 MG TAB PO SCH ×3 (09:05→21:23)
[2018-10-24] MEDS: Losartan 25 MG TAB PO SCH (09:05)
[2018-10-24] MEDS: Carvedilol 6.25 MG TAB PO SCH ×2 (09:06→21:24)
[2018-10-24] MEDS: Clopidogrel Bisulfate 75 MG TAB PO SCH (09:06)
[2018-10-24] MEDS: Potassium Chloride 20 MEQ TAB PO SCH (09:06)
[2018-10-24] MEDS: guaiFENesin/DM ER PO SCH ×2 (11:23→21:24)
--- NOTE | 2018-10-24 12:13 | RAD ---
SINGLE VIEW CHEST: Date: 10/24/18 COMPARISON: 12/25/17, 10/21/18. HISTORY: Concern for aspiration with cough. FINDINGS: Single view of the chest shows normal sized cardiomediastinal silhouette with atherosclerotic calcifi cations in the aorta. Increased interstitial lung markings are present. There is elevation of the rig ht hemidiaphragm. There is no evidence of consolidation, mass, or pleural effusion. IMPRESSION: Stable exam. POS: [facility]
--- NOTE | 2018-10-24 17:16 | EKG ---
Test Reason : Blood Pressure : / mmHG Vent. Rate : 070 BPM Atrial Rate : 070 BPM P-R Int : 164 ms QRS Dur : 078 ms QT Int : 374 ms P-R-T Axes : 000 013 041 degrees QTc Int : 403 ms Normal sinus rhythm Normal ECG Confirmed by JOSE LONG ([id number]), news assignment editor VILMA THOMAS ([id number]) on 10/24/2018 5:15:40 PM Referred By: Confirmed By:JOSE LONG
[2018-10-24] MEDS: Amlodipine 5 MG TAB PO SCH (21:23)
[2018-10-24] MEDS: Atorvastatin Calcium 40 MG TAB PO SCH (21:24)
[2018-10-24] MEDS: Montelukast Sodium 10 mg Tablet PO SCH (21:24)
[2018-10-25] MEDS ORDERED: Famotidine 20 MG TAB PO PRN (00:17)
[2018-10-25] MEDS: Acetaminophen 500 MG TAB PO SCH ×4 (00:59→17:51)
[2018-10-25] MEDS: hydrALAZINE 20 MG/ML VIAL SLOW IVP PRN (02:16)
[2018-10-25 05:49] LABS: Anion Gap 14 mmol/L (10-20); BUN (Urea Nitrogen) 15 mg/dL (8.4-25.7); Calc. Creatinine Clearance 75 mL/min (70-130); Calcium 8.6 mg/dL (7.8-10.44); Carbon Dioxide 21 mmol/L (23-31); Chloride 101 mmol/L (98-107); Estimated GFR-MDRD 64; Glucose 113 mg/dL (83-110); Potassium 3.5 mmol/L (3.5-5.1); Sodium 132 mmol/L (136-145)
[2018-10-25 06:16] LABS: Band 3 % (5-11); Hemoglobin 9.8 g/dL (14.0-18.0); Lymphocytes 17 % (21-51); MDiff Complete? YES; Mean Corpuscular HGB CONC 32.3 g/dL (32.0-36.0); Mean Corpuscular Hemoglobin 30.5 pg (27.0-31.0); Mean Corpuscular Volume 94.5 fL (78.0-98.0); Mean Platelet Volume 7.8 fL (7.4-10.4); Monocytes 9 % (0-10); Myelocyte 2 % (0-0); Neutrophil 69 % (42-75); Platelet Count 315 thou/uL (130-400); RBC Distribution Width 19.4 % (11.5-14.5); Red Blood Cell (RBC) Count 3.21 mill/uL (4.70-6.10)
--- NOTE | 2018-10-25 06:57 | PDOC.FM ---
- Subjective Subjective: Pt is doing well this morning. Denies any complaints. Is currently off oxygen and denies any shortness of breath, lightheadedness, or dizziness. Continues to have questions about his fractured arm that he voices daily, I reminded him that the arm has already been imaged and he has seen an orthopedist and we are following his recommendations currently. - Objective Vital Signs & Weight: Vital Signs (12 hours) Temp Pulse Resp BP BP BP Pulse Ox 10/25/18 05:40 98.1 F 87 18 152/62 H 93 L 10/25/18 02:35 169/76 H 10/25/18 02:23 82 16 91 L 10/25/18 02:16 86 199/75 H 10/25/18 00:00 97.7 F 89 18 182/73 H 91 L 10/24/18 23:11 84 16 92 L 10/24/18 21:24 179/74 H 10/24/18 21:23 74 179/74 H 10/24/18 20:00 97.3 F L 78 18 179/74 H 94 L 10/24/18 19:02 80 16 94 L Weight Admit Weight 93.1 kg Weight 94.9 kg Most Recent Monitor Data Heart Rate from ECG 89 NIBP 158/66 NIBP BP-Mean 96 Respiration from ECG 24 SpO2 94 I&O: 10/23/18 10/24/18 10/25/18 06:59 06:59 06:59 Intake Total 1644 1874 630 Output Total 700 1830 250 Balance 944 44 380 Result Diagrams: 10/25/18 05:01 10/25/18 05:01 Phys Exam - Physical Examination Constitutional: NAD HEENT: PERRLA, moist MMs Neck: no JVD, full ROM Respiratory: no wheezing Mild crackles in the bases bilaterally Cardiovascular: RRR, no significant murmur, no rub Gastrointestinal: soft, non-tender, no distention, positive bowel sounds Musculoskeletal: no edema, pulses present right arm in sling Neurological: non-focal Psychiatric: normal affect Deviation from normal: oriented to person and place Skin: no rash, cap refill <2 seconds Deviation from normal: Bruising to rt upper arm, swelling of right hand Dx/Plan (1) Acute and chronic respiratory failure with hypoxia Code(s): J96.21 - ACUTE AND CHRONIC RESPIRATORY FAILURE WITH HYPOXIA Status: Acute (2) Sepsis Code(s): A41.9 - SEPSIS, UNSPECIFIED ORGANISM Status: Acute Qualifiers: Sepsis type: Escherichia coli Severe sepsis acute organ dysfunction type: encephalopathy Severe sepsis shock status: without septic shock (3) Acute kidney injury superimposed on CKD Code(s): N17.9 - ACUTE KIDNEY FAILURE, UNSPECIFIED; N18.9 - CHRONIC KIDNEY DISEASE, UNSPECIFIED Status: Acute (4) (HFpEF) heart failure with preserved ejection fraction Code(s): I50.30 - UNSPECIFIED DIASTOLIC (CONGESTIVE) HEART FAILURE Status: Acute Qualifiers: Heart failure chronicity: acute on chronic Qualified Code(s): I50.33 - Acute on chronic diastolic (congestive) heart failure (5) COPD (chronic obstructive pulmonary disease) Status: Chronic (6) Type 2 diabetes mellitus Status: Chronic Qualifiers: Diabetes mellitus long wall mining machine tender insulin use: without long wall mining machine tender use - Plan Plan: Acute hypoxic respiratory failure 2/2 suspected CAP vs COPD exacerbation vs CHF - likely multifactorial -duonebs 3ml q4 hr prn -vanc and zosyn started in ED -unable to get 2 view CXR due to pt unable to stand up -repeat CXR 10/21 showed mild interval worsening in rt pleural effusion, effusions present bilaterally -respiratory therapy coming by for incentive spirometry -weaning O2; 94% on RA today -repeat CXR yesterday showed stable exam with resolution of pleural effusions Sepsis 2/2 CAP vs cellulitis vs UTI suspected CAP; no urinary sx but 4+bacteria, LE, wbc, and 0-3 squamous cells, sent for cx; mild erythema surrounding spider bite on right thigh, warm and tender taking clinda x4 days for this -Vanc and zosyn DC'd yesterday -BCx: Negative -WBC today 9.8, afebrile Congestive Heart Failure -elevated BNP. Unsure of baseline. -strict I/O's -pt will be a tight fluid balance with immobility, poor PO intake, CHF -pt is receiving 40mg IV Lasix daily -Echo - EF 60-65%, mild concentric LVH Acute encephalopathy 2/2 delerium on chronic dementia vs hyponatremia vs infectious (CAP vs UTI vs cellulitis) suspect delerium vs infectious, as hyponatremia is mild at 132 -a&ox 3 upon presentation -recent diagnosis of dementia - unspecified -continue to orient pt, pt not agitated currently DM II -holding pioglitizone for CHF and metformin for THOMAS -start mild SSI and hypoglycemia protocol COPD -continue home inhalers: Symbicort, DuoNeb, Atrovent -will provide DuoNebs here as needed. 3mL q 4hr prn. Hypertension -continue: Amlodipine 10mg (increased from 5) po q day, Carvedilol 12.5mg po BID , Losartan 50mg q day, Clonidine patch 0.1mg q 7 days - changed 10/19 -hydralazine 50 mg tid and prn >180 -BP improving Hyperlipidemia -continue Atorvastatin 40mg Right humeral shaft fracture -continue pain control with [place] 10-325, 1 tab q 8 hour. -PT/OT consulted. -ortho consulted - gave recs for PT GERD -continue Protonix 40mg q day Condition: Stable VTE: SCD and plavix Diet: Heart healthy with 1800 FR Code status: DNI Dispo: Pt is off of supplemental O2 at this time. Continue to strengthen and improve gait. Awaiting rehab placement. Addendum - Attending - Attending Attestation Date/Time: 10/25/187 I personally evaluated the patient and discussed the management with Dr. Chakraborty at 0955 am I agree with the History, Examination, Assessment and Plan documented above with any addition or exceptions noted below. Much improved. Off O2, sitting up in bed, tolerating diet. Continue PT and await rehab placement
[2018-10-25] MEDS: Mometasone/Formoterol 120 PUFF INHALER INH SCH ×2 (07:54→19:19)
[2018-10-25] MEDS ORDERED: Amlodipine 5 MG TAB PO SCH (08:36)
[2018-10-25] MEDS: Enoxaparin Sodium 40 MG/0.4 ML SYRINGE SC SCH (08:53)
[2018-10-25] MEDS: Losartan 25 MG TAB PO SCH (08:54)
[2018-10-25] MEDS: Tamsulosin HCl 0.4 MG CAP PO SCH (08:54)
[2018-10-25] MEDS: Potassium Chloride 20 MEQ TAB PO SCH (08:54)
[2018-10-25] MEDS: Clopidogrel Bisulfate 75 MG TAB PO SCH (08:54)
[2018-10-25] MEDS: guaiFENesin/DM ER PO SCH ×2 (08:55→21:33)
[2018-10-25] MEDS: hydrALAZINE 25 MG TAB PO SCH ×3 (08:55→21:34)
[2018-10-25] MEDS: Carvedilol 6.25 MG TAB PO SCH ×2 (08:55→21:34)
[2018-10-25] MEDS: Furosemide 40 MG/4 ML VIAL SLOW IVP SCH (08:56)
[2018-10-25] MEDS: Montelukast Sodium 10 mg Tablet PO SCH (21:33)
[2018-10-25] MEDS: Atorvastatin Calcium 40 MG TAB PO SCH (21:34)
[2018-10-26] MEDS: Acetaminophen 500 MG TAB PO SCH ×3 (00:04→11:31)
--- NOTE | 2018-10-26 06:24 | PDOC.FM ---
- Subjective Subjective: Pt continues to do well today. He still requires no supplemental O2. He denies any shortness of breath, fever, chills, chest pain, lightheadedness, or dizziness. He is looking forward [facility] - Objective Vital Signs & Weight: Vital Signs (12 hours) Temp Pulse Resp BP BP Pulse Ox 10/26/18 04:00 97.7 F 64 18 153/65 H 97 10/26/18 00:00 97.6 F 77 20 159/77 H 96 10/25/18 21:34 84 128/71 10/25/18 21:33 84 128/71 10/25/18 20:00 97.6 F 84 18 128/71 95 10/25/18 19:19 70 16 95 Weight Admit Weight 93.1 kg Weight 94.9 kg Most Recent Monitor Data Heart Rate from ECG 89 NIBP 158/66 NIBP BP-Mean 96 Respiration from ECG 24 SpO2 94 I&O: 10/24/18 10/25/18 10/26/18 06:59 06:59 06:59 Intake Total 1874 630 800 Output Total 1830 250 Balance 44 380 800 Result Diagrams: 10/26/18 05:51 10/26/18 05:51 Phys Exam - Physical Examination Constitutional: NAD HEENT: PERRLA, moist MMs Neck: no JVD, full ROM Some diffuse fine crackles, upper airway secretions cleared with cough Cardiovascular: RRR, no significant murmur Gastrointestinal: soft, non-tender, no distention, positive bowel sounds Musculoskeletal: no edema, pulses present Neurological: non-focal, moves all 4 limbs Psychiatric: normal affect, A&O x 3 Skin: no rash, cap refill <2 seconds Dx/Plan (1) Acute and chronic respiratory failure with hypoxia Code(s): J96.21 - ACUTE AND CHRONIC RESPIRATORY FAILURE WITH HYPOXIA Status: Acute (2) Sepsis Code(s): A41.9 - SEPSIS, UNSPECIFIED ORGANISM Status: Acute Qualifiers: Sepsis type: Escherichia coli Severe sepsis acute organ dysfunction type: encephalopathy Severe sepsis shock status: without septic shock (3) Acute kidney injury superimposed on CKD Code(s): N17.9 - ACUTE KIDNEY FAILURE, UNSPECIFIED; N18.9 - CHRONIC KIDNEY DISEASE, UNSPECIFIED Status: Acute (4) (HFpEF) heart failure with preserved ejection fraction Code(s): I50.30 - UNSPECIFIED DIASTOLIC (CONGESTIVE) HEART FAILURE Status: Acute Qualifiers: Heart failure chronicity: acute on chronic Qualified Code(s): I50.33 - Acute on chronic diastolic (congestive) heart failure (5) COPD (chronic obstructive pulmonary disease) Status: Chronic (6) Type 2 diabetes mellitus Status: Chronic Qualifiers: Diabetes mellitus superintendent terminal insulin use: without fdc use - Plan Plan: Acute hypoxic respiratory failure - resolved 2/2 suspected CAP vs COPD exacerbation vs CHF - likely multifactorial -duonebs 3ml q4 hr prn -vanc and zosyn started in ED -unable to get 2 view CXR due to pt unable to stand up -repeat CXR 10/21 showed mild interval worsening in rt pleural effusion, effusions present bilaterally -respiratory therapy coming by for incentive spirometry -repeat CXR 10/24 showed stable exam with resolution of pleural effusions -pt is off supplemental O2 currently, 97% on RA Sepsis 2/2 CAP vs cellulitis vs UTI suspected CAP; no urinary sx but 4+bacteria, LE, wbc, and 0-3 squamous cells, sent for cx; mild erythema surrounding spider bite on right thigh, warm and tender taking clinda x4 days for this -Vanc and zosyn DC'd yesterday -BCx: Negative -Leukocytosis resolved Congestive Heart Failure -Initially elevated BNP. Unsure of baseline. -strict I/O's -pt will be a tight fluid balance with immobility, poor PO intake, CHF -pt is receiving 40mg IV Lasix daily -Echo - EF 60-65%, mild concentric LVH Acute encephalopathy 2/2 delerium on chronic dementia vs hyponatremia vs infectious (CAP vs UTI vs cellulitis) suspect delerium vs infectious, as hyponatremia is mild at 132 -a&ox 3 currently -recent diagnosis of dementia - unspecified -continue to orient pt, pt not agitated currently DM II -holding pioglitizone for CHF and metformin for THOMAS -start mild SSI and hypoglycemia protocol COPD -continue home inhalers: Symbicort, DuoNeb, Atrovent -will provide DuoNebs here as needed. 3mL q 4hr prn. Hypertension -continue: Amlodipine 10mg (increased from 5) po q day, Carvedilol 12.5mg po BID , Losartan 50mg q day, Clonidine patch 0.1mg q 7 days - changed 10/19 -hydralazine 50 mg tid and prn >180 -BP improving, elevates nightly due to [place], pt refuses to wear BiPAP/CPAP at night Hyperlipidemia -continue Atorvastatin 40mg Right humeral shaft fracture -continue pain control with [place] 10-325, 1 tab q 8 hour. -PT/OT consulted. -ortho consulted - gave recs for PT GERD -continue Protonix 40mg q day Condition: Stable VTE: SCD and plavix Diet: Heart healthy with 1800 FR Code status: DNI Dispo: Pt is off of supplemental O2 at this time. Continue to strengthen and improve gait. Approved for rehab at [facility], awaiting bed availability Addendum - Attending - Attending Attestation Date/Time: 10/26/18 [id number] I personally evaluated the patient and discussed the management with Dr. Chakraborty. I agree with the History, Examination, Assessment and Plan documented above with any addition or exceptions noted below. Stable for d/c to inpt rehab once bed available.
[2018-10-26 06:33] LABS: #Eosinphils 0.4 thou/uL (0.0-0.7); #Lymphocytes 0.7 thou/uL (1.20-3.40); #Monocytes 0.7 thou/uL (0.11-0.59); #Neutrophils 5.1 thou/uL (1.40-6.50); %Basophils 0.5 % (0.0-1.0); %Eosinophils 6.1 % (0.0-10.0); %Lymphocytes 9.5 % (21.0-51.0); %Monocytes 10.5 % (0.0-10.0); %Neutrophils 73.4 % (42.0-75.0); Hemoglobin 10.1 g/dL (14.0-18.0); Mean Corpuscular HGB CONC 32.9 g/dL (32.0-36.0); Mean Corpuscular Hemoglobin 31.1 pg (27.0-31.0); Mean Corpuscular Volume 94.4 fL (78.0-98.0); Mean Platelet Volume 7.8 fL (7.4-10.4); Platelet Count 317 thou/uL (130-400); RBC Distribution Width 19.5 % (11.5-14.5); Red Blood Cell (RBC) Count 3.26 mill/uL (4.70-6.10); White Blood Cell (WBC) Count 6.9 thou/uL (4.8-10.8)
[2018-10-26 06:41] LABS: Anion Gap 11 mmol/L (10-20); BUN (Urea Nitrogen) 16 mg/dL (8.4-25.7); Calc. Creatinine Clearance 72 mL/min (70-130); Calcium 8.9 mg/dL (7.8-10.44); Carbon Dioxide 22 mmol/L (23-31); Chloride 103 mmol/L (98-107); Estimated GFR-MDRD 62; Glucose 127 mg/dL (83-110); Sodium 132 mmol/L (136-145)
[2018-10-26] MEDS: Mometasone/Formoterol 120 PUFF INHALER INH SCH (06:50)
[2018-10-26] MEDS: Tamsulosin HCl 0.4 MG CAP PO SCH (09:04)
[2018-10-26] MEDS: Clopidogrel Bisulfate 75 MG TAB PO SCH (09:05)
[2018-10-26] MEDS: Carvedilol 6.25 MG TAB PO SCH (09:05)
[2018-10-26] MEDS: hydrALAZINE 25 MG TAB PO SCH ×2 (09:05→14:46)
[2018-10-26] MEDS: Losartan 25 MG TAB PO SCH (09:05)
[2018-10-26] MEDS: guaiFENesin/DM ER PO SCH (09:06)
[2018-10-26] MEDS: Enoxaparin Sodium 40 MG/0.4 ML SYRINGE SC SCH (09:06)
[2018-10-26] MEDS: Potassium Chloride 20 MEQ TAB PO SCH (09:06)
[2018-10-26] MEDS: Furosemide 40 MG/4 ML VIAL SLOW IVP SCH (09:06)
[2018-10-26] MEDS: cloNIDine 0.1mg/24 Hour PATCH TD SCH (11:33)
[2018-10-26 14:46] VITALS: BP 150/74; TEMP 97.8
[2018-10-26] MEDS: HYDROcodone/Acetaminophen 5/325 mg Tablet PO PRN (14:46)
--- NOTE | 2018-10-26 22:57 | DIS ---
DATE OF ADMISSION: 10/18/2018 DATE OF DISCHARGE: 10/26/2018 RESIDENT: Kristopher Chakraborty DO ADMITTING ATTENDING: Carl Doe MD DISCHARGE ATTENDING: Laquita Chowdary MD CONSULTS: PT/OT, Palliative Care, Case Management, Speech Therapy. PRIMARY DIAGNOSES: Heart failure with preserved ejection fraction, acute hypoxic respiratory failure, urinary tract infection. SECONDARY DIAGNOSES: Cellulitis, hypertension, and type 2 diabetes. DISCHARGE MEDICATIONS: 1. Hubbard 10/325 two tabs q.8 hours p.r.n. 2. Atrovent 2 sprays b.i.d. 3. DuoNeb 3 mL nebs b.i.d. 4. Victoza 1.8 mg subcu daily. 5. Cozaar 50 mg daily. 6. Mobic 15 mg daily. 7. Singulair 10 mg daily. 8. Oxybutynin 15 mg b.i.d. 9. Protonix 40 mg daily. 10. Actoplus Met q.p.m. 11. Potassium chloride 20 mEq daily. 12. PreserVision one capsule b.i.d. 13. Tylenol 650 mg q.4 hours p.r.n. 14. Norvasc 10 mg q.p.m. 15. Hydralazine 50 mg t.i.d. DISCONTINUED MEDICATIONS: Amlodipine 5 mg b.i.d. HISTORY OF PRESENT ILLNESS AND HOSPITAL COURSE: The patient is a 78-year-old gentleman, who presented to the ED for evaluation of multiple complaints. Namely, the patient and family notes decreased pulse ox today taken by his home health nurse, who suggested that he would come for further evaluation. On 10/14/2018, the patient suffered a right humeral shaft fracture. Family states that since then, the patient has been lying in bed with little ambition to move and low appetite. Since then, he has been seen by Home Health. On that Wednesday, the patient also noted a skin ulceration to his medial thigh that was questioned to be a spider bite. He was started on clindamycin at that time. Family reports that patient has a recent diagnosis of dementia with a mixed etiology. In the ED, the patient met SIRS criteria due to fever of 101.2 and WBC of 16.9. He was also noted to have respirations of 20 per minute with O2 saturation of 88% on room air. He was given a 500 mL fluid bolus, started on vancomycin and Zosyn, and admitted to the hospital. For the first couple days of his admission, the patient remained in bed, only participating with PT by sitting up in bed and standing, but not able to walk. On the third day of admission, the patient had an acute desaturation overnight leading to him being admitted to the [facility] with blood pressures in the 200s over 80s. The patient was started on high-flow oxygen via nasal cannula to achieve saturations greater than 95%. Over the next several days, the patient was continually weaned off his supplemental O2. He received additional Lasix at this time totaling 60 mg per day, 40 mg IV and home dose of 20 mg p.o. In the ED, the patient was found to have a UTI that grew out E coli that was multi-drug resistant, however, was susceptible to Zosyn, so the treatment was continued for a total of 7 days before being stopped. The patient remained afebrile and asymptomatic through this. Over the last couple days of the patient's admission, he was able to be weaned down to room air with oxygen saturations greater than 96% consistently. The patient was obviously deconditioned only being able to walk 12 feet twice daily with PT at the time of his discharge, so he was discharged to inpatient rehab per recommendations of PT/OT. At the time of discharge, the patient's spider bite to his right medial thigh looked greatly improved and showed no signs of cellulitis. Throughout the patient's stay, his blood pressure was difficult to control primarily at night. This was believed to be due to his obstructive sleep apnea that the patient refuses to treat with CPAP or BiPAP. His home amlodipine dose was increased from 5 to 10 mg b.i.d., and he was started on hydralazine 50 mg t.i.d. By the time of his discharge, he was having normal pressures throughout the day and that continued to spike at night as expected. The patient and the family were agreeable to discharge to inpatient rehab for further strengthening. They were educated on return precautions and expressed understanding. DISPOSITION: Stable. DISCHARGE INSTRUCTIONS: 1. Location: [facility]. 2. Diet: Heart healthy and diabetic. 3. Activity: As tolerated. 4. Followup: PCP within 7 days of discharge. The patient is followed by Dr. Zavala. Job ID: [id number]
[2018-10-27] MEDS ORDERED: Furosemide 20 MG TAB PO SCH (09:00)
== END 2018-10-26 16:02 | DRG 871 ==
LOC: ERS 16:41 → ERHOLD 19:34 → ONC 21:29 → IMCU/EMU 10-21 03:26 → T4-B 10-24 13:27
PROVIDERS: ADMIT Family Medicine; ATTEND Family Medicine
DX: A41.51 Sepsis due to Escherichia coli [E. coli] (principal); J96.21 Acute and chronic respiratory failure with hypoxia; J18.9 Pneumonia, unspecified organism; I50.33 Acute on chronic diastolic (congestive) heart failure; J44.0 Chronic obstructive pulmonary disease with (acute) lower respiratory infection; N39.0 Urinary tract infection, site not specified; I13.0 Hypertensive heart and chronic kidney disease with heart failure and stage 1 through stage 4 chronic kidney disease, or unspecified chronic kidney disease; J44.1 Chronic obstructive pulmonary disease with (acute) exacerbation; L03.115 Cellulitis of right lower limb; N17.9 Acute kidney failure, unspecified; E87.1 Hypo-osmolality and hyponatremia; G93.40 Encephalopathy, unspecified; Z66 Do not resuscitate; F03.90 Unspecified dementia, unspecified severity, without behavioral disturbance, psychotic disturbance, mood disturbance, and anxiety; K21.9 Gastro-esophageal reflux disease without esophagitis; E78.5 Hyperlipidemia, unspecified; E11.22 Type 2 diabetes mellitus with diabetic chronic kidney disease; N18.9 Chronic kidney disease, unspecified; B96.20 Unspecified Escherichia coli [E. coli] as the cause of diseases classified elsewhere; Z16.12 Extended spectrum beta lactamase (ESBL) resistance; W57.XXXA Bitten or stung by nonvenomous insect and other nonvenomous arthropods, initial encounter; Y95 Nosocomial condition; Z87.891 Personal history of nicotine dependence; Z88.8 Allergy status to other drugs, medicaments and biological substances; Z79.51 Long term (current) use of inhaled steroids; Z79.899 Other long term (current) drug therapy; S42.301D Unspecified fracture of shaft of humerus, right arm, subsequent encounter for fracture with routine healing; W18.30XD Fall on same level, unspecified, subsequent encounter
CPT/HCPCS: 36415; 36416; 51701; 71045; 80048; 80053; 80202; 81003; 81015; 82805; 83605; 83880; 83930; 83935; 84145; 84484; 85025; 87040; 87077; 87086; 87186; 93005; 93306; 94640; 94799; 96365; 96367; 96374; 96375; J0360; J1650; J1940; J2060; J2270; J2543; J3010; J3370; J3490; J7050; J7620

== ENCOUNTER 2020-06-14 13:07 | Inpatient (IN) | payer MEDICARE, OTHER ==
[2020-06-14] MEDS ORDERED: Ondansetron ODT 4 MG TAB ONE (14:39)
[2020-06-14] MEDS ORDERED: HYDROcodone/Acetaminophen 10/325 mg Tablet ONE (14:39)
[2020-06-14 15:23] LABS: #Eosinphils 0.4 thou/uL (0.0-0.7); #Lymphocytes 0.5 thou/uL (1.20-3.40); #Monocytes 1.1 thou/uL (0.11-0.59); #Neutrophils 8.9 thou/uL (1.40-6.50); %Basophils 0.3 % (0.0-1.0); %Eosinophils 3.3 % (0.0-10.0); %Lymphocytes 4.4 % (21.0-51.0); %Monocytes 10.2 % (0.0-10.0); %Neutrophils 81.9 % (42.0-75.0); Hemoglobin 10.6 g/dL (14.0-18.0); Mean Corpuscular HGB CONC 32.3 g/dL (32.0-36.0); Mean Corpuscular Hemoglobin 31.1 pg (27.0-31.0); Mean Corpuscular Volume 96.3 fL (78.0-98.0); Mean Platelet Volume 8.6 fL (7.4-10.4); Platelet Count 200 thou/uL (130-400); RBC Distribution Width 14.2 % (11.5-14.5); White Blood Cell (WBC) Count 10.9 thou/uL (4.8-10.8)
[2020-06-14 16:02] LABS: Albumin 3.7 g/dL (3.4-4.8)
[2020-06-14 16:03] LABS: Chloride 101 mmol/L (98-107); Sodium 128 mmol/L (136-145)
[2020-06-14 16:04] LABS: Calcium 8.6 mg/dL (7.8-10.44)
[2020-06-14 16:05] LABS: Glucose 116 mg/dL (83-110)
[2020-06-14 16:06] LABS: Carbon Dioxide 22 mmol/L (23-31)
[2020-06-14 16:07] LABS: Bilirubin, Total 0.4 mg/dL (0.2-1.2)
[2020-06-14 16:08] LABS: Alkaline Phosphatase 86 U/L (40-110); Calc. Creatinine Clearance 0 mL/min (70-130)
[2020-06-14 16:09] LABS: BUN (Urea Nitrogen) 22 mg/dL (8.4-25.7)
[2020-06-14 16:19] LABS: ALT (SGPT) 18 U/L (8-55)
[2020-06-14] MEDS ORDERED: Fentanyl 100 MCG/2 ML VIAL ONE (16:26)
[2020-06-14 17:10] LABS: Potassium 4.2 mmol/L (3.5-5.1)
[2020-06-14 17:12] LABS: Anion Gap 9 mmol/L (10-20)
[2020-06-14 17:13] LABS: Globulin 2.3 g/dL (2.4-3.5)
[2020-06-14 17:14] LABS: AST (SGOT) 13 U/L (5-34)
[2020-06-14 17:22] LABS: Troponin I Less than 0.010 ng/mL (< 0.028)
[2020-06-14] MEDS ORDERED: Morphine 2 MG/ML VIAL SLOW IVP PRN (18:07)
[2020-06-14] MEDS ORDERED: Ondansetron PF 4 MG/2 ML Vial IVP PRN (18:07)
[2020-06-14] MEDS ORDERED: HumaLOG 300 UNITS/3 ML VIAL SC PRN ×2 (18:07)
[2020-06-14] MEDS ORDERED: Dextrose 5% in Water 1,000 ML IV PRN (18:07)
[2020-06-14] MEDS ORDERED: Dextrose 50% Abboject 50 ML SYRINGE SLOW IVP PRN (18:07)
[2020-06-14] MEDS ORDERED: traMADol HCl 50 MG TAB PO PRN (18:15)
[2020-06-14] MEDS ORDERED: Donepezil HCl 10 MG TAB PO SCH (21:00)
[2020-06-14] MEDS ORDERED: Vit A,C & E/Lutein/Minerals Tablet PO SCH (21:00)
[2020-06-14 21:30] LABS: Troponin I 0.013 ng/mL (< 0.028)
[2020-06-14] MEDS ORDERED: Ibuprofen 200 MG TAB PO SCH (22:00)
[2020-06-14] MEDS: Acetaminophen 325 MG TAB PO SCH (22:31)
[2020-06-14] MEDS: Amlodipine 10 MG TAB PO SCH (22:32)
[2020-06-14] MEDS: Gabapentin 300 MG CAP PO SCH (22:33)
[2020-06-14] MEDS: hydrALAZINE 25 MG TAB PO SCH (22:33)
[2020-06-14] MEDS: Carvedilol 6.25 MG TAB PO SCH (22:33)
[2020-06-14] MEDS: Oxybutynin ER 5 MG TAB PO SCH (22:34)
[2020-06-14] MEDS: Atorvastatin Calcium 40 MG TAB PO SCH (22:34)
[2020-06-14] MEDS: Montelukast Sodium 10 mg Tablet PO SCH (22:35)
[2020-06-14] MEDS: Famotidine/PF 20 mg/2ml Vial SLOW IVP SCH (22:41)
[2020-06-14] MEDS: traMADol HCl 50 MG TAB PO SCH (23:08)
[2020-06-14 23:33] LABS: Troponin I 0.012 ng/mL (< 0.028)
[2020-06-15] MEDS: Acetaminophen 325 MG TAB PO SCH ×4 (03:03→21:34)
[2020-06-15] MEDS: Ipratropium Bromide 0.06% Nasal Inhaler 15ml EA NARE SCH ×3 (03:07→21:35)
[2020-06-15] MEDS: traMADol HCl 50 MG TAB PO SCH ×4 (04:53→23:22)
[2020-06-15 05:10] LABS: Phosphorus 3.4 mg/dL (2.3-4.7)
[2020-06-15 05:12] LABS: Hemoglobin 9.7 g/dL (14.0-18.0); Mean Corpuscular HGB CONC 32.6 g/dL (32.0-36.0); Mean Corpuscular Hemoglobin 31.2 pg (27.0-31.0); Mean Corpuscular Volume 95.8 fL (78.0-98.0); Mean Platelet Volume 8.8 fL (7.4-10.4); Platelet Count 179 thou/uL (130-400); Red Blood Cell (RBC) Count 3.11 mill/uL (4.70-6.10); White Blood Cell (WBC) Count 7.7 thou/uL (4.8-10.8)
[2020-06-15 05:13] LABS: Anion Gap 12 mmol/L (10-20); BUN (Urea Nitrogen) 23 mg/dL (8.4-25.7); Calc. Creatinine Clearance 64 mL/min (70-130); Calcium 7.9 mg/dL (7.8-10.44); Carbon Dioxide 20 mmol/L (23-31); Chloride 105 mmol/L (98-107); Glucose 119 mg/dL (83-110); Potassium 4.2 mmol/L (3.5-5.1); Sodium 133 mmol/L (136-145)
[2020-06-15 06:04] LABS: Band 13 % (5-11); Eosinophils 5 % (0-10); Lymphocytes 10 % (21-51); MDiff Complete? YES; Monocytes 7 % (0-10); Neutrophil 65 % (42-75)
[2020-06-15] MEDS: Mometasone 200 MCG/Formoterol 5 MCG 120 PUFF INHALER INH SCH ×2 (07:31→18:41)
[2020-06-15] MEDS: Carvedilol 6.25 MG TAB PO SCH ×2 (08:08→21:32)
[2020-06-15] MEDS: Gabapentin 300 MG CAP PO SCH ×3 (08:10→21:33)
[2020-06-15] MEDS: Furosemide 20 MG TAB PO SCH (08:10)
[2020-06-15] MEDS: Famotidine/PF 20 mg/2ml Vial SLOW IVP SCH (08:10)
[2020-06-15] MEDS: Oxybutynin ER 5 MG TAB PO SCH ×2 (08:10→21:31)
[2020-06-15] MEDS: Vit A,C & E/Lutein/Minerals Tablet PO SCH ×2 (08:11→21:34)
[2020-06-15] MEDS: hydrALAZINE 25 MG TAB PO SCH ×3 (08:11→21:31)
[2020-06-15] MEDS: Polyethylene Glycol 3350 17 GM Packet PO SCH (08:11)
[2020-06-15] MEDS ORDERED: Fluticasone Propionate Nasal Spray 16 gm Bottle NASAL SCH (09:00)
[2020-06-15] MEDS ORDERED: Losartan 25 MG TAB PO SCH (09:00)
[2020-06-15] MEDS: Fluticasone Propionate Nasal Spray 16 gm Bottle NASAL SCH (09:12)
[2020-06-15] MEDS ORDERED: cloNIDine 0.1mg/24 Hour PATCH TD SCH (10:00)
[2020-06-15 10:38] LABS: INR-International Normal Ratio 1.1; PTT 37.2 sec (22.9-36.1); Prothrombin Time 14.1 sec (12.0-14.7)
[2020-06-15 17:08] LABS: SARS-CoV-2 PCR by NAA DETECTED (NotDetected)
[2020-06-15] MEDS: Atorvastatin Calcium 40 MG TAB PO SCH (21:32)
[2020-06-15] MEDS: Montelukast Sodium 10 mg Tablet PO SCH (21:32)
[2020-06-15] MEDS: Donepezil HCl 10 MG TAB PO SCH (21:33)
[2020-06-15] MEDS: Amlodipine 10 MG TAB PO SCH (21:33)
[2020-06-16] MEDS: Acetaminophen 325 MG TAB PO SCH ×4 (02:01→21:00)
[2020-06-16] MEDS: Mometasone 200 MCG/Formoterol 5 MCG 120 PUFF INHALER INH SCH ×2 (05:35→18:48)
[2020-06-16] MEDS: traMADol HCl 50 MG TAB PO SCH ×3 (05:35→18:33)
[2020-06-16 08:56] LABS: SARS-CoV-2 PCR by NAA DETECTED (NotDetected)
[2020-06-16] MEDS: Ipratropium Bromide 0.06% Nasal Inhaler 15ml EA NARE SCH ×2 (09:00→21:20)
[2020-06-16] MEDS: Fluticasone Propionate Nasal Spray 16 gm Bottle NASAL SCH (09:00)
[2020-06-16] MEDS: Oxybutynin ER 5 MG TAB PO SCH ×2 (10:04→21:24)
[2020-06-16] MEDS: Clopidogrel Bisulfate 75 MG TAB PO SCH (10:05)
[2020-06-16] MEDS: Ferrous Sulfate 325 MG TAB PO SCH (10:05)
[2020-06-16] MEDS: Gabapentin 300 MG CAP PO SCH ×2 (10:05→16:15)
[2020-06-16] MEDS: hydrALAZINE 25 MG TAB PO SCH ×3 (10:05→21:19)
[2020-06-16] MEDS: Potassium Chloride 20 MEQ TAB PO SCH (10:06)
[2020-06-16] MEDS: Vit A,C & E/Lutein/Minerals Tablet PO SCH ×2 (10:06→21:19)
[2020-06-16] MEDS: Carvedilol 6.25 MG TAB PO SCH ×2 (10:06→21:18)
[2020-06-16] MEDS: Folic Acid 1 MG TAB PO SCH (10:06)
[2020-06-16] MEDS: Furosemide 20 MG TAB PO SCH (10:07)
[2020-06-16] MEDS: Polyethylene Glycol 3350 17 GM Packet PO SCH (11:55)
[2020-06-16] MEDS: Albuterol 200 PUFF (6.7GM INHALER) INH SCH (18:48)
[2020-06-16] MEDS: Atorvastatin Calcium 40 MG TAB PO SCH (21:18)
[2020-06-16] MEDS: Donepezil HCl 10 MG TAB PO SCH (21:19)
[2020-06-16] MEDS: Amlodipine 10 MG TAB PO SCH (21:19)
[2020-06-16] MEDS: Montelukast Sodium 10 mg Tablet PO SCH (21:19)
[2020-06-16 21:20] LABS: Bacteria/HPF 4+ HPF (None Seen); Bilirubin Negative (Negative); Blood, Urine 3+ (Negative); Clarity Extra Turbid (Clear); Glucose, Urine (Dipstick) Normal (Negative); Ketone, Urine Negative (Negative); Leukocyte 500 Leu/uL (Negative); Nitrite 2+ (Negative); Protein, Urine (Dipstick) 50 mg/dL (Neg-Trace); RBC/HPF Greater than 50 HPF (0-3); Specific Gravity, Urine 1.014 (1.002-1.036); Squamous Epithelial None Seen HPF (0-3); Urobilinogen Normal mg/dL (Less than 2); WBC/HPF Greater than 50 HPF (0-3)
[2020-06-16 21:22] LABS: Urine Culture Reflex Yes Yes
[2020-06-17] MEDS: Acetaminophen 325 MG TAB PO SCH ×2 (01:50→09:34)
[2020-06-17] MEDS: Mometasone 200 MCG/Formoterol 5 MCG 120 PUFF INHALER INH SCH ×2 (05:40→17:55)
[2020-06-17] MEDS: Albuterol 200 PUFF (6.7GM INHALER) INH SCH ×2 (05:40→17:54)
[2020-06-17 06:18] LABS: #Eosinphils 0.3 thou/uL (0.0-0.7); #Lymphocytes 0.4 thou/uL (1.20-3.40); #Monocytes 1.1 thou/uL (0.11-0.59); #Neutrophils 9.1 thou/uL (1.40-6.50); %Basophils 0.2 % (0.0-1.0); %Eosinophils 2.9 % (0.0-10.0); %Lymphocytes 3.6 % (21.0-51.0); %Monocytes 9.7 % (0.0-10.0); %Neutrophils 83.6 % (42.0-75.0); Hemoglobin 10.2 g/dL (14.0-18.0); Mean Corpuscular HGB CONC 32.1 g/dL (32.0-36.0); Mean Corpuscular Hemoglobin 30.7 pg (27.0-31.0); Mean Corpuscular Volume 95.7 fL (78.0-98.0); Mean Platelet Volume 8.5 fL (7.4-10.4); Platelet Count 189 thou/uL (130-400); RBC Distribution Width 13.8 % (11.5-14.5); Red Blood Cell (RBC) Count 3.34 mill/uL (4.70-6.10); White Blood Cell (WBC) Count 10.9 thou/uL (4.8-10.8)
[2020-06-17 06:45] LABS: Anion Gap 13 mmol/L (10-20); BUN (Urea Nitrogen) 20 mg/dL (8.4-25.7); Calc. Creatinine Clearance 61 mL/min (70-130); Calcium 8.2 mg/dL (7.8-10.44); Carbon Dioxide 20 mmol/L (23-31); Chloride 102 mmol/L (98-107); Glucose 147 mg/dL (83-110); Magnesium 1.7 mg/dL (1.6-2.6); Phosphorus 3.4 mg/dL (2.3-4.7); Potassium 4.3 mmol/L (3.5-5.1); Sodium 131 mmol/L (136-145)
[2020-06-17] MEDS: Ipratropium Bromide 0.06% Nasal Inhaler 15ml EA NARE SCH ×2 (09:33→20:39)
[2020-06-17] MEDS: Polyethylene Glycol 3350 17 GM Packet PO SCH (09:34)
[2020-06-17] MEDS: hydrALAZINE 25 MG TAB PO SCH ×3 (09:34→20:39)
[2020-06-17] MEDS: Cholecalciferol (Vitamin D3) 400 UNITS TAB PO SCH (09:35)
[2020-06-17] MEDS: Vit A,C & E/Lutein/Minerals Tablet PO SCH ×2 (09:35→20:32)
[2020-06-17] MEDS: Ascorbic Acid 500 mg Chewable Tablet PO SCH (09:35)
[2020-06-17] MEDS: Folic Acid 1 MG TAB PO SCH (09:35)
[2020-06-17] MEDS: Ferrous Sulfate 325 MG TAB PO SCH (09:35)
[2020-06-17] MEDS: Clopidogrel Bisulfate 75 MG TAB PO SCH (09:35)
[2020-06-17] MEDS: Carvedilol 6.25 MG TAB PO SCH ×2 (09:35→20:38)
[2020-06-17] MEDS: Potassium Chloride 20 MEQ TAB PO SCH (09:35)
[2020-06-17] MEDS: Zinc Sulfate 220 MG CAP PO SCH (09:35)
[2020-06-17] MEDS: Furosemide 20 MG TAB PO SCH (09:36)
[2020-06-17] MEDS: Fluticasone Propionate Nasal Spray 16 gm Bottle NASAL SCH (09:36)
[2020-06-17] MEDS: Dexamethasone 4 MG TAB PO SCH (09:41)
[2020-06-17] MEDS: Oxybutynin ER 5 MG TAB PO SCH ×2 (09:42→20:41)
[2020-06-17] MEDS ORDERED: Furosemide 20 MG/2 ML VIAL SLOW IVP SCH (11:00)
[2020-06-17] MEDS ORDERED: Dextrose 5 %-0.45 % NaCl 1,000 ML IV SCH (16:15)
[2020-06-17] MEDS ORDERED: Lactated Ringer's 500 ML IV SCH (16:15)
[2020-06-17] MEDS: Acetaminophen/Codeine 30-300mg Tablet PO SCH ×2 (17:54→23:39)
[2020-06-17] MEDS: Amlodipine 10 MG TAB PO SCH (20:38)
[2020-06-17] MEDS: Sulfameth/Trimethoprim DS 800-160mg TAB PO SCH (20:38)
[2020-06-17] MEDS: Montelukast Sodium 10 mg Tablet PO SCH (20:39)
[2020-06-17] MEDS: Donepezil HCl 10 MG TAB PO SCH (20:39)
[2020-06-17] MEDS: Atorvastatin Calcium 40 MG TAB PO SCH (20:39)
[2020-06-18] MEDS: Acetaminophen/Codeine 30-300mg Tablet PO SCH ×3 (05:54→17:43)
[2020-06-18] MEDS: Mometasone 200 MCG/Formoterol 5 MCG 120 PUFF INHALER INH SCH ×2 (05:55→17:46)
[2020-06-18] MEDS: Albuterol 200 PUFF (6.7GM INHALER) INH SCH ×2 (05:55→17:45)
[2020-06-18] MEDS: Oxybutynin ER 5 MG TAB PO SCH ×2 (08:44→21:51)
[2020-06-18] MEDS: Zinc Sulfate 220 MG CAP PO SCH (08:44)
[2020-06-18] MEDS: Clopidogrel Bisulfate 75 MG TAB PO SCH (08:44)
[2020-06-18] MEDS: Dexamethasone 4 MG TAB PO SCH (08:45)
[2020-06-18] MEDS: Folic Acid 1 MG TAB PO SCH (08:45)
[2020-06-18] MEDS: Ferrous Sulfate 325 MG TAB PO SCH (08:45)
[2020-06-18] MEDS: Ascorbic Acid 500 mg Chewable Tablet PO SCH (08:45)
[2020-06-18] MEDS: Potassium Chloride 20 MEQ TAB PO SCH (08:45)
[2020-06-18] MEDS: hydrALAZINE 25 MG TAB PO SCH ×3 (08:45→21:52)
[2020-06-18] MEDS: Carvedilol 6.25 MG TAB PO SCH ×2 (08:45→21:51)
[2020-06-18] MEDS: Cholecalciferol (Vitamin D3) 400 UNITS TAB PO SCH (08:45)
[2020-06-18] MEDS: Polyethylene Glycol 3350 17 GM Packet PO SCH (08:46)
[2020-06-18] MEDS: Vit A,C & E/Lutein/Minerals Tablet PO SCH ×2 (08:46→21:51)
[2020-06-18] MEDS: Sulfameth/Trimethoprim DS 800-160mg TAB PO SCH ×2 (08:46→21:51)
[2020-06-18] MEDS: Ipratropium Bromide 0.06% Nasal Inhaler 15ml EA NARE SCH ×2 (08:47→21:53)
[2020-06-18] MEDS: Fluticasone Propionate Nasal Spray 16 gm Bottle NASAL SCH (08:47)
[2020-06-18] MEDS: Furosemide 40 MG/4 ML VIAL SLOW IVP SCH (08:53)
[2020-06-18] MEDS ORDERED: Furosemide 40 MG TAB PO SCH (09:00)
[2020-06-18 09:22] LABS: Anion Gap 13 mmol/L (10-20); BUN (Urea Nitrogen) 28 mg/dL (8.4-25.7); Calc. Creatinine Clearance 57 mL/min (70-130); Calcium 8.5 mg/dL (7.8-10.44); Carbon Dioxide 22 mmol/L (23-31); Chloride 102 mmol/L (98-107); Glucose 171 mg/dL (83-110); Potassium 4.2 mmol/L (3.5-5.1); Sodium 133 mmol/L (136-145)
[2020-06-18] MEDS: LIRAGLUTIDE 0.6 MG/0.1 ML SC SCH ×3 (09:38→11:32)
[2020-06-18] MEDS: HumaLOG 300 UNITS/3 ML VIAL SC PRN (17:43)
[2020-06-18] MEDS: Donepezil HCl 10 MG TAB PO SCH (21:51)
[2020-06-18] MEDS: Atorvastatin Calcium 40 MG TAB PO SCH (21:51)
[2020-06-18] MEDS: Montelukast Sodium 10 mg Tablet PO SCH (21:52)
[2020-06-18] MEDS: Amlodipine 10 MG TAB PO SCH (21:52)
[2020-06-19 00:55] LABS: Actual Bicarbonate (HCO3a) 24.2 mEq/L (22-28); Base Excess (BEa) -0.2 mEq/L (-2.0 to +3.0); CO2 Tension 38.7 mmHg (35.0-45.0); Calcium, Ionized (arterial) 1.19 mmol/L (1.12-1.30); Carboxyhemoglobin (COHb) 0.3 gm% (0.0-3.0); Hemoglobin (Hb) 10.8 g/dL (14.0-18.0); Potassium - ABG Lab 4.57 mmol/L (3.70-5.30); pH, Arterial 7.41 (7.35-7.45)
[2020-06-19 00:57] LABS: Puncture Site LRA
[2020-06-19 00:58] LABS: ALV-art Gradient 384.725 mmHg (0-20)
[2020-06-19] MEDS: Acetaminophen/Codeine 30-300mg Tablet PO SCH ×4 (02:36→17:53)
[2020-06-19 04:31] LABS: Anion Gap 15 mmol/L (10-20); BUN (Urea Nitrogen) 31 mg/dL (8.4-25.7); Calc. Creatinine Clearance 48 mL/min (70-130); Calcium 9.2 mg/dL (7.8-10.44); Carbon Dioxide 23 mmol/L (23-31); Chloride 99 mmol/L (98-107); Glucose 183 mg/dL (83-110); Magnesium 1.8 mg/dL (1.6-2.6); Phosphorus 2.7 mg/dL (2.3-4.7); Potassium 4.7 mmol/L (3.5-5.1); Sodium 132 mmol/L (136-145)
[2020-06-19 05:20] LABS: Band 45 % (5-11); Hemoglobin 10.1 g/dL (14.0-18.0); Lymphocytes 7 % (21-51); MDiff Complete? YES; Mean Corpuscular HGB CONC 32.6 g/dL (32.0-36.0); Mean Corpuscular Hemoglobin 30.7 pg (27.0-31.0); Mean Corpuscular Volume 94.2 fL (78.0-98.0); Mean Platelet Volume 8.3 fL (7.4-10.4); Monocytes 8 % (0-10); Neutrophil 40 % (42-75); Platelet Count 256 thou/uL (130-400); RBC Distribution Width 13.8 % (11.5-14.5); Red Blood Cell (RBC) Count 3.28 mill/uL (4.70-6.10); White Blood Cell (WBC) Count 7.3 thou/uL (4.8-10.8)
[2020-06-19] MEDS: HumaLOG 300 UNITS/3 ML VIAL SC PRN (06:08)
[2020-06-19] MEDS: Albuterol 200 PUFF (6.7GM INHALER) INH SCH ×4 (08:48→21:42)
[2020-06-19] MEDS: Mometasone 200 MCG/Formoterol 5 MCG 120 PUFF INHALER INH SCH ×2 (08:49→21:42)
[2020-06-19 10:24] LABS: Actual Bicarbonate (HCO3a) 24.5 mEq/L (22-28); Base Excess (BEa) -0.1 mEq/L (-2.0 to +3.0); CO2 Tension 39.8 mmHg (35.0-45.0); Calcium, Ionized (arterial) 1.18 mmol/L (1.12-1.30); Carboxyhemoglobin (COHb) 0.4 gm% (0.0-3.0); Hemoglobin (Hb) 11.1 g/dL (14.0-18.0); Potassium - ABG Lab 4.86 mmol/L (3.70-5.30); pH, Arterial 7.41 (7.35-7.45)
[2020-06-19] MEDS ORDERED: Dexamethasone 6 MG in Sodium Chloride 0.9% 50 ML IVPB SCH (10:30)
[2020-06-19 10:41] LABS: O2 Tension (PaO2), arterial 51.5 mmHg (> 70.0); Puncture Site RRA
[2020-06-19] MEDS: Ascorbic Acid 500 mg Chewable Tablet PO SCH (10:43)
[2020-06-19] MEDS: Carvedilol 6.25 MG TAB PO SCH ×2 (10:43→21:42)
[2020-06-19] MEDS: Cholecalciferol (Vitamin D3) 400 UNITS TAB PO SCH (10:44)
[2020-06-19] MEDS: Ferrous Sulfate 325 MG TAB PO SCH (10:44)
[2020-06-19] MEDS: Clopidogrel Bisulfate 75 MG TAB PO SCH (10:44)
[2020-06-19] MEDS: Dexamethasone 4 MG TAB PO SCH (10:44)
[2020-06-19] MEDS: Polyethylene Glycol 3350 17 GM Packet PO SCH (10:45)
[2020-06-19] MEDS: Folic Acid 1 MG TAB PO SCH (10:45)
[2020-06-19] MEDS: Fluticasone Propionate Nasal Spray 16 gm Bottle NASAL SCH (10:45)
[2020-06-19] MEDS: hydrALAZINE 25 MG TAB PO SCH ×3 (10:45→21:42)
[2020-06-19] MEDS: Oxybutynin ER 5 MG TAB PO SCH ×2 (10:45→21:44)
[2020-06-19] MEDS: Zinc Sulfate 220 MG CAP PO SCH (10:46)
[2020-06-19] MEDS: Potassium Chloride 20 MEQ TAB PO SCH (10:46)
[2020-06-19] MEDS: Sulfameth/Trimethoprim DS 800-160mg TAB PO SCH (10:46)
[2020-06-19] MEDS: Vit A,C & E/Lutein/Minerals Tablet PO SCH ×2 (10:46→21:44)
[2020-06-19] MEDS: cloNIDine 0.1mg/24 Hour PATCH TD SCH (10:50)
[2020-06-19] MEDS: Furosemide 40 MG/4 ML VIAL SLOW IVP SCH (10:52)
[2020-06-19] MEDS: Ipratropium Bromide 0.06% Nasal Inhaler 15ml EA NARE SCH ×2 (10:52→21:45)
[2020-06-19] MEDS: Enoxaparin Sodium 40 MG/0.4 ML SYRINGE SC SCH (10:52)
[2020-06-19] MEDS: Piperacillin/Tazobactam 3.375 GM in Sodium Chloride 0.9% 100 ML IVPB SCH ×3 (10:52→21:45)
[2020-06-19] MEDS ORDERED: Ivermectin 3 MG TAB PO SCH (15:30)
[2020-06-19] MEDS: methylPREDNISolone Sod Succ/PF 125 MG in Sodium Chloride 0.9% 250 ML 250 ML IVPB SCH (17:41)
[2020-06-19] MEDS: Meropenem 2 GM, Admixture Fee 1 EACH in Sodium Chloride 0.9% 100 ML IVPB SCH (18:56)
[2020-06-19] MEDS: Montelukast Sodium 10 mg Tablet PO SCH (21:43)
[2020-06-19] MEDS: Atorvastatin Calcium 40 MG TAB PO SCH (21:44)
[2020-06-19] MEDS: Donepezil HCl 10 MG TAB PO SCH (21:45)
[2020-06-19] MEDS: Amlodipine 10 MG TAB PO SCH (21:45)
[2020-06-20] MEDS: Meropenem 2 GM, Admixture Fee 1 EACH in Sodium Chloride 0.9% 100 ML IVPB SCH ×3 (01:55→17:56)
[2020-06-20] MEDS: Acetaminophen/Codeine 30-300mg Tablet PO SCH ×4 (01:57→17:16)
[2020-06-20] MEDS: Albuterol 200 PUFF (6.7GM INHALER) INH SCH ×7 (02:12→23:20)
[2020-06-20 04:24] LABS: Hemoglobin 8.6 g/dL (14.0-18.0); Mean Corpuscular HGB CONC 32.1 g/dL (32.0-36.0); Mean Corpuscular Hemoglobin 30.7 pg (27.0-31.0); Mean Corpuscular Volume 95.6 fL (78.0-98.0); Mean Platelet Volume 8.8 fL (7.4-10.4); Platelet Count 225 thou/uL (130-400); RBC Distribution Width 13.8 % (11.5-14.5); Red Blood Cell (RBC) Count 2.81 mill/uL (4.70-6.10); White Blood Cell (WBC) Count 8.5 thou/uL (4.8-10.8)
[2020-06-20 04:28] LABS: Anion Gap 15 mmol/L (10-20); BUN (Urea Nitrogen) 41 mg/dL (8.4-25.7); Calc. Creatinine Clearance 45 mL/min (70-130); Calcium 8.3 mg/dL (7.8-10.44); Carbon Dioxide 23 mmol/L (23-31); Chloride 102 mmol/L (98-107); Glucose 171 mg/dL (83-110); Magnesium 1.9 mg/dL (1.6-2.6); Phosphorus 3.9 mg/dL (2.3-4.7); Potassium 4.5 mmol/L (3.5-5.1); Sodium 135 mmol/L (136-145)
[2020-06-20 04:58] LABS: Band 60 % (5-11); Lymphocytes 2 % (21-51); MDiff Complete? YES; Monocytes 5 % (0-10); Neutrophil 33 % (42-75)
[2020-06-20] MEDS: Piperacillin/Tazobactam 3.375 GM in Sodium Chloride 0.9% 100 ML IVPB SCH ×2 (05:02→07:56)
[2020-06-20] MEDS: Furosemide 40 MG/4 ML VIAL SLOW IVP SCH (07:57)
[2020-06-20] MEDS: Vit A,C & E/Lutein/Minerals Tablet PO SCH ×2 (07:57→20:31)
[2020-06-20] MEDS: Zinc Sulfate 220 MG CAP PO SCH (07:58)
[2020-06-20] MEDS: Oxybutynin ER 5 MG TAB PO SCH ×2 (07:58→20:26)
[2020-06-20] MEDS: Folic Acid 1 MG TAB PO SCH (07:58)
[2020-06-20] MEDS: Ascorbic Acid 500 mg Chewable Tablet PO SCH ×3 (07:58→17:16)
[2020-06-20] MEDS: Cholecalciferol (Vitamin D3) 400 UNITS TAB PO SCH (07:58)
[2020-06-20] MEDS: Potassium Chloride 20 MEQ TAB PO SCH (07:58)
[2020-06-20] MEDS: hydrALAZINE 25 MG TAB PO SCH ×3 (07:59→20:29)
[2020-06-20] MEDS: Polyethylene Glycol 3350 17 GM Packet PO SCH (07:59)
[2020-06-20] MEDS: Clopidogrel Bisulfate 75 MG TAB PO SCH (07:59)
[2020-06-20] MEDS: Ferrous Sulfate 325 MG TAB PO SCH (07:59)
[2020-06-20] MEDS: Fluticasone Propionate Nasal Spray 16 gm Bottle NASAL SCH (08:01)
[2020-06-20] MEDS: Ipratropium Bromide 0.06% Nasal Inhaler 15ml EA NARE SCH ×2 (08:01→20:32)
[2020-06-20] MEDS: Enoxaparin Sodium 40 MG/0.4 ML SYRINGE SC SCH (08:01)
[2020-06-20] MEDS ORDERED: Dexamethasone 6 MG in Sodium Chloride 0.9% 50 ML IVPB SCH (09:00)
[2020-06-20] MEDS: Carvedilol 6.25 MG TAB PO SCH ×2 (11:13→20:30)
[2020-06-20] MEDS: Mometasone 200 MCG/Formoterol 5 MCG 120 PUFF INHALER INH SCH ×2 (12:47→19:44)
[2020-06-20] MEDS: methylPREDNISolone Sod Succ/PF 125 MG in Sodium Chloride 0.9% 250 ML 250 ML IVPB SCH (15:45)
[2020-06-20] MEDS: Atorvastatin Calcium 40 MG TAB PO SCH (20:29)
[2020-06-20] MEDS: Donepezil HCl 10 MG TAB PO SCH (20:29)
[2020-06-20] MEDS: Amlodipine 10 MG TAB PO SCH (20:31)
[2020-06-20] MEDS: Montelukast Sodium 10 mg Tablet PO SCH (20:31)
[2020-06-21] MEDS: Acetaminophen/Codeine 30-300mg Tablet PO SCH ×5 (00:10→23:10)
[2020-06-21] MEDS: Ascorbic Acid 500 mg Chewable Tablet PO SCH ×6 (00:11→23:11)
[2020-06-21] MEDS: Meropenem 2 GM, Admixture Fee 1 EACH in Sodium Chloride 0.9% 100 ML IVPB SCH ×4 (00:31→23:11)
[2020-06-21] MEDS: Albuterol 200 PUFF (6.7GM INHALER) INH SCH ×6 (02:30→23:10)
[2020-06-21] MEDS: HumaLOG 300 UNITS/3 ML VIAL SC PRN ×2 (05:27→21:18)
[2020-06-21] MEDS: Mometasone 200 MCG/Formoterol 5 MCG 120 PUFF INHALER INH SCH ×2 (05:56→18:14)
[2020-06-21] MEDS: Polyethylene Glycol 3350 17 GM Packet PO SCH (07:34)
[2020-06-21] MEDS: Oxybutynin ER 5 MG TAB PO SCH ×2 (07:34→21:13)
[2020-06-21] MEDS: Folic Acid 1 MG TAB PO SCH (07:34)
[2020-06-21] MEDS: Enoxaparin Sodium 40 MG/0.4 ML SYRINGE SC SCH (07:34)
[2020-06-21] MEDS: Ivermectin 3 MG TAB PO SCH (07:35)
[2020-06-21] MEDS: Vit A,C & E/Lutein/Minerals Tablet PO SCH ×2 (07:35→21:14)
[2020-06-21] MEDS: Furosemide 20 MG TAB PO SCH (07:35)
[2020-06-21] MEDS: Potassium Chloride 20 MEQ TAB PO SCH (07:35)
[2020-06-21] MEDS: Zinc Sulfate 220 MG CAP PO SCH (07:36)
[2020-06-21] MEDS: Cholecalciferol (Vitamin D3) 400 UNITS TAB PO SCH (07:36)
[2020-06-21] MEDS: Carvedilol 6.25 MG TAB PO SCH ×2 (07:36→21:13)
[2020-06-21] MEDS: Ferrous Sulfate 325 MG TAB PO SCH (07:36)
[2020-06-21] MEDS: Fluticasone Propionate Nasal Spray 16 gm Bottle NASAL SCH (07:37)
[2020-06-21] MEDS: hydrALAZINE 25 MG TAB PO SCH ×3 (07:37→21:14)
[2020-06-21] MEDS: Ipratropium Bromide 0.06% Nasal Inhaler 15ml EA NARE SCH ×2 (07:37→21:14)
[2020-06-21] MEDS: methylPREDNISolone Sod Succ/PF 125 MG in Sodium Chloride 0.9% 250 ML 250 ML IVPB SCH (16:09)
[2020-06-21 16:17] LABS: Base Excess (BEa) -0.5 mEq/L (-2.0 to +3.0); CO2 Tension 33.2 mmHg (35.0-45.0); Carboxyhemoglobin (COHb) 0.6 gm% (0.0-3.0); Hemoglobin (Hb) 9.1 g/dL (14.0-18.0); O2 Tension (PaO2), arterial 69.1 mmHg (> 70.0); pH, Arterial 7.46 (7.35-7.45)
[2020-06-21 16:23] LABS: Puncture Site RRA
[2020-06-21] MEDS: Atorvastatin Calcium 40 MG TAB PO SCH (21:14)
[2020-06-21] MEDS: Donepezil HCl 10 MG TAB PO SCH (21:14)
[2020-06-21] MEDS: Amlodipine 10 MG TAB PO SCH (21:14)
[2020-06-21] MEDS: Montelukast Sodium 10 mg Tablet PO SCH (21:14)
[2020-06-22 00:04] LABS: Bilirubin Negative (Negative); Blood, Urine Negative (Negative); Clarity Clear (Clear); Glucose, Urine (Dipstick) Normal (Negative); Ketone, Urine Trace mg/dL (Negative); Leukocyte 250 Leu/uL (Negative); Nitrite Negative (Negative); Protein, Urine (Dipstick) 20 mg/dL (Neg-Trace); RBC/HPF 0-3 HPF (0-3); Specific Gravity, Urine 1.019 (1.002-1.036); Squamous Epithelial 0-3 HPF (0-3); Urobilinogen Normal mg/dL (Less than 2); pH, Urine 5.5 (5.0-9.0)
[2020-06-22 00:09] LABS: Bacteria/HPF 1+ HPF (None Seen)
[2020-06-22 00:10] LABS: Urine Culture Reflex Yes Yes
[2020-06-22] MEDS: Albuterol 200 PUFF (6.7GM INHALER) INH SCH ×6 (03:33→21:42)
[2020-06-22] MEDS ORDERED: Melatonin 3 MG TAB PO PRN (03:37)
[2020-06-22 03:58] LABS: Band 23 % (5-11); Hemoglobin 8.7 g/dL (14.0-18.0); Hypochromia SLIGHT = 6-15 cells (100X) (0-5/hpf); Lymphocytes 7 % (21-51); MDiff Complete? YES; Mean Corpuscular HGB CONC 31.9 g/dL (32.0-36.0); Mean Corpuscular Hemoglobin 30.1 pg (27.0-31.0); Mean Corpuscular Volume 94.3 fL (78.0-98.0); Mean Platelet Volume 8.7 fL (7.4-10.4); Monocytes 7 % (0-10); Neutrophil 63 % (42-75); Platelet Count 325 thou/uL (130-400); Platelet Morphology Comment Appears Adequate; RBC Distribution Width 14.4 % (11.5-14.5); Red Blood Cell (RBC) Count 2.89 mill/uL (4.70-6.10); White Blood Cell (WBC) Count 19.6 thou/uL (4.8-10.8)
[2020-06-22 04:02] LABS: Anion Gap 18 mmol/L (10-20); BUN (Urea Nitrogen) 46 mg/dL (8.4-25.7); Calc. Creatinine Clearance 48 mL/min (70-130); Calcium 8.5 mg/dL (7.8-10.44); Carbon Dioxide 22 mmol/L (23-31); Chloride 101 mmol/L (98-107); Glucose 204 mg/dL (83-110); Potassium 4.8 mmol/L (3.5-5.1); Sodium 136 mmol/L (136-145)
[2020-06-22] MEDS: Mometasone 200 MCG/Formoterol 5 MCG 120 PUFF INHALER INH SCH ×2 (06:34→08:05)
[2020-06-22] MEDS: Ascorbic Acid 500 mg Chewable Tablet PO SCH ×3 (06:55→11:14)
[2020-06-22] MEDS: Acetaminophen/Codeine 30-300mg Tablet PO SCH ×3 (06:55→17:06)
[2020-06-22] MEDS: Polyethylene Glycol 3350 17 GM Packet PO SCH (08:02)
[2020-06-22] MEDS: Cholecalciferol (Vitamin D3) 400 UNITS TAB PO SCH (08:03)
[2020-06-22] MEDS: Oxybutynin ER 5 MG TAB PO SCH ×2 (08:03→20:38)
[2020-06-22] MEDS: Folic Acid 1 MG TAB PO SCH (08:03)
[2020-06-22] MEDS: Carvedilol 6.25 MG TAB PO SCH ×2 (08:03→20:38)
[2020-06-22] MEDS: Ivermectin 3 MG TAB PO SCH (08:03)
[2020-06-22] MEDS: hydrALAZINE 25 MG TAB PO SCH ×3 (08:04→20:39)
[2020-06-22] MEDS: Potassium Chloride 20 MEQ TAB PO SCH (08:04)
[2020-06-22] MEDS: Furosemide 20 MG TAB PO SCH (08:04)
[2020-06-22] MEDS: Zinc Sulfate 220 MG CAP PO SCH (08:04)
[2020-06-22] MEDS: Vit A,C & E/Lutein/Minerals Tablet PO SCH ×2 (08:04→20:38)
[2020-06-22] MEDS: Ferrous Sulfate 325 MG TAB PO SCH (08:04)
[2020-06-22] MEDS: Ipratropium Bromide 0.06% Nasal Inhaler 15ml EA NARE SCH ×2 (08:06→20:39)
[2020-06-22] MEDS: Fluticasone Propionate Nasal Spray 16 gm Bottle NASAL SCH (08:06)
[2020-06-22] MEDS: Meropenem 2 GM, Admixture Fee 1 EACH in Sodium Chloride 0.9% 100 ML IVPB SCH ×3 (09:27→23:23)
[2020-06-22] MEDS: Clopidogrel Bisulfate 75 MG TAB PO SCH (09:28)
[2020-06-22] MEDS: Enoxaparin Sodium 40 MG/0.4 ML SYRINGE SC SCH (09:28)
[2020-06-22] MEDS: Donepezil HCl 10 MG TAB PO SCH (20:38)
[2020-06-22] MEDS: Lorazepam 1 MG TAB PO SCH (20:38)
[2020-06-22] MEDS: Montelukast Sodium 10 mg Tablet PO SCH (20:38)
[2020-06-22] MEDS: Amlodipine 10 MG TAB PO SCH (20:39)
[2020-06-22] MEDS: Atorvastatin Calcium 40 MG TAB PO SCH (20:47)
[2020-06-23] MEDS: Acetaminophen/Codeine 30-300mg Tablet PO SCH ×5 (01:06→23:29)
[2020-06-23] MEDS: Albuterol 200 PUFF (6.7GM INHALER) INH SCH ×6 (03:15→22:55)
[2020-06-23] MEDS: HumaLOG 300 UNITS/3 ML VIAL SC PRN (05:21)
[2020-06-23] MEDS: Mometasone 200 MCG/Formoterol 5 MCG 120 PUFF INHALER INH SCH ×2 (05:32→20:47)
[2020-06-23 06:01] LABS: Hemoglobin 8.9 g/dL (14.0-18.0); Mean Corpuscular HGB CONC 32.1 g/dL (32.0-36.0); Mean Corpuscular Hemoglobin 30.1 pg (27.0-31.0); Mean Corpuscular Volume 93.8 fL (78.0-98.0); Mean Platelet Volume 8.6 fL (7.4-10.4); Platelet Count 280 thou/uL (130-400); RBC Distribution Width 14.5 % (11.5-14.5); Red Blood Cell (RBC) Count 2.96 mill/uL (4.70-6.10); White Blood Cell (WBC) Count 17.8 thou/uL (4.8-10.8)
[2020-06-23 06:02] LABS: Anion Gap 16 mmol/L (10-20); BUN (Urea Nitrogen) 35 mg/dL (8.4-25.7); Calc. Creatinine Clearance 58 mL/min (70-130); Calcium 8.3 mg/dL (7.8-10.44); Carbon Dioxide 19 mmol/L (23-31); Chloride 108 mmol/L (98-107); Glucose 186 mg/dL (83-110); Potassium 4.1 mmol/L (3.5-5.1); Sodium 139 mmol/L (136-145)
[2020-06-23 06:16] LABS: Band 11 % (5-11); Lymphocytes 1 % (21-51); MDiff Complete? YES; Metamyelocyte 1 % (0-0); Monocytes 5 % (0-10); Myelocyte 1 % (0-0); Neutrophil 81 % (42-75); Nucleated RBC 1 % (0); Platelet Morphology Comment Appears Adequate
[2020-06-23] MEDS: Oxybutynin ER 5 MG TAB PO SCH ×2 (08:17→21:40)
[2020-06-23] MEDS: Ferrous Sulfate 325 MG TAB PO SCH (08:17)
[2020-06-23] MEDS: Zinc Sulfate 220 MG CAP PO SCH (08:17)
[2020-06-23] MEDS: Potassium Chloride 20 MEQ TAB PO SCH (08:17)
[2020-06-23] MEDS: Cholecalciferol (Vitamin D3) 400 UNITS TAB PO SCH (08:18)
[2020-06-23] MEDS: hydrALAZINE 25 MG TAB PO SCH ×3 (08:18→21:38)
[2020-06-23] MEDS: Clopidogrel Bisulfate 75 MG TAB PO SCH (08:18)
[2020-06-23] MEDS: Ascorbic Acid 500 mg Chewable Tablet PO SCH (08:18)
[2020-06-23] MEDS: Vit A,C & E/Lutein/Minerals Tablet PO SCH ×2 (08:18→21:40)
[2020-06-23] MEDS: Folic Acid 1 MG TAB PO SCH (08:20)
[2020-06-23] MEDS: Furosemide 20 MG TAB PO SCH (08:20)
[2020-06-23] MEDS: Carvedilol 6.25 MG TAB PO SCH ×2 (08:20→21:38)
[2020-06-23] MEDS: Ivermectin 3 MG TAB PO SCH (08:20)
[2020-06-23] MEDS: Enoxaparin Sodium 40 MG/0.4 ML SYRINGE SC SCH (08:21)
[2020-06-23] MEDS: Fluticasone Propionate Nasal Spray 16 gm Bottle NASAL SCH (08:21)
[2020-06-23] MEDS: Polyethylene Glycol 3350 17 GM Packet PO SCH (08:21)
[2020-06-23] MEDS: Ipratropium Bromide 0.06% Nasal Inhaler 15ml EA NARE SCH ×2 (08:22→21:40)
[2020-06-23] MEDS: Meropenem 2 GM, Admixture Fee 1 EACH in Sodium Chloride 0.9% 100 ML IVPB SCH ×2 (10:10→17:51)
[2020-06-23] MEDS: Ziprasidone 20 MG VIAL IM PRN (11:44)
[2020-06-23] MEDS ORDERED: Fluconazole In NaCl,Iso-Osm 200 MG in Premix Bag 1 BAG IVPB SCH (17:45)
[2020-06-23] MEDS: Morphine 2 MG/ML VIAL SLOW IVP PRN (20:48)
[2020-06-23] MEDS: Amlodipine 10 MG TAB PO SCH (21:37)
[2020-06-23] MEDS: Donepezil HCl 10 MG TAB PO SCH (21:38)
[2020-06-23] MEDS: Atorvastatin Calcium 40 MG TAB PO SCH (21:38)
[2020-06-23] MEDS: Montelukast Sodium 10 mg Tablet PO SCH (21:40)
[2020-06-23] MEDS: Lorazepam 1 MG TAB PO SCH (21:40)
[2020-06-24] MEDS: Meropenem 2 GM, Admixture Fee 1 EACH in Sodium Chloride 0.9% 100 ML IVPB SCH ×4 (00:05→23:40)
[2020-06-24] MEDS: Albuterol 200 PUFF (6.7GM INHALER) INH SCH ×6 (02:11→23:40)
[2020-06-24] MEDS: Morphine 2 MG/ML VIAL SLOW IVP PRN (02:39)
[2020-06-24 03:55] LABS: Anion Gap 15 mmol/L (10-20); BUN (Urea Nitrogen) 28 mg/dL (8.4-25.7); Calc. Creatinine Clearance 64 mL/min (70-130); Calcium 7.9 mg/dL (7.8-10.44); Carbon Dioxide 23 mmol/L (23-31); Chloride 106 mmol/L (98-107); Glucose 161 mg/dL (83-110); Potassium 3.8 mmol/L (3.5-5.1); Sodium 140 mmol/L (136-145)
[2020-06-24 04:27] LABS: Band 13 % (5-11); Hemoglobin 8.8 g/dL (14.0-18.0); Hypochromia SLIGHT = 6-15 cells (100X) (0-5/hpf); Lymphocytes 7 % (21-51); MDiff Complete? YES; Mean Corpuscular HGB CONC 32.3 g/dL (32.0-36.0); Mean Corpuscular Hemoglobin 30.4 pg (27.0-31.0); Mean Corpuscular Volume 94.1 fL (78.0-98.0); Mean Platelet Volume 8.9 fL (7.4-10.4); Monocytes 2 % (0-10); Neutrophil 78 % (42-75); Platelet Count 260 thou/uL (130-400); Platelet Morphology Comment Appears Adequate; RBC Distribution Width 14.9 % (11.5-14.5); Red Blood Cell (RBC) Count 2.91 mill/uL (4.70-6.10)
[2020-06-24] MEDS: Mometasone 200 MCG/Formoterol 5 MCG 120 PUFF INHALER INH SCH ×2 (05:34→20:17)
[2020-06-24] MEDS: Acetaminophen/Codeine 30-300mg Tablet PO SCH ×4 (05:58→23:40)
[2020-06-24] MEDS: Cholecalciferol (Vitamin D3) 400 UNITS TAB PO SCH (08:55)
[2020-06-24] MEDS: Ascorbic Acid 500 mg Chewable Tablet PO SCH (08:55)
[2020-06-24] MEDS: Carvedilol 6.25 MG TAB PO SCH ×3 (08:55→20:21)
[2020-06-24] MEDS: Clopidogrel Bisulfate 75 MG TAB PO SCH (08:56)
[2020-06-24] MEDS: Ivermectin 3 MG TAB PO SCH (08:56)
[2020-06-24] MEDS: Ferrous Sulfate 325 MG TAB PO SCH (08:56)
[2020-06-24] MEDS: Oxybutynin ER 5 MG TAB PO SCH ×2 (08:56→20:18)
[2020-06-24] MEDS: Furosemide 20 MG TAB PO SCH (08:56)
[2020-06-24] MEDS: hydrALAZINE 25 MG TAB PO SCH ×3 (08:56→20:18)
[2020-06-24] MEDS: Folic Acid 1 MG TAB PO SCH (08:56)
[2020-06-24] MEDS: Vit A,C & E/Lutein/Minerals Tablet PO SCH ×2 (08:57→20:18)
[2020-06-24] MEDS: Potassium Chloride 20 MEQ TAB PO SCH (08:57)
[2020-06-24] MEDS: Zinc Sulfate 220 MG CAP PO SCH (08:57)
[2020-06-24] MEDS: Polyethylene Glycol 3350 17 GM Packet PO SCH (08:57)
[2020-06-24] MEDS: Fluticasone Propionate Nasal Spray 16 gm Bottle NASAL SCH (09:55)
[2020-06-24] MEDS: Enoxaparin Sodium 40 MG/0.4 ML SYRINGE SC SCH (09:55)
[2020-06-24] MEDS: Ipratropium Bromide 0.06% Nasal Inhaler 15ml EA NARE SCH ×2 (09:56→20:19)
[2020-06-24] MEDS: HumaLOG 300 UNITS/3 ML VIAL SC PRN (16:49)
[2020-06-24] MEDS: Dexamethasone 4 mg/ml Vial SLOW IVP SCH (20:16)
[2020-06-24] MEDS: Lorazepam 1 MG TAB PO SCH (20:18)
[2020-06-24] MEDS: Montelukast Sodium 10 mg Tablet PO SCH (20:18)
[2020-06-24] MEDS: Atorvastatin Calcium 40 MG TAB PO SCH (20:18)
[2020-06-24] MEDS: Donepezil HCl 10 MG TAB PO SCH (20:18)
[2020-06-24] MEDS: Amlodipine 10 MG TAB PO SCH (20:18)
[2020-06-25] MEDS: Albuterol 200 PUFF (6.7GM INHALER) INH SCH ×5 (01:56→18:32)
[2020-06-25 04:21] LABS: Hemoglobin 9.2 g/dL (14.0-18.0); Mean Corpuscular HGB CONC 31.1 g/dL (32.0-36.0); Mean Corpuscular Hemoglobin 29.4 pg (27.0-31.0); Mean Corpuscular Volume 94.6 fL (78.0-98.0); Mean Platelet Volume 9.1 fL (7.4-10.4); Platelet Count 238 thou/uL (130-400); RBC Distribution Width 14.7 % (11.5-14.5); Red Blood Cell (RBC) Count 3.13 mill/uL (4.70-6.10); White Blood Cell (WBC) Count 11.8 thou/uL (4.8-10.8)
[2020-06-25 04:38] LABS: Anion Gap 17 mmol/L (10-20); BUN (Urea Nitrogen) 27 mg/dL (8.4-25.7); Calc. Creatinine Clearance 63 mL/min (70-130); Calcium 7.9 mg/dL (7.8-10.44); Carbon Dioxide 20 mmol/L (23-31); Chloride 104 mmol/L (98-107); Glucose 229 mg/dL (83-110); Potassium 3.9 mmol/L (3.5-5.1); Sodium 137 mmol/L (136-145)
[2020-06-25 04:48] LABS: Lymphocytes 3 % (21-51); MDiff Complete? YES; Metamyelocyte 4 % (0-0); Monocytes 3 % (0-10); Neutrophil 90 % (42-75); Platelet Morphology Comment Appears Adequate
[2020-06-25] MEDS: Acetaminophen/Codeine 30-300mg Tablet PO SCH ×3 (05:37→16:12)
[2020-06-25] MEDS: Mometasone 200 MCG/Formoterol 5 MCG 120 PUFF INHALER INH SCH ×2 (05:38→18:33)
[2020-06-25] MEDS: HumaLOG 300 UNITS/3 ML VIAL SC PRN ×3 (06:37→16:45)
[2020-06-25] MEDS: hydrALAZINE 25 MG TAB PO SCH ×3 (10:32→20:18)
[2020-06-25] MEDS: Clopidogrel Bisulfate 75 MG TAB PO SCH (10:33)
[2020-06-25] MEDS: Carvedilol 6.25 MG TAB PO SCH ×2 (10:33→20:17)
[2020-06-25] MEDS: Vit A,C & E/Lutein/Minerals Tablet PO SCH ×2 (10:33→20:17)
[2020-06-25] MEDS: Folic Acid 1 MG TAB PO SCH (10:33)
[2020-06-25] MEDS: Cholecalciferol (Vitamin D3) 400 UNITS TAB PO SCH (10:33)
[2020-06-25] MEDS: Zinc Sulfate 220 MG CAP PO SCH (10:34)
[2020-06-25] MEDS: Ascorbic Acid 500 mg Chewable Tablet PO SCH (10:34)
[2020-06-25] MEDS: Furosemide 20 MG TAB PO SCH (10:34)
[2020-06-25] MEDS: Ferrous Sulfate 325 MG TAB PO SCH (10:35)
[2020-06-25] MEDS: Potassium Chloride 20 MEQ TAB PO SCH (10:35)
[2020-06-25] MEDS: Enoxaparin Sodium 40 MG/0.4 ML SYRINGE SC SCH (10:35)
[2020-06-25] MEDS: Polyethylene Glycol 3350 17 GM Packet PO SCH (10:38)
[2020-06-25] MEDS: Dexamethasone 4 mg/ml Vial SLOW IVP SCH ×2 (10:39→20:19)
[2020-06-25] MEDS: Meropenem 2 GM, Admixture Fee 1 EACH in Sodium Chloride 0.9% 100 ML IVPB SCH (10:39)
[2020-06-25] MEDS: Fluticasone Propionate Nasal Spray 16 gm Bottle NASAL SCH (10:40)
[2020-06-25] MEDS: Ipratropium Bromide 0.06% Nasal Inhaler 15ml EA NARE SCH ×2 (10:41→19:45)
[2020-06-25] MEDS: Oxybutynin ER 5 MG TAB PO SCH ×2 (10:41→20:15)
[2020-06-25] MEDS: Senokot S 8.6-50 MG TAB PO SCH (19:45)
[2020-06-25] MEDS: Ziprasidone 20 MG VIAL IM PRN (20:16)
[2020-06-25] MEDS: Montelukast Sodium 10 mg Tablet PO SCH (20:17)
[2020-06-25] MEDS: Atorvastatin Calcium 40 MG TAB PO SCH (20:17)
[2020-06-25] MEDS: Lorazepam 1 MG TAB PO SCH (20:18)
[2020-06-25] MEDS: Amlodipine 10 MG TAB PO SCH (20:18)
[2020-06-25] MEDS: Donepezil HCl 10 MG TAB PO SCH (20:19)
[2020-06-26] MEDS: Albuterol 200 PUFF (6.7GM INHALER) INH SCH ×7 (00:46→22:37)
[2020-06-26] MEDS: Mometasone 200 MCG/Formoterol 5 MCG 120 PUFF INHALER INH SCH ×2 (05:47→20:37)
[2020-06-26] MEDS: HumaLOG 300 UNITS/3 ML VIAL SC PRN ×2 (06:03→22:43)
[2020-06-26 06:19] LABS: #Lymphocytes 0.4 thou/uL (1.20-3.40); #Monocytes 0.5 thou/uL (0.11-0.59); #Neutrophils 8.1 thou/uL (1.40-6.50); %Eosinophils 0.5 % (0.0-10.0); %Lymphocytes 4.5 % (21.0-51.0); %Monocytes 5.9 % (0.0-10.0); %Neutrophils 89.1 % (42.0-75.0); Hemoglobin 9.5 g/dL (14.0-18.0); Mean Corpuscular HGB CONC 31.3 g/dL (32.0-36.0); Mean Corpuscular Hemoglobin 29.4 pg (27.0-31.0); Platelet Count 248 thou/uL (130-400); RBC Distribution Width 14.9 % (11.5-14.5); Red Blood Cell (RBC) Count 3.22 mill/uL (4.70-6.10); White Blood Cell (WBC) Count 9.1 thou/uL (4.8-10.8)
[2020-06-26 06:39] LABS: Anion Gap 13 mmol/L (10-20); BUN (Urea Nitrogen) 31 mg/dL (8.4-25.7); Calc. Creatinine Clearance 56 mL/min (70-130); Carbon Dioxide 25 mmol/L (23-31); Chloride 103 mmol/L (98-107); Glucose 277 mg/dL (83-110); Potassium 4.7 mmol/L (3.5-5.1); Sodium 136 mmol/L (136-145)
[2020-06-26] MEDS ORDERED: hydrALAZINE 20 MG/ML VIAL SLOW IVP PRN (08:56)
[2020-06-26] MEDS: Ipratropium Bromide 0.06% Nasal Inhaler 15ml EA NARE SCH ×2 (09:30→22:36)
[2020-06-26] MEDS: Carvedilol 6.25 MG TAB PO SCH ×2 (09:50→22:36)
[2020-06-26] MEDS: Clopidogrel Bisulfate 75 MG TAB PO SCH (09:50)
[2020-06-26] MEDS: Folic Acid 1 MG TAB PO SCH (09:50)
[2020-06-26] MEDS: Vit A,C & E/Lutein/Minerals Tablet PO SCH ×2 (09:50→22:34)
[2020-06-26] MEDS: Potassium Chloride 20 MEQ TAB PO SCH (09:50)
[2020-06-26] MEDS: hydrALAZINE 25 MG TAB PO SCH ×3 (09:50→22:35)
[2020-06-26] MEDS: Cholecalciferol (Vitamin D3) 400 UNITS TAB PO SCH (09:50)
[2020-06-26] MEDS: Furosemide 20 MG TAB PO SCH (09:50)
[2020-06-26] MEDS: Oxybutynin ER 5 MG TAB PO SCH ×2 (09:51→22:34)
[2020-06-26] MEDS: Dexamethasone 4 mg/ml Vial SLOW IVP SCH ×2 (09:51→22:34)
[2020-06-26] MEDS: Polyethylene Glycol 3350 17 GM Packet PO SCH (09:51)
[2020-06-26] MEDS: Ascorbic Acid 500 mg Chewable Tablet PO SCH (09:51)
[2020-06-26] MEDS: Ferrous Sulfate 325 MG TAB PO SCH (09:51)
[2020-06-26] MEDS: Senokot S 8.6-50 MG TAB PO SCH ×2 (09:51→22:37)
[2020-06-26] MEDS: Enoxaparin Sodium 40 MG/0.4 ML SYRINGE SC SCH (09:51)
[2020-06-26] MEDS: Zinc Sulfate 220 MG CAP PO SCH (09:51)
[2020-06-26] MEDS: Fluticasone Propionate Nasal Spray 16 gm Bottle NASAL SCH (09:52)
[2020-06-26] MEDS: cloNIDine 0.1mg/24 Hour PATCH TD SCH (09:52)
[2020-06-26 14:33] LABS: Lactic Acid 1.3 mmol/L (0.5-2.2)
[2020-06-26 20:59] LABS: Bilirubin Negative (Negative); Blood, Urine Negative (Negative); Calcium Oxalate Crystals 1+ HPF (None Seen); Clarity Clear (Clear); Glucose, Urine (Dipstick) Normal (Negative); Ketone, Urine Negative (Negative); Leukocyte 75 Leu/uL (Negative); Mucous/LPF Rare LPF (<2+); Nitrite Negative (Negative); Protein, Urine (Dipstick) 20 mg/dL (Neg-Trace); RBC/HPF 0-3 HPF (0-3); Renal Epithelial 0-3 HPF (None Seen); Specific Gravity, Urine 1.014 (1.002-1.036); Squamous Epithelial 0-3 HPF (0-3); Urobilinogen Normal mg/dL (Less than 2); pH, Urine 6.5 (5.0-9.0)
[2020-06-26 21:27] LABS: Bacteria/HPF Rare-Few HPF (None Seen)
[2020-06-26] MEDS: Amlodipine 10 MG TAB PO SCH (22:35)
[2020-06-26] MEDS: Donepezil HCl 10 MG TAB PO SCH (22:35)
[2020-06-26] MEDS: Atorvastatin Calcium 40 MG TAB PO SCH (22:35)
[2020-06-26] MEDS: Montelukast Sodium 10 mg Tablet PO SCH (22:36)
[2020-06-26] MEDS: Lorazepam 1 MG TAB PO SCH (22:37)
[2020-06-27] MEDS: Ziprasidone 20 MG VIAL IM PRN (01:09)
[2020-06-27] MEDS: Albuterol 200 PUFF (6.7GM INHALER) INH SCH ×5 (01:09→23:16)
[2020-06-27] MEDS ORDERED: Sterile Water 10 ML ONE (01:11)
[2020-06-27] MEDS ORDERED: Lorazepam 2 MG/ML VIAL SLOW IVP SCH (02:30)
[2020-06-27 05:19] LABS: Anion Gap 15 mmol/L (10-20); BUN (Urea Nitrogen) 35 mg/dL (8.4-25.7); Calc. Creatinine Clearance 54 mL/min (70-130); Carbon Dioxide 19 mmol/L (23-31); Chloride 100 mmol/L (98-107); Glucose 235 mg/dL (83-110); Potassium 4.3 mmol/L (3.5-5.1); Sodium 130 mmol/L (136-145)
[2020-06-27 05:32] LABS: Band 3 % (5-11); Hemoglobin 8.9 g/dL (14.0-18.0); Lymphocytes 9 % (21-51); MDiff Complete? YES; Mean Corpuscular HGB CONC 31.7 g/dL (32.0-36.0); Mean Corpuscular Hemoglobin 29.5 pg (27.0-31.0); Mean Corpuscular Volume 93.2 fL (78.0-98.0); Mean Platelet Volume 9.7 fL (7.4-10.4); Metamyelocyte 2 % (0-0); Monocytes 3 % (0-10); Neutrophil 82 % (42-75); Nucleated RBC 1 % (0); Platelet Count 223 thou/uL (130-400); Platelet Morphology Comment Appears Adequate; Reactive Lymphocytes 1 % (0-10); White Blood Cell (WBC) Count 10.6 thou/uL (4.8-10.8)
[2020-06-27] MEDS: HumaLOG 300 UNITS/3 ML VIAL SC PRN ×2 (06:07→23:38)
[2020-06-27] MEDS: Dexamethasone 4 mg/ml Vial SLOW IVP SCH ×2 (09:13→23:13)
[2020-06-27] MEDS: Carvedilol 6.25 MG TAB PO SCH ×2 (09:13→23:14)
[2020-06-27] MEDS: Cholecalciferol (Vitamin D3) 400 UNITS TAB PO SCH (09:13)
[2020-06-27] MEDS: hydrALAZINE 25 MG TAB PO SCH ×3 (09:14→23:15)
[2020-06-27] MEDS: Vit A,C & E/Lutein/Minerals Tablet PO SCH ×2 (09:14→23:14)
[2020-06-27] MEDS: Clopidogrel Bisulfate 75 MG TAB PO SCH (09:14)
[2020-06-27] MEDS: risperiDONE 1 MG TAB PO SCH ×2 (09:14→23:15)
[2020-06-27] MEDS: Folic Acid 1 MG TAB PO SCH (09:14)
[2020-06-27] MEDS: cloNIDine 0.2 MG TAB PO SCH ×2 (09:14→23:13)
[2020-06-27] MEDS: Ferrous Sulfate 325 MG TAB PO SCH (09:14)
[2020-06-27] MEDS: Zinc Sulfate 220 MG CAP PO SCH (09:15)
[2020-06-27] MEDS: Potassium Chloride 20 MEQ TAB PO SCH (09:15)
[2020-06-27] MEDS: Oxybutynin ER 5 MG TAB PO SCH ×2 (09:15→23:19)
[2020-06-27] MEDS: Enoxaparin Sodium 40 MG/0.4 ML SYRINGE SC SCH (09:15)
[2020-06-27] MEDS: Senokot S 8.6-50 MG TAB PO SCH ×2 (09:15→23:16)
[2020-06-27] MEDS: Ascorbic Acid 500 mg Chewable Tablet PO SCH (09:15)
[2020-06-27] MEDS: Fluticasone Propionate Nasal Spray 16 gm Bottle NASAL SCH (09:16)
[2020-06-27] MEDS: Polyethylene Glycol 3350 17 GM Packet PO SCH (09:16)
[2020-06-27] MEDS: Mometasone 200 MCG/Formoterol 5 MCG 120 PUFF INHALER INH SCH ×2 (12:21→20:39)
[2020-06-27] MEDS: Ipratropium Bromide 0.06% Nasal Inhaler 15ml EA NARE SCH ×2 (12:22→23:16)
[2020-06-27] MEDS: Atorvastatin Calcium 40 MG TAB PO SCH (23:14)
[2020-06-27] MEDS: Lorazepam 1 MG TAB PO SCH (23:14)
[2020-06-27] MEDS: Amlodipine 10 MG TAB PO SCH (23:15)
[2020-06-27] MEDS: Montelukast Sodium 10 mg Tablet PO SCH (23:15)
[2020-06-27] MEDS: Donepezil HCl 10 MG TAB PO SCH (23:15)
[2020-06-28] MEDS: Albuterol 200 PUFF (6.7GM INHALER) INH SCH ×6 (02:15→23:57)
[2020-06-28] MEDS ORDERED: Sterile Water 10 ML ONE (03:38)
[2020-06-28] MEDS: Ziprasidone 20 MG VIAL IM PRN (03:43)
[2020-06-28] MEDS: Mometasone 200 MCG/Formoterol 5 MCG 120 PUFF INHALER INH SCH ×2 (06:17→23:30)
[2020-06-28] MEDS: HumaLOG 300 UNITS/3 ML VIAL SC PRN ×3 (06:17→21:09)
[2020-06-28] MEDS: Ascorbic Acid 500 mg Chewable Tablet PO SCH (09:41)
[2020-06-28] MEDS: Enoxaparin Sodium 40 MG/0.4 ML SYRINGE SC SCH (09:41)
[2020-06-28] MEDS: Polyethylene Glycol 3350 17 GM Packet PO SCH (09:41)
[2020-06-28] MEDS: Oxybutynin ER 5 MG TAB PO SCH ×2 (09:41→21:03)
[2020-06-28] MEDS: Zinc Sulfate 220 MG CAP PO SCH (09:41)
[2020-06-28] MEDS: Senokot S 8.6-50 MG TAB PO SCH ×2 (09:42→21:03)
[2020-06-28] MEDS: Dexamethasone 4 mg/ml Vial SLOW IVP SCH ×2 (09:42→21:01)
[2020-06-28] MEDS: cloNIDine 0.2 MG TAB PO SCH ×2 (09:42→21:03)
[2020-06-28] MEDS: Potassium Chloride 20 MEQ TAB PO SCH (09:42)
[2020-06-28] MEDS: Vit A,C & E/Lutein/Minerals Tablet PO SCH ×2 (09:42→21:02)
[2020-06-28] MEDS: Cholecalciferol (Vitamin D3) 400 UNITS TAB PO SCH (09:42)
[2020-06-28] MEDS: Clopidogrel Bisulfate 75 MG TAB PO SCH (09:42)
[2020-06-28] MEDS: hydrALAZINE 25 MG TAB PO SCH ×3 (09:42→21:01)
[2020-06-28] MEDS: Folic Acid 1 MG TAB PO SCH (09:43)
[2020-06-28] MEDS: Fluticasone Propionate Nasal Spray 16 gm Bottle NASAL SCH (09:43)
[2020-06-28] MEDS: Carvedilol 6.25 MG TAB PO SCH (09:43)
[2020-06-28] MEDS: Furosemide 20 MG TAB PO SCH (09:43)
[2020-06-28] MEDS: Ipratropium Bromide 0.06% Nasal Inhaler 15ml EA NARE SCH ×2 (09:43→23:30)
[2020-06-28] MEDS: risperiDONE 1 MG TAB PO SCH ×2 (09:43→21:03)
[2020-06-28] MEDS: Ferrous Sulfate 325 MG TAB PO SCH (09:43)
[2020-06-28] MEDS: Atorvastatin Calcium 40 MG TAB PO SCH (21:02)
[2020-06-28] MEDS: Amlodipine 10 MG TAB PO SCH (21:02)
[2020-06-28] MEDS: Montelukast Sodium 10 mg Tablet PO SCH (21:03)
[2020-06-28] MEDS: Carvedilol 25 MG TAB PO SCH (21:03)
[2020-06-28] MEDS: Donepezil HCl 10 MG TAB PO SCH (21:03)
[2020-06-28] MEDS: Lorazepam 1 MG TAB PO SCH (21:04)
[2020-06-29] MEDS ORDERED: Sterile Water 10 ML ONE (01:43)
[2020-06-29] MEDS: Ziprasidone 20 MG VIAL IM PRN (01:44)
[2020-06-29] MEDS: Albuterol 200 PUFF (6.7GM INHALER) INH SCH ×5 (05:11→22:18)
[2020-06-29] MEDS: HumaLOG 300 UNITS/3 ML VIAL SC PRN ×3 (06:46→16:58)
[2020-06-29] MEDS: Mometasone 200 MCG/Formoterol 5 MCG 120 PUFF INHALER INH SCH ×2 (07:10→22:18)
[2020-06-29] MEDS: Ascorbic Acid 500 mg Chewable Tablet PO SCH ×2 (08:31→10:31)
[2020-06-29] MEDS: Vit A,C & E/Lutein/Minerals Tablet PO SCH ×3 (08:32→20:23)
[2020-06-29] MEDS: Cholecalciferol (Vitamin D3) 400 UNITS TAB PO SCH ×2 (08:32→10:32)
[2020-06-29] MEDS: Ferrous Sulfate 325 MG TAB PO SCH ×2 (08:32→10:32)
[2020-06-29] MEDS: Zinc Sulfate 220 MG CAP PO SCH ×2 (08:32→10:35)
[2020-06-29] MEDS: Senokot S 8.6-50 MG TAB PO SCH ×3 (08:33→20:23)
[2020-06-29] MEDS: Enoxaparin Sodium 40 MG/0.4 ML SYRINGE SC SCH (08:33)
[2020-06-29] MEDS: Folic Acid 1 MG TAB PO SCH ×2 (08:33→10:33)
[2020-06-29] MEDS: Polyethylene Glycol 3350 17 GM Packet PO SCH ×2 (08:33→10:34)
[2020-06-29] MEDS: Potassium Chloride 20 MEQ TAB PO SCH ×2 (08:33→10:34)
[2020-06-29] MEDS: Clopidogrel Bisulfate 75 MG TAB PO SCH ×2 (08:33→10:32)
[2020-06-29] MEDS: risperiDONE 1 MG TAB PO SCH ×3 (08:34→20:24)
[2020-06-29] MEDS: Dexamethasone 4 mg/ml Vial SLOW IVP SCH ×2 (08:34→20:22)
[2020-06-29] MEDS: Carvedilol 25 MG TAB PO SCH ×3 (08:34→20:23)
[2020-06-29] MEDS: hydrALAZINE 25 MG TAB PO SCH ×4 (08:34→20:24)
[2020-06-29] MEDS: Furosemide 20 MG TAB PO SCH ×2 (08:34→10:33)
[2020-06-29] MEDS: Oxybutynin ER 5 MG TAB PO SCH ×3 (08:34→20:24)
[2020-06-29] MEDS: cloNIDine 0.2 MG TAB PO SCH ×3 (08:34→20:22)
[2020-06-29] MEDS: Fluticasone Propionate Nasal Spray 16 gm Bottle NASAL SCH (09:13)
[2020-06-29] MEDS: Ipratropium Bromide 0.06% Nasal Inhaler 15ml EA NARE SCH ×2 (09:13→21:00)
[2020-06-29] MEDS: Lorazepam 1 MG TAB PO SCH (20:22)
[2020-06-29] MEDS: Atorvastatin Calcium 40 MG TAB PO SCH (20:23)
[2020-06-29] MEDS: Donepezil HCl 10 MG TAB PO SCH (20:23)
[2020-06-29] MEDS: Montelukast Sodium 10 mg Tablet PO SCH (20:23)
[2020-06-29] MEDS: Amlodipine 10 MG TAB PO SCH (20:24)
[2020-06-30] MEDS: Albuterol 200 PUFF (6.7GM INHALER) INH SCH ×7 (00:53→20:57)
[2020-06-30] MEDS: HumaLOG 300 UNITS/3 ML VIAL SC PRN ×3 (06:17→17:14)
[2020-06-30] MEDS: Mometasone 200 MCG/Formoterol 5 MCG 120 PUFF INHALER INH SCH ×2 (08:16→18:47)
[2020-06-30] MEDS: Ferrous Sulfate 325 MG TAB PO SCH (09:38)
[2020-06-30] MEDS: Clopidogrel Bisulfate 75 MG TAB PO SCH (09:38)
[2020-06-30] MEDS: cloNIDine 0.2 MG TAB PO SCH (09:38)
[2020-06-30] MEDS: Cholecalciferol (Vitamin D3) 400 UNITS TAB PO SCH (09:38)
[2020-06-30] MEDS: Ascorbic Acid 500 mg Chewable Tablet PO SCH (09:38)
[2020-06-30] MEDS: risperiDONE 1 MG TAB PO SCH ×2 (09:38→20:56)
[2020-06-30] MEDS: Carvedilol 25 MG TAB PO SCH ×3 (09:39→22:06)
[2020-06-30] MEDS: Vit A,C & E/Lutein/Minerals Tablet PO SCH ×2 (09:39→20:55)
[2020-06-30] MEDS: Furosemide 20 MG TAB PO SCH (09:39)
[2020-06-30] MEDS: hydrALAZINE 25 MG TAB PO SCH ×3 (09:39→20:56)
[2020-06-30] MEDS: Folic Acid 1 MG TAB PO SCH (09:39)
[2020-06-30] MEDS: Potassium Chloride 20 MEQ TAB PO SCH (09:39)
[2020-06-30] MEDS: Zinc Sulfate 220 MG CAP PO SCH (09:39)
[2020-06-30] MEDS: Dexamethasone 4 mg/ml Vial SLOW IVP SCH (09:40)
[2020-06-30] MEDS: Oxybutynin ER 5 MG TAB PO SCH ×2 (09:40→20:55)
[2020-06-30] MEDS: Enoxaparin Sodium 40 MG/0.4 ML SYRINGE SC SCH (09:40)
[2020-06-30] MEDS: Polyethylene Glycol 3350 17 GM Packet PO SCH (09:41)
[2020-06-30] MEDS: Senokot S 8.6-50 MG TAB PO SCH ×3 (09:41→22:06)
[2020-06-30] MEDS: Fluticasone Propionate Nasal Spray 16 gm Bottle NASAL SCH (10:10)
[2020-06-30] MEDS: Ipratropium Bromide 0.06% Nasal Inhaler 15ml EA NARE SCH ×2 (10:11→20:56)
[2020-06-30] MEDS: Montelukast Sodium 10 mg Tablet PO SCH (20:55)
[2020-06-30] MEDS: Lorazepam 1 MG TAB PO SCH (20:55)
[2020-06-30] MEDS: Atorvastatin Calcium 40 MG TAB PO SCH (20:55)
[2020-06-30] MEDS: Amlodipine 10 MG TAB PO SCH (20:56)
[2020-06-30] MEDS: Dexamethasone 4 MG TAB PO SCH (20:56)
[2020-06-30] MEDS: Donepezil HCl 10 MG TAB PO SCH (20:56)
[2020-07-01] MEDS: Albuterol 200 PUFF (6.7GM INHALER) INH SCH ×6 (02:54→20:27)
[2020-07-01] MEDS: HumaLOG 300 UNITS/3 ML VIAL SC PRN ×4 (05:38→21:24)
[2020-07-01] MEDS: Mometasone 200 MCG/Formoterol 5 MCG 120 PUFF INHALER INH SCH ×2 (05:40→16:56)
[2020-07-01] MEDS: Senokot S 8.6-50 MG TAB PO SCH ×2 (08:39→20:28)
[2020-07-01] MEDS: Enoxaparin Sodium 40 MG/0.4 ML SYRINGE SC SCH (08:39)
[2020-07-01] MEDS: Carvedilol 25 MG TAB PO SCH ×2 (08:39→20:25)
[2020-07-01] MEDS: Ascorbic Acid 500 mg Chewable Tablet PO SCH (08:39)
[2020-07-01] MEDS: Cholecalciferol (Vitamin D3) 400 UNITS TAB PO SCH (08:39)
[2020-07-01] MEDS: Zinc Sulfate 220 MG CAP PO SCH (08:40)
[2020-07-01] MEDS: Dexamethasone 4 MG TAB PO SCH (08:40)
[2020-07-01] MEDS: Oxybutynin ER 5 MG TAB PO SCH ×2 (08:40→20:28)
[2020-07-01] MEDS: Potassium Chloride 20 MEQ TAB PO SCH (08:40)
[2020-07-01] MEDS: Ferrous Sulfate 325 MG TAB PO SCH (08:41)
[2020-07-01] MEDS: Folic Acid 1 MG TAB PO SCH (08:41)
[2020-07-01] MEDS: risperiDONE 1 MG TAB PO SCH ×3 (08:41→20:25)
[2020-07-01] MEDS: Vit A,C & E/Lutein/Minerals Tablet PO SCH ×2 (08:41→20:26)
[2020-07-01] MEDS: Furosemide 20 MG TAB PO SCH (08:41)
[2020-07-01] MEDS: hydrALAZINE 25 MG TAB PO SCH ×3 (08:41→20:26)
[2020-07-01] MEDS: Ipratropium Bromide 0.06% Nasal Inhaler 15ml EA NARE SCH ×2 (08:42→20:26)
[2020-07-01] MEDS: Clopidogrel Bisulfate 75 MG TAB PO SCH (08:42)
[2020-07-01] MEDS: Polyethylene Glycol 3350 17 GM Packet PO SCH ×2 (08:42→09:35)
[2020-07-01] MEDS: Fluticasone Propionate Nasal Spray 16 gm Bottle NASAL SCH (08:43)
[2020-07-01] MEDS: HYDROcodone/Acetaminophen 5/325 mg Tablet PO PRN (18:09)
[2020-07-01] MEDS: Montelukast Sodium 10 mg Tablet PO SCH (20:25)
[2020-07-01] MEDS: Donepezil HCl 10 MG TAB PO SCH (20:26)
[2020-07-01] MEDS: Lorazepam 1 MG TAB PO SCH (20:26)
[2020-07-01] MEDS: Amlodipine 10 MG TAB PO SCH (20:26)
[2020-07-01] MEDS: Atorvastatin Calcium 40 MG TAB PO SCH (20:26)
[2020-07-02] MEDS: Albuterol 200 PUFF (6.7GM INHALER) INH SCH ×4 (03:14→11:44)
[2020-07-02] MEDS: Mometasone 200 MCG/Formoterol 5 MCG 120 PUFF INHALER INH SCH ×2 (06:20→18:19)
[2020-07-02] MEDS: Ascorbic Acid 500 mg Chewable Tablet PO SCH (09:43)
[2020-07-02] MEDS: hydrALAZINE 25 MG TAB PO SCH ×3 (09:44→21:14)
[2020-07-02] MEDS: Zinc Sulfate 220 MG CAP PO SCH (09:44)
[2020-07-02] MEDS: Ferrous Sulfate 325 MG TAB PO SCH (09:44)
[2020-07-02] MEDS: Potassium Chloride 20 MEQ TAB PO SCH (09:45)
[2020-07-02] MEDS: Oxybutynin ER 5 MG TAB PO SCH ×2 (09:45→21:15)
[2020-07-02] MEDS: Carvedilol 25 MG TAB PO SCH ×2 (09:45→21:15)
[2020-07-02] MEDS: HYDROcodone/Acetaminophen 5/325 mg Tablet PO PRN ×2 (09:45→21:35)
[2020-07-02] MEDS: Cholecalciferol (Vitamin D3) 400 UNITS TAB PO SCH (09:45)
[2020-07-02] MEDS: Clopidogrel Bisulfate 75 MG TAB PO SCH (09:46)
[2020-07-02] MEDS: Folic Acid 1 MG TAB PO SCH (09:46)
[2020-07-02] MEDS: Vit A,C & E/Lutein/Minerals Tablet PO SCH ×2 (09:47→21:15)
[2020-07-02] MEDS: Dexamethasone 4 MG TAB PO SCH (09:47)
[2020-07-02] MEDS: Senokot S 8.6-50 MG TAB PO SCH ×2 (09:47→21:15)
[2020-07-02] MEDS: Fluticasone Propionate Nasal Spray 16 gm Bottle NASAL SCH (09:48)
[2020-07-02] MEDS: Polyethylene Glycol 3350 17 GM Packet PO SCH (09:48)
[2020-07-02] MEDS: Ipratropium Bromide 0.06% Nasal Inhaler 15ml EA NARE SCH (09:48)
[2020-07-02] MEDS: Enoxaparin Sodium 40 MG/0.4 ML SYRINGE SC SCH (09:48)
[2020-07-02] MEDS: risperiDONE 1 MG TAB PO SCH (10:49)
[2020-07-02] MEDS: Furosemide 20 MG TAB PO SCH (10:49)
[2020-07-02] MEDS: Acetylcysteine 20% 200 MG/ML 30 ML VIAL INH SCH ×3 (11:43→23:16)
[2020-07-02] MEDS: HumaLOG 300 UNITS/3 ML VIAL SC PRN ×3 (12:09→21:19)
[2020-07-02] MEDS ORDERED: risperiDONE 1 MG TAB PO SCH (21:00)
[2020-07-02] MEDS: Lorazepam 1 MG TAB PO SCH (21:14)
[2020-07-02] MEDS: Amlodipine 10 MG TAB PO SCH (21:14)
[2020-07-02] MEDS: Atorvastatin Calcium 40 MG TAB PO SCH (21:15)
[2020-07-02] MEDS: Donepezil HCl 10 MG TAB PO SCH (21:15)
[2020-07-02] MEDS: Montelukast Sodium 10 mg Tablet PO SCH (21:16)
[2020-07-03 04:27] LABS: #Lymphocytes 0.3 thou/uL (1.20-3.40); #Neutrophils 11.3 thou/uL (1.40-6.50); %Eosinophils 0.2 % (0.0-10.0); %Lymphocytes 2.4 % (21.0-51.0); %Monocytes 7.7 % (0.0-10.0); %Neutrophils 89.7 % (42.0-75.0); Hemoglobin 8.4 g/dL (14.0-18.0); Mean Corpuscular HGB CONC 31.9 g/dL (32.0-36.0); Mean Corpuscular Hemoglobin 29.7 pg (27.0-31.0); Mean Corpuscular Volume 93.2 fL (78.0-98.0); Mean Platelet Volume 10.1 fL (7.4-10.4); Platelet Count 167 thou/uL (130-400); RBC Distribution Width 16.3 % (11.5-14.5); Red Blood Cell (RBC) Count 2.81 mill/uL (4.70-6.10); White Blood Cell (WBC) Count 12.6 thou/uL (4.8-10.8)
[2020-07-03 04:48] LABS: ALT (SGPT) 13 U/L (8-55); AST (SGOT) 10 U/L (5-34); Albumin 2.5 g/dL (3.4-4.8); Alkaline Phosphatase 112 U/L (40-110); Anion Gap 13 mmol/L (10-20); BUN (Urea Nitrogen) 21 mg/dL (8.4-25.7); Bilirubin, Total 0.6 mg/dL (0.2-1.2); Calc. Creatinine Clearance 58 mL/min (70-130); Calcium 7.6 mg/dL (7.8-10.44); Carbon Dioxide 20 mmol/L (23-31); Chloride 101 mmol/L (98-107); Globulin 2.8 g/dL (2.4-3.5); Glucose 166 mg/dL (83-110); Potassium 4.1 mmol/L (3.5-5.1); Protein, Total 5.3 g/dL (5.8-8.1); Sodium 130 mmol/L (136-145)
[2020-07-03] MEDS: Ipratropium Bromide 0.06% Nasal Inhaler 15ml EA NARE SCH ×2 (05:49→09:54)
[2020-07-03] MEDS: HumaLOG 300 UNITS/3 ML VIAL SC PRN ×4 (06:07→21:02)
[2020-07-03] MEDS: Mometasone 200 MCG/Formoterol 5 MCG 120 PUFF INHALER INH SCH ×2 (06:37→17:11)
[2020-07-03] MEDS: Acetylcysteine 20% 200 MG/ML 30 ML VIAL INH SCH ×3 (06:41→18:43)
[2020-07-03] MEDS: Vit A,C & E/Lutein/Minerals Tablet PO SCH ×2 (09:51→19:58)
[2020-07-03] MEDS: Enoxaparin Sodium 40 MG/0.4 ML SYRINGE SC SCH (09:51)
[2020-07-03] MEDS: Cholecalciferol (Vitamin D3) 400 UNITS TAB PO SCH (09:51)
[2020-07-03] MEDS: Carvedilol 25 MG TAB PO SCH ×2 (09:52→19:58)
[2020-07-03] MEDS: Folic Acid 1 MG TAB PO SCH (09:52)
[2020-07-03] MEDS: Ascorbic Acid 500 mg Chewable Tablet PO SCH (09:52)
[2020-07-03] MEDS: Potassium Chloride 20 MEQ TAB PO SCH (09:52)
[2020-07-03] MEDS: hydrALAZINE 25 MG TAB PO SCH ×3 (09:53→19:56)
[2020-07-03] MEDS: Ferrous Sulfate 325 MG TAB PO SCH (09:53)
[2020-07-03] MEDS: Dexamethasone 4 MG TAB PO SCH (09:53)
[2020-07-03] MEDS: Clopidogrel Bisulfate 75 MG TAB PO SCH (09:53)
[2020-07-03] MEDS: Fluticasone Propionate Nasal Spray 16 gm Bottle NASAL SCH (09:54)
[2020-07-03] MEDS: Polyethylene Glycol 3350 17 GM Packet PO SCH (09:54)
[2020-07-03] MEDS: Senokot S 8.6-50 MG TAB PO SCH ×2 (09:54→19:59)
[2020-07-03] MEDS: Zinc Sulfate 220 MG CAP PO SCH (09:55)
[2020-07-03] MEDS: Oxybutynin ER 5 MG TAB PO SCH ×2 (09:57→19:57)
[2020-07-03] MEDS: HYDROcodone/Acetaminophen 5/325 mg Tablet PO PRN (11:02)
[2020-07-03] MEDS: guaiFENesin ER 600 MG TAB PO SCH (19:56)
[2020-07-03] MEDS: Amlodipine 10 MG TAB PO SCH (19:56)
[2020-07-03] MEDS: Montelukast Sodium 10 mg Tablet PO SCH (19:56)
[2020-07-03] MEDS: Atorvastatin Calcium 40 MG TAB PO SCH (19:57)
[2020-07-03] MEDS: Donepezil HCl 10 MG TAB PO SCH (19:58)
[2020-07-04] MEDS: Melatonin 3 MG TAB PO PRN ×2 (00:02→21:23)
[2020-07-04] MEDS: Acetylcysteine 20% 200 MG/ML 30 ML VIAL INH SCH ×4 (00:19→18:31)
[2020-07-04] MEDS: HYDROcodone/Acetaminophen 5/325 mg Tablet PO PRN ×3 (05:16→21:23)
[2020-07-04] MEDS: Ipratropium Bromide 0.06% Nasal Inhaler 15ml EA NARE SCH ×2 (06:09→08:39)
[2020-07-04 07:27] LABS: #Lymphocytes 0.4 thou/uL (1.20-3.40); #Neutrophils 9.4 thou/uL (1.40-6.50); %Basophils 0.1 % (0.0-1.0); %Eosinophils 0.1 % (0.0-10.0); %Lymphocytes 3.9 % (21.0-51.0); %Monocytes 9.1 % (0.0-10.0); %Neutrophils 86.8 % (42.0-75.0); Hemoglobin 8.3 g/dL (14.0-18.0); Mean Corpuscular HGB CONC 31.5 g/dL (32.0-36.0); Mean Corpuscular Hemoglobin 29.7 pg (27.0-31.0); Mean Corpuscular Volume 94.2 fL (78.0-98.0); Mean Platelet Volume 10.1 fL (7.4-10.4); Platelet Count 181 thou/uL (130-400); RBC Distribution Width 16.1 % (11.5-14.5); Red Blood Cell (RBC) Count 2.79 mill/uL (4.70-6.10); White Blood Cell (WBC) Count 10.8 thou/uL (4.8-10.8)
[2020-07-04] MEDS: Enoxaparin Sodium 40 MG/0.4 ML SYRINGE SC SCH (07:30)
[2020-07-04] MEDS: Zinc Sulfate 220 MG CAP PO SCH (07:31)
[2020-07-04] MEDS: Senokot S 8.6-50 MG TAB PO SCH ×2 (07:31→21:49)
[2020-07-04] MEDS: Cholecalciferol (Vitamin D3) 400 UNITS TAB PO SCH (07:31)
[2020-07-04] MEDS: Clopidogrel Bisulfate 75 MG TAB PO SCH (07:31)
[2020-07-04] MEDS: Ascorbic Acid 500 mg Chewable Tablet PO SCH (07:31)
[2020-07-04] MEDS: Dexamethasone 4 MG TAB PO SCH (07:31)
[2020-07-04] MEDS: Ferrous Sulfate 325 MG TAB PO SCH (07:32)
[2020-07-04] MEDS: hydrALAZINE 25 MG TAB PO SCH ×3 (07:32→21:23)
[2020-07-04] MEDS: Folic Acid 1 MG TAB PO SCH (07:32)
[2020-07-04] MEDS: Oxybutynin ER 5 MG TAB PO SCH ×2 (07:32→21:22)
[2020-07-04] MEDS: Vit A,C & E/Lutein/Minerals Tablet PO SCH ×2 (07:33→21:22)
[2020-07-04] MEDS: Carvedilol 25 MG TAB PO SCH ×2 (07:33→21:23)
[2020-07-04] MEDS: Potassium Chloride 20 MEQ TAB PO SCH (07:33)
[2020-07-04] MEDS: guaiFENesin ER 600 MG TAB PO SCH ×2 (07:33→21:23)
[2020-07-04] MEDS: Fluticasone Propionate Nasal Spray 16 gm Bottle NASAL SCH (07:33)
[2020-07-04] MEDS: Polyethylene Glycol 3350 17 GM Packet PO SCH (07:34)
[2020-07-04 07:59] LABS: ALT (SGPT) 10 U/L (8-55); AST (SGOT) 9 U/L (5-34); Albumin 2.6 g/dL (3.4-4.8); Alkaline Phosphatase 117 U/L (40-110); Anion Gap 11 mmol/L (10-20); Bilirubin, Total 0.6 mg/dL (0.2-1.2); Calc. Creatinine Clearance 59 mL/min (70-130); Calcium 7.5 mg/dL (7.8-10.44); Carbon Dioxide 22 mmol/L (23-31); Chloride 101 mmol/L (98-107); Globulin 2.4 g/dL (2.4-3.5); Glucose 140 mg/dL (83-110); Potassium 4.5 mmol/L (3.5-5.1); Sodium 129 mmol/L (136-145)
[2020-07-04 08:28] LABS: BUN (Urea Nitrogen) 20 mg/dL (8.4-25.7)
[2020-07-04] MEDS: Mometasone 200 MCG/Formoterol 5 MCG 120 PUFF INHALER INH SCH ×2 (08:35→17:34)
[2020-07-04] MEDS: Lidocaine 5% Patch TD SCH (12:21)
[2020-07-04] MEDS: traMADol HCl 50 MG TAB PO PRN (13:33)
[2020-07-04] MEDS: HumaLOG 300 UNITS/3 ML VIAL SC PRN (16:29)
[2020-07-04] MEDS: Donepezil HCl 10 MG TAB PO SCH (21:22)
[2020-07-04] MEDS: Atorvastatin Calcium 40 MG TAB PO SCH (21:22)
[2020-07-04] MEDS: Montelukast Sodium 10 mg Tablet PO SCH (21:23)
[2020-07-04] MEDS: Amlodipine 10 MG TAB PO SCH (21:23)
[2020-07-05] MEDS: Acetylcysteine 20% 200 MG/ML 30 ML VIAL INH SCH ×4 (00:02→19:03)
[2020-07-05] MEDS ORDERED: Transdermal Patch Removal TOP SCH (01:00)
[2020-07-05] MEDS: Ipratropium Bromide 0.06% Nasal Inhaler 15ml EA NARE SCH ×3 (02:49→21:24)
[2020-07-05 05:46] LABS: Band 37 % (5-11); Hemoglobin 9.4 g/dL (14.0-18.0); Hypochromia SLIGHT = 6-15 cells (100X) (0-5/hpf); Lymphocytes 3 % (21-51); MDiff Complete? YES; Mean Corpuscular HGB CONC 32.2 g/dL (32.0-36.0); Mean Corpuscular Hemoglobin 30.4 pg (27.0-31.0); Mean Corpuscular Volume 94.4 fL (78.0-98.0); Mean Platelet Volume 9.9 fL (7.4-10.4); Neutrophil 60 % (42-75); Platelet Count 191 thou/uL (130-400); Platelet Morphology Comment Appears Adequate; RBC Distribution Width 15.9 % (11.5-14.5); Red Blood Cell (RBC) Count 3.08 mill/uL (4.70-6.10); White Blood Cell (WBC) Count 11.8 thou/uL (4.8-10.8)
[2020-07-05 05:50] LABS: ALT (SGPT) 11 U/L (8-55); AST (SGOT) 7 U/L (5-34); Albumin 2.5 g/dL (3.4-4.8); Alkaline Phosphatase 103 U/L (40-110); Anion Gap 15 mmol/L (10-20); BUN (Urea Nitrogen) 25 mg/dL (8.4-25.7); Bilirubin, Total 0.7 mg/dL (0.2-1.2); Calc. Creatinine Clearance 47 mL/min (70-130); Carbon Dioxide 19 mmol/L (23-31); Chloride 100 mmol/L (98-107); Globulin 3.1 g/dL (2.4-3.5); Glucose 178 mg/dL (83-110); Protein, Total 5.6 g/dL (5.8-8.1); Sodium 129 mmol/L (136-145)
[2020-07-05] MEDS: Mometasone 200 MCG/Formoterol 5 MCG 120 PUFF INHALER INH SCH ×2 (07:28→19:03)
[2020-07-05] MEDS: Dexamethasone 4 MG TAB PO SCH (07:50)
[2020-07-05] MEDS: Enoxaparin Sodium 40 MG/0.4 ML SYRINGE SC SCH (07:50)
[2020-07-05] MEDS: traMADol HCl 50 MG TAB PO PRN (07:50)
[2020-07-05] MEDS: Oxybutynin ER 5 MG TAB PO SCH ×2 (07:51→21:15)
[2020-07-05] MEDS: Carvedilol 25 MG TAB PO SCH ×2 (07:51→22:53)
[2020-07-05] MEDS: guaiFENesin ER 600 MG TAB PO SCH ×2 (07:52→21:15)
[2020-07-05] MEDS: Potassium Chloride 20 MEQ TAB PO SCH (07:52)
[2020-07-05] MEDS: Senokot S 8.6-50 MG TAB PO SCH ×2 (07:52→21:14)
[2020-07-05] MEDS: Ferrous Sulfate 325 MG TAB PO SCH (07:52)
[2020-07-05] MEDS: hydrALAZINE 25 MG TAB PO SCH ×3 (07:52→22:54)
[2020-07-05] MEDS: Zinc Sulfate 220 MG CAP PO SCH (07:52)
[2020-07-05] MEDS: Clopidogrel Bisulfate 75 MG TAB PO SCH (07:52)
[2020-07-05] MEDS: Ascorbic Acid 500 mg Chewable Tablet PO SCH (07:52)
[2020-07-05] MEDS: Polyethylene Glycol 3350 17 GM Packet PO SCH (07:53)
[2020-07-05] MEDS: Vit A,C & E/Lutein/Minerals Tablet PO SCH ×2 (07:53→21:14)
[2020-07-05] MEDS: Cholecalciferol (Vitamin D3) 400 UNITS TAB PO SCH (07:53)
[2020-07-05] MEDS: cloNIDine 0.2 MG TAB PO SCH ×2 (07:53→22:53)
[2020-07-05] MEDS: Fluticasone Propionate Nasal Spray 16 gm Bottle NASAL SCH (07:54)
[2020-07-05] MEDS: Folic Acid 1 MG TAB PO SCH (07:54)
[2020-07-05] MEDS: Lidocaine 5% Patch TD SCH (11:32)
[2020-07-05] MEDS: HYDROcodone/Acetaminophen 5/325 mg Tablet PO PRN (11:32)
[2020-07-05] MEDS: HumaLOG 300 UNITS/3 ML VIAL SC PRN ×2 (15:01→22:29)
[2020-07-05] MEDS: Montelukast Sodium 10 mg Tablet PO SCH (21:14)
[2020-07-05] MEDS: Atorvastatin Calcium 40 MG TAB PO SCH (21:15)
[2020-07-05] MEDS: Donepezil HCl 10 MG TAB PO SCH (21:15)
[2020-07-05] MEDS ORDERED: Sodium Chloride 0.9% 1,000 ML IV SCH (21:15)
[2020-07-05] MEDS: Amlodipine 10 MG TAB PO SCH (22:53)
[2020-07-06] MEDS: Acetylcysteine 20% 200 MG/ML 30 ML VIAL INH SCH ×3 (01:30→12:23)
[2020-07-06] MEDS: Transdermal Patch Removal TOP SCH (01:58)
[2020-07-06] MEDS: HYDROcodone/Acetaminophen 5/325 mg Tablet PO PRN (02:01)
[2020-07-06 05:06] LABS: Hemoglobin 8.7 g/dL (14.0-18.0); Mean Corpuscular HGB CONC 30.3 g/dL (32.0-36.0); Mean Corpuscular Hemoglobin 28.8 pg (27.0-31.0); Mean Platelet Volume 9.7 fL (7.4-10.4); Platelet Count 151 thou/uL (130-400); RBC Distribution Width 15.9 % (11.5-14.5); Red Blood Cell (RBC) Count 3.03 mill/uL (4.70-6.10); White Blood Cell (WBC) Count 4.6 thou/uL (4.8-10.8)
[2020-07-06 05:08] LABS: Lactic Acid 1.3 mmol/L (0.5-2.2)
[2020-07-06 05:10] LABS: Band 6 % (5-11); Lymphocytes 3 % (21-51); MDiff Complete? YES; Metamyelocyte 8 % (0-0); Monocytes 1 % (0-10); Neutrophil 81 % (42-75); Platelet Morphology Comment Appears Adequate; Reactive Lymphocytes 1 % (0-10)
[2020-07-06 05:11] LABS: ALT (SGPT) 9 U/L (8-55); AST (SGOT) 8 U/L (5-34); Albumin 2.4 g/dL (3.4-4.8); Alkaline Phosphatase 100 U/L (40-110); Anion Gap 15 mmol/L (10-20); BUN (Urea Nitrogen) 39 mg/dL (8.4-25.7); Bilirubin, Total 0.7 mg/dL (0.2-1.2); Calc. Creatinine Clearance 38 mL/min (70-130); Calcium 7.7 mg/dL (7.8-10.44); Carbon Dioxide 21 mmol/L (23-31); Chloride 97 mmol/L (98-107); Globulin 3.2 g/dL (2.4-3.5); Glucose 158 mg/dL (83-110); Magnesium 2.1 mg/dL (1.6-2.6); Potassium 5.5 mmol/L (3.5-5.1); Protein, Total 5.6 g/dL (5.8-8.1); Sodium 127 mmol/L (136-145)
[2020-07-06 05:23] LABS: CRP (Inflammatory) 34.82 mg/dL (= or < 0.5)
[2020-07-06] MEDS: HumaLOG 300 UNITS/3 ML VIAL SC PRN (06:36)
[2020-07-06] MEDS: Mometasone 200 MCG/Formoterol 5 MCG 120 PUFF INHALER INH SCH (06:37)
[2020-07-06] MEDS: Zinc Sulfate 220 MG CAP PO SCH (09:17)
[2020-07-06] MEDS: hydrALAZINE 25 MG TAB PO SCH ×3 (09:17→21:41)
[2020-07-06] MEDS: Enoxaparin Sodium 40 MG/0.4 ML SYRINGE SC SCH (09:17)
[2020-07-06] MEDS: Dexamethasone 4 MG TAB PO SCH (09:18)
[2020-07-06] MEDS: guaiFENesin ER 600 MG TAB PO SCH ×2 (09:18→21:42)
[2020-07-06] MEDS: Ferrous Sulfate 325 MG TAB PO SCH (09:19)
[2020-07-06] MEDS: Vit A,C & E/Lutein/Minerals Tablet PO SCH ×2 (09:20→21:42)
[2020-07-06] MEDS: Folic Acid 1 MG TAB PO SCH (09:20)
[2020-07-06] MEDS: Potassium Chloride 20 MEQ TAB PO SCH (09:20)
[2020-07-06] MEDS: Ascorbic Acid 500 mg Chewable Tablet PO SCH (09:20)
[2020-07-06] MEDS: Clopidogrel Bisulfate 75 MG TAB PO SCH (09:21)
[2020-07-06] MEDS: cloNIDine 0.2 MG TAB PO SCH ×2 (09:21→21:41)
[2020-07-06] MEDS: Cholecalciferol (Vitamin D3) 400 UNITS TAB PO SCH (09:21)
[2020-07-06] MEDS: Fluticasone Propionate Nasal Spray 16 gm Bottle NASAL SCH (09:22)
[2020-07-06] MEDS: Ipratropium Bromide 0.06% Nasal Inhaler 15ml EA NARE SCH ×2 (09:23→21:43)
[2020-07-06] MEDS: Polyethylene Glycol 3350 17 GM Packet PO SCH (09:23)
[2020-07-06] MEDS: Senokot S 8.6-50 MG TAB PO SCH ×2 (09:24→21:40)
[2020-07-06] MEDS: Carvedilol 25 MG TAB PO SCH ×2 (09:25→21:41)
[2020-07-06] MEDS: Oxybutynin ER 5 MG TAB PO SCH ×2 (09:26→22:25)
[2020-07-06] MEDS: traMADol HCl 50 MG TAB PO PRN (09:27)
[2020-07-06] MEDS: Lidocaine 5% Patch TD SCH (12:17)
[2020-07-06 12:44] VITALS: BP 121/61
[2020-07-06 14:30] LABS: Actual Bicarbonate (HCO3a) 21.7 mEq/L (22-28); Base Excess (BEa) -4.6 mEq/L (-2.0 to +3.0); CO2 Tension 44.8 mmHg (35.0-45.0); Calcium, Ionized (arterial) 1.12 mmol/L (1.12-1.30); Carboxyhemoglobin (COHb) 0.9 gm% (0.0-3.0); Hemoglobin (Hb) 12.2 g/dL (14.0-18.0); Potassium - ABG Lab 6.57 mmol/L (3.70-5.30)
[2020-07-06 14:31] LABS: O2 Tension (PaO2), arterial 52.5 mmHg (> 70.0); Puncture Site RRA
[2020-07-06] MEDS ORDERED: Bumetanide 1 MG/4 ML VIAL IVP SCH (15:00)
[2020-07-06] MEDS ORDERED: Cefepime 1 GM in Sodium Chloride 0.9% 100 ML IVPB SCH (15:00)
[2020-07-06] MEDS: VANCOMYCIN 1.25 GM/250 ML BAG 1.25 GM in Premix Bag 1 BAG IVPB SCH (16:41)
[2020-07-06 17:09] LABS: Potassium, Urine 60.3 mmol/L; Sodium, Urine Less than 20 mmol/L (Not Available)
[2020-07-06] MEDS ORDERED: Furosemide 40 MG/4 ML VIAL SLOW IVP SCH (19:00)
[2020-07-06] MEDS ORDERED: Enoxaparin Sodium 40 MG/0.4 ML SYRINGE SC SCH (21:00)
[2020-07-06] MEDS: Atorvastatin Calcium 40 MG TAB PO SCH (21:41)
[2020-07-06] MEDS: Amlodipine 10 MG TAB PO SCH (21:41)
[2020-07-06] MEDS: Donepezil HCl 10 MG TAB PO SCH (21:42)
[2020-07-06] MEDS: MEROPENEM 1 GM/50 ML 1 GM in Premix Bag 1 BAG IVPB SCH (21:47)
[2020-07-07] MEDS: Transdermal Patch Removal TOP SCH (01:53)
[2020-07-07 04:02] LABS: ALT (SGPT) 15 U/L (8-55); AST (SGOT) 17 U/L (5-34); Albumin 2.3 g/dL (3.4-4.8); Alkaline Phosphatase 94 U/L (40-110); Anion Gap 19 mmol/L (10-20); BUN (Urea Nitrogen) 56 mg/dL (8.4-25.7); Bilirubin, Total 0.7 mg/dL (0.2-1.2); Calc. Creatinine Clearance 29 mL/min (70-130); Calcium 7.5 mg/dL (7.8-10.44); Carbon Dioxide 15 mmol/L (23-31); Chloride 98 mmol/L (98-107); Globulin 3.2 g/dL (2.4-3.5); Glucose 192 mg/dL (83-110); Protein, Total 5.5 g/dL (5.8-8.1); Sodium 125 mmol/L (136-145)
[2020-07-07 04:07] LABS: Hemoglobin 8.6 g/dL (14.0-18.0); Mean Corpuscular Hemoglobin 29.3 pg (27.0-31.0); Mean Corpuscular Volume 94.7 fL (78.0-98.0); Mean Platelet Volume 10.8 fL (7.4-10.4); Platelet Count 130 thou/uL (130-400); Potassium 6.6 mmol/L (3.5-5.1); RBC Distribution Width 15.8 % (11.5-14.5); Red Blood Cell (RBC) Count 2.94 mill/uL (4.70-6.10); White Blood Cell (WBC) Count 2.6 thou/uL (4.8-10.8)
[2020-07-07 04:08] LABS: Band 32 % (5-11); Hypochromia SLIGHT = 6-15 cells (100X) (0-5/hpf); Lymphocytes 10 % (21-51); MDiff Complete? YES; Metamyelocyte 2 % (0-0); Monocytes 32 % (0-10); Neutrophil 24 % (42-75); Platelet Morphology Comment Appears Adequate
[2020-07-07] MEDS ORDERED: Insulin Regular 300 UNITS/3 ML VIAL ONE (04:23)
[2020-07-07] MEDS ORDERED: Dextrose 50% Abboject 50 ML SYRINGE SLOW IVP SCH (04:30)
[2020-07-07] MEDS ORDERED: Insulin Regular 300 UNITS/3 ML VIAL IVP SCH (04:30)
[2020-07-07] MEDS ORDERED: Calcium Gluc 4.6 MEQ/10 ML (100 MG/ML) SLOW IVP SCH (04:30)
[2020-07-07] MEDS ORDERED: Albuterol Sulfate 2.5 mg/3 ml Neb NEB SCH ×2 (04:30→04:45)
[2020-07-07] MEDS ORDERED: Sodium Bicarb 50 MEQ/50 ML Abboject 8.4% SYRINGE IVP SCH (05:00)
[2020-07-07] MEDS: MEROPENEM 1 GM/50 ML 1 GM in Premix Bag 1 BAG IVPB SCH ×3 (05:47→21:51)
[2020-07-07] MEDS ORDERED: Furosemide 40 MG/4 ML VIAL SLOW IVP SCH (06:00)
[2020-07-07 07:24] LABS: Anion Gap 20 mmol/L (10-20); BUN (Urea Nitrogen) 58 mg/dL (8.4-25.7); Calc. Creatinine Clearance 28 mL/min (70-130); Calcium 7.7 mg/dL (7.8-10.44); Carbon Dioxide 14 mmol/L (23-31); Chloride 99 mmol/L (98-107); Glucose 159 mg/dL (83-110); Potassium 5.8 mmol/L (3.5-5.1); Sodium 127 mmol/L (136-145)
[2020-07-07] MEDS: Enoxaparin Sodium 40 MG/0.4 ML SYRINGE SC SCH (08:32)
[2020-07-07] MEDS: Clopidogrel Bisulfate 75 MG TAB PO SCH (08:32)
[2020-07-07] MEDS: Carvedilol 25 MG TAB PO SCH (08:32)
[2020-07-07] MEDS ORDERED: Bumetanide 1 MG/4 ML VIAL IVP SCH (09:00)
[2020-07-07] MEDS: Cholecalciferol (Vitamin D3) 400 UNITS TAB PO SCH (09:19)
[2020-07-07] MEDS: cloNIDine 0.2 MG TAB PO SCH (09:19)
[2020-07-07] MEDS: Ferrous Sulfate 325 MG TAB PO SCH (09:19)
[2020-07-07] MEDS: Fluticasone Propionate Nasal Spray 16 gm Bottle NASAL SCH (09:19)
[2020-07-07] MEDS: Ascorbic Acid 500 mg Chewable Tablet PO SCH (09:19)
[2020-07-07] MEDS: guaiFENesin ER 600 MG TAB PO SCH ×2 (09:49→21:52)
[2020-07-07] MEDS: Folic Acid 1 MG TAB PO SCH (09:49)
[2020-07-07] MEDS: hydrALAZINE 25 MG TAB PO SCH ×2 (09:49→16:28)
[2020-07-07] MEDS: Zinc Sulfate 220 MG CAP PO SCH (09:50)
[2020-07-07] MEDS: Senokot S 8.6-50 MG TAB PO SCH ×2 (09:50→21:53)
[2020-07-07] MEDS: Vit A,C & E/Lutein/Minerals Tablet PO SCH ×2 (09:50→21:54)
[2020-07-07] MEDS: Oxybutynin ER 5 MG TAB PO SCH ×2 (09:50→21:53)
[2020-07-07] MEDS ORDERED: Sodium Bicarbonate 50 MEQ in Sodium Chloride 0.45% 1,000 ML IV SCH (13:00)
[2020-07-07] MEDS: Lidocaine 5% Patch TD SCH (14:23)
[2020-07-07] MEDS ORDERED: Lactated Ringer's 500 ML IV SCH (15:30)
[2020-07-07] MEDS: Ipratropium Bromide 0.06% Nasal Inhaler 15ml EA NARE SCH ×2 (16:29→21:53)
[2020-07-07] MEDS: VANCOMYCIN 1.25 GM/250 ML BAG 1.25 GM in Premix Bag 1 BAG IVPB SCH (16:34)
[2020-07-07 17:20] LABS: Actual Bicarbonate (HCO3a) 18.7 mEq/L (22-28); Base Excess (BEa) -6.5 mEq/L (-2.0 to +3.0); Carboxyhemoglobin (COHb) 0.5 gm% (0.0-3.0); Hemoglobin (Hb) 8.2 g/dL (14.0-18.0); Potassium - ABG Lab 5.23 mmol/L (3.70-5.30); pH, Arterial 7.33 (7.35-7.45)
[2020-07-07 17:25] LABS: O2 Tension (PaO2), arterial 56.3 mmHg (> 70.0); Puncture Site RBA
[2020-07-07 17:35] LABS: Anion Gap 19 mmol/L (10-20); BUN (Urea Nitrogen) 64 mg/dL (8.4-25.7); Calc. Creatinine Clearance 24 mL/min (70-130); Calcium 7.3 mg/dL (7.8-10.44); Carbon Dioxide 19 mmol/L (23-31); Chloride 98 mmol/L (98-107); Glucose 194 mg/dL (83-110); Potassium 5.4 mmol/L (3.5-5.1); Sodium 131 mmol/L (136-145)
[2020-07-07] MEDS ORDERED: Sodium Bicarbonate Tab 325 MG TAB PO SCH (21:00)
[2020-07-07] MEDS: Donepezil HCl 10 MG TAB PO SCH (21:52)
[2020-07-07] MEDS: Atorvastatin Calcium 40 MG TAB PO SCH (21:52)
[2020-07-08] MEDS: Transdermal Patch Removal TOP SCH (01:22)
[2020-07-08 04:59] LABS: Hemoglobin 7.9 g/dL (14.0-18.0); Mean Corpuscular HGB CONC 31.5 g/dL (32.0-36.0); Mean Corpuscular Hemoglobin 29.8 pg (27.0-31.0); Mean Corpuscular Volume 94.5 fL (78.0-98.0); Mean Platelet Volume 11.1 fL (7.4-10.4); Platelet Count 93 thou/uL (130-400); Red Blood Cell (RBC) Count 2.64 mill/uL (4.70-6.10); White Blood Cell (WBC) Count 2.9 thou/uL (4.8-10.8)
[2020-07-08 05:07] LABS: ALT (SGPT) 17 U/L (8-55); AST (SGOT) 25 U/L (5-34); Albumin 2.1 g/dL (3.4-4.8); Alkaline Phosphatase 100 U/L (40-110); Anion Gap 20 mmol/L (10-20); BUN (Urea Nitrogen) 68 mg/dL (8.4-25.7); Bilirubin, Total 0.7 mg/dL (0.2-1.2); Calc. Creatinine Clearance 23 mL/min (70-130); Calcium 7.2 mg/dL (7.8-10.44); Carbon Dioxide 17 mmol/L (23-31); Chloride 98 mmol/L (98-107); Globulin 3.2 g/dL (2.4-3.5); Glucose 178 mg/dL (83-110); Potassium 5.3 mmol/L (3.5-5.1); Protein, Total 5.3 g/dL (5.8-8.1); Sodium 130 mmol/L (136-145)
[2020-07-08 05:11] LABS: Band 2 % (5-11); Lymphocytes 4 % (21-51); MDiff Complete? YES; Metamyelocyte 7 % (0-0); Monocytes 4 % (0-10); Neutrophil 83 % (42-75); Platelet Morphology Comment Appears Decreased
[2020-07-08] MEDS: MEROPENEM 1 GM/50 ML 1 GM in Premix Bag 1 BAG IVPB SCH ×3 (05:21→22:09)
[2020-07-08] MEDS: Ascorbic Acid 500 mg Chewable Tablet PO SCH (10:37)
[2020-07-08] MEDS: Ferrous Sulfate 325 MG TAB PO SCH (10:38)
[2020-07-08] MEDS: Enoxaparin Sodium 40 MG/0.4 ML SYRINGE SC SCH (10:38)
[2020-07-08] MEDS: Cholecalciferol (Vitamin D3) 400 UNITS TAB PO SCH (10:38)
[2020-07-08] MEDS: Fluticasone Propionate Nasal Spray 16 gm Bottle NASAL SCH (10:38)
[2020-07-08] MEDS: Clopidogrel Bisulfate 75 MG TAB PO SCH (10:38)
[2020-07-08] MEDS: Oxybutynin ER 5 MG TAB PO SCH ×2 (10:42→19:35)
[2020-07-08] MEDS: Ipratropium Bromide 0.06% Nasal Inhaler 15ml EA NARE SCH ×2 (10:42→19:35)
[2020-07-08] MEDS: Folic Acid 1 MG TAB PO SCH (10:42)
[2020-07-08] MEDS: guaiFENesin ER 600 MG TAB PO SCH ×2 (10:42→19:34)
[2020-07-08] MEDS: Zinc Sulfate 220 MG CAP PO SCH (10:43)
[2020-07-08] MEDS: Vit A,C & E/Lutein/Minerals Tablet PO SCH ×2 (10:43→19:35)
[2020-07-08] MEDS: Polyethylene Glycol 3350 17 GM Packet PO SCH (10:43)
[2020-07-08] MEDS: Senokot S 8.6-50 MG TAB PO SCH ×2 (10:43→19:35)
[2020-07-08 11:37] LABS: HBSAg Index 0.18 S/CO (0-0.99); Hep B Surf Ag Non-Reactive S/CO (NonReactive)
[2020-07-08] MEDS: Lidocaine 5% Patch TD SCH (12:04)
[2020-07-08 12:16] LABS: Vancomycin, Trough 24.5 ug/mL
[2020-07-08] MEDS ORDERED: Heparin 10,000 UNITS/ 10 ML VIAL ONE (12:29)
[2020-07-08] MEDS: Morphine 4 MG/ML VIAL SLOW IVP PRN ×2 (14:43→22:09)
[2020-07-08] MEDS ORDERED: Vancomycin 1 GM in Premix Bag 1 BAG IVPB SCH (16:00)
[2020-07-08] MEDS: Atorvastatin Calcium 40 MG TAB PO SCH (19:34)
[2020-07-08] MEDS: Donepezil HCl 10 MG TAB PO SCH (19:34)
[2020-07-09] MEDS: Transdermal Patch Removal TOP SCH ×2 (02:44→23:51)
[2020-07-09] MEDS: MEROPENEM 1 GM/50 ML 1 GM in Premix Bag 1 BAG IVPB SCH ×3 (05:08→22:10)
[2020-07-09 08:31] LABS: Hemoglobin 8.2 g/dL (14.0-18.0); Mean Corpuscular HGB CONC 30.9 g/dL (32.0-36.0); Mean Corpuscular Hemoglobin 29.3 pg (27.0-31.0); Mean Corpuscular Volume 94.7 fL (78.0-98.0); Mean Platelet Volume 11.6 fL (7.4-10.4); Platelet Count 72 thou/uL (130-400); RBC Distribution Width 15.9 % (11.5-14.5); Red Blood Cell (RBC) Count 2.79 mill/uL (4.70-6.10); White Blood Cell (WBC) Count 6.1 thou/uL (4.8-10.8)
[2020-07-09 08:57] LABS: Anisocytosis SLIGHT = 6-15 cells (100X) (0-5/hpf); Band 20 % (5-11); Hypochromia SLIGHT = 6-15 cells (100X) (0-5/hpf); Lymphocytes 2 % (21-51); MDiff Complete? YES; Monocytes 4 % (0-10); Neutrophil 74 % (42-75); Platelet Morphology Comment Appears Decreased; Poikilocytosis SLIGHT = 6-15 cells (100X) (0-5/hpf); Polychromasia SLIGHT = 2-3 cells (100X) (0-2/hpf); Schistocytes SLIGHT = 2-5 cells (100X) (0-1/hpf); Toxic Granulation SLIGHT
[2020-07-09] MEDS: Enoxaparin Sodium 40 MG/0.4 ML SYRINGE SC SCH (09:35)
[2020-07-09] MEDS: Cholecalciferol (Vitamin D3) 400 UNITS TAB PO SCH (09:35)
[2020-07-09] MEDS: Ascorbic Acid 500 mg Chewable Tablet PO SCH (09:35)
[2020-07-09] MEDS: Clopidogrel Bisulfate 75 MG TAB PO SCH (09:35)
[2020-07-09] MEDS: Fluticasone Propionate Nasal Spray 16 gm Bottle NASAL SCH (09:36)
[2020-07-09] MEDS: Ipratropium Bromide 0.06% Nasal Inhaler 15ml EA NARE SCH ×2 (09:36→19:23)
[2020-07-09] MEDS: Oxybutynin ER 5 MG TAB PO SCH ×2 (09:36→19:23)
[2020-07-09] MEDS: guaiFENesin ER 600 MG TAB PO SCH ×2 (09:36→19:23)
[2020-07-09] MEDS: Polyethylene Glycol 3350 17 GM Packet PO SCH (09:36)
[2020-07-09] MEDS: Folic Acid 1 MG TAB PO SCH (09:36)
[2020-07-09] MEDS: Ferrous Sulfate 325 MG TAB PO SCH (09:36)
[2020-07-09] MEDS: Senokot S 8.6-50 MG TAB PO SCH ×2 (09:37→19:24)
[2020-07-09] MEDS: Zinc Sulfate 220 MG CAP PO SCH (09:37)
[2020-07-09] MEDS: Vit A,C & E/Lutein/Minerals Tablet PO SCH ×2 (09:37→19:24)
[2020-07-09 09:50] LABS: Anion Gap 20 mmol/L (10-20); BUN (Urea Nitrogen) 60 mg/dL (8.4-25.7); Calc. Creatinine Clearance 27 mL/min (70-130); Calcium 7.3 mg/dL (7.8-10.44); Carbon Dioxide 20 mmol/L (23-31); Chloride 98 mmol/L (98-107); Glucose 156 mg/dL (83-110); Potassium 4.7 mmol/L (3.5-5.1); Sodium 133 mmol/L (136-145)
[2020-07-09] MEDS: Morphine 4 MG/ML VIAL SLOW IVP PRN ×3 (10:33→22:10)
[2020-07-09] MEDS ORDERED: Albumin 25% 100 ML ONE ×2 (11:27→11:29)
[2020-07-09 11:38] VITALS: BMI 26.2
[2020-07-09] MEDS ORDERED: Albumin 25% 25 GM/100 ML BOT IVPB PRN (12:14)
[2020-07-09] MEDS ORDERED: Heparin 10,000 UNITS/ 10 ML VIAL ONE (12:31)
[2020-07-09] MEDS: Lidocaine 5% Patch TD SCH (12:35)
[2020-07-09] MEDS ORDERED: Vancomycin HCl 1.25 GM in Sodium Chloride 0.9% 250 ML 250 ML IVPB SCH (14:30)
[2020-07-09] MEDS ORDERED: HOLD VANCOMYCIN FOR LEVEL >20 FS SCH (14:30)
[2020-07-09] MEDS ORDERED: Vancomycin HCl 750 MG in Sodium Chloride 0.9% 250 ML 250 ML IVPB SCH (14:30)
[2020-07-09] MEDS ORDERED: Vancomycin HCl 500 MG in Sodium Chloride 0.9% 100 ML IVPB SCH (14:30)
[2020-07-09] MEDS ORDERED: Vancomycin 1 GM in Premix Bag 1 BAG IVPB SCH (14:30)
[2020-07-09] MEDS: Atorvastatin Calcium 40 MG TAB PO SCH (19:23)
[2020-07-09] MEDS: Donepezil HCl 10 MG TAB PO SCH (19:23)
[2020-07-10] MEDS ORDERED: Lorazepam 2 MG/ML VIAL SLOW IVP PRN (01:00)
[2020-07-10] MEDS ORDERED: Lorazepam 2 MG/ML VIAL ONE (01:14)
[2020-07-10] MEDS: MEROPENEM 1 GM/50 ML 1 GM in Premix Bag 1 BAG IVPB SCH (05:55)
[2020-07-10 07:27] VITALS: TEMP 96.4
[2020-07-10] MEDS ORDERED: Enoxaparin Sodium 30 MG/0.3 ML SYRINGE SC SCH (09:00)
[2020-07-10] MEDS: Ascorbic Acid 500 mg Chewable Tablet PO SCH (10:31)
[2020-07-10] MEDS: Clopidogrel Bisulfate 75 MG TAB PO SCH (10:31)
[2020-07-10] MEDS: Cholecalciferol (Vitamin D3) 400 UNITS TAB PO SCH (10:31)
[2020-07-10] MEDS: Folic Acid 1 MG TAB PO SCH (10:32)
[2020-07-10] MEDS: Ferrous Sulfate 325 MG TAB PO SCH (10:32)
[2020-07-10] MEDS: Fluticasone Propionate Nasal Spray 16 gm Bottle NASAL SCH (10:32)
[2020-07-10] MEDS: guaiFENesin ER 600 MG TAB PO SCH (10:32)
[2020-07-10] MEDS: Oxybutynin ER 5 MG TAB PO SCH (10:33)
[2020-07-10] MEDS: Senokot S 8.6-50 MG TAB PO SCH (10:33)
[2020-07-10] MEDS: Polyethylene Glycol 3350 17 GM Packet PO SCH (10:33)
[2020-07-10] MEDS: Ipratropium Bromide 0.06% Nasal Inhaler 15ml EA NARE SCH (10:33)
[2020-07-10] MEDS: Vit A,C & E/Lutein/Minerals Tablet PO SCH (10:34)
[2020-07-10] MEDS: Zinc Sulfate 220 MG CAP PO SCH (10:34)
[2020-07-10] MEDS: Morphine 4 MG/ML VIAL SLOW IVP PRN (11:01)
[2020-07-10] MEDS ORDERED: Albumin 25% 25 GM/100 ML BOT IVPB PRN (12:33)
[2020-07-10] MEDS ORDERED: Lorazepam 2 MG/ML VIAL SLOW IVP SCH (14:00)
== END 2020-07-10 14:12 | disposition hospice, inpatient (51) | DRG 183 ==
LOC: ERS 13:07 → SURG A 17:04 → 2NO 20:24 → SJJU 06-15 11:09 → T4-B 06-15 19:01 → IMCU/EMU 06-19 00:56 → 2SW 06-30 17:42 → IMCU/EMU 07-06 15:57
PROVIDERS: ADMIT Surgery; ATTEND Internal Medicine
PROC: 5A0955A Assistance with Respiratory Ventilation, Greater than 96 Consecutive Hours, High Flow/Velocity Cannula (ICD-10-PCS; principal; 2020-06-18)
PROC: 5A09557 Assistance with Respiratory Ventilation, Greater than 96 Consecutive Hours, Continuous Positive Airway Pressure (ICD-10-PCS; 2020-07-06)
PROC: 06HY33Z Insertion of Infusion Device into Lower Vein, Percutaneous Approach (ICD-10-PCS; 2020-07-08)
PROC: 5A1D70Z Performance of Urinary Filtration, Intermittent, Less than 6 Hours Per Day (ICD-10-PCS; 2020-07-08)
DX: S22.41XA Multiple fractures of ribs, right side, initial encounter for closed fracture (principal); S32.434A Nondisplaced fracture of anterior column [iliopubic] of right acetabulum, initial encounter for closed fracture; U07.1 COVID-19; J12.82 Pneumonia due to coronavirus disease 2019; I50.33 Acute on chronic diastolic (congestive) heart failure; J69.0 Pneumonitis due to inhalation of food and vomit; J96.21 Acute and chronic respiratory failure with hypoxia; J96.22 Acute and chronic respiratory failure with hypercapnia; G92 Toxic encephalopathy; N17.0 Acute kidney failure with tubular necrosis; S32.591A Other specified fracture of right pubis, initial encounter for closed fracture; E87.1 Hypo-osmolality and hyponatremia; M87.851 Other osteonecrosis, right femur; I13.0 Hypertensive heart and chronic kidney disease with heart failure and stage 1 through stage 4 chronic kidney disease, or unspecified chronic kidney disease; F05 Delirium due to known physiological condition; N39.0 Urinary tract infection, site not specified; J98.11 Atelectasis; E87.2 Acidosis; Z66 Do not resuscitate; Z51.5 Encounter for palliative care; E78.00 Pure hypercholesterolemia, unspecified; D63.8 Anemia in other chronic diseases classified elsewhere; F03.90 Unspecified dementia, unspecified severity, without behavioral disturbance, psychotic disturbance, mood disturbance, and anxiety; H35.30 Unspecified macular degeneration; W01.0XXA Fall on same level from slipping, tripping and stumbling without subsequent striking against object, initial encounter; N18.9 Chronic kidney disease, unspecified; E11.22 Type 2 diabetes mellitus with diabetic chronic kidney disease; E11.51 Type 2 diabetes mellitus with diabetic peripheral angiopathy without gangrene; E78.5 Hyperlipidemia, unspecified; M85.861 Other specified disorders of bone density and structure, right lower leg; D63.1 Anemia in chronic kidney disease; B96.20 Unspecified Escherichia coli [E. coli] as the cause of diseases classified elsewhere; E87.5 Hyperkalemia; E83.42 Hypomagnesemia; E83.39 Other disorders of phosphorus metabolism; T38.0X5A Adverse effect of glucocorticoids and synthetic analogues, initial encounter; B37.9 Candidiasis, unspecified; Z78.1 Physical restraint status; Z90.79 Acquired absence of other genital organ(s); Z85.46 Personal history of malignant neoplasm of prostate; Z87.440 Personal history of urinary (tract) infections; Z79.899 Other long term (current) drug therapy; Z79.02 Long term (current) use of antithrombotics/antiplatelets; Z79.51 Long term (current) use of inhaled steroids; Z88.8 Allergy status to other drugs, medicaments and biological substances; Z91.14 Patient's other noncompliance with medication regimen; J43.9 Emphysema, unspecified; Y95 Nosocomial condition
CPT/HCPCS: 36415; 36416; 36600; 70450; 71045; 71250; 72125; 72170; 80048; 80053; 80202; 81001; 81003; 81015; 82140; 82436; 82570; 82607; 82728; 82746; 82805; 83605; 83615; 83735; 83880; 83935; 84100; 84133; 84145; 84300; 84484; 85025; 85379; 85610; 85652; 85730; 86140; 86850; 86900; 86901; 87040; 87077; 87086; 87186; 87340; 87635; 90935; 93005; 93010; 93306; 94660; 96374; G0257; J0132; J0360; J0692; J1100; J1450; J1644; J1650; J1815; J1940; J2001; J2060; J2185; J2270; J2405; J2543; J2930; J3010; J3370; J3486; J3490; J7050; J7611; J7620; J8540; P9047; Q0162; S0028; U0003; U0005

== ENCOUNTER 2020-07-10 14:21 | Inpatient (IN) | payer OTHER ==
[2020-07-10 14:44] VITALS: BMI 26.2
[2020-07-10 14:46] VITALS: BP 101/50
[2020-07-10] MEDS ORDERED: Haloperidol Lactate 5 MG/ML VIAL SLOW IVP PRN ×2 (14:57→15:09)
[2020-07-10] MEDS ORDERED: Ondansetron PF 4 MG/2 ML Vial IVP PRN (14:59)
[2020-07-10] MEDS ORDERED: Morphine 2 MG/ML VIAL SLOW IVP SCH (15:00)
[2020-07-10] MEDS ORDERED: Lorazepam 2 MG/ML VIAL SLOW IVP PRN ×2 (15:00→15:09)
[2020-07-10] MEDS ORDERED: Lorazepam 2 MG/ML VIAL SLOW IVP SCH (15:00)
[2020-07-10] MEDS ORDERED: Scopolamine 1.5 mg/72 hour Patch TOP PRN (15:00)
[2020-07-10] MEDS ORDERED: Artificial Tear Sol 15 ML BOT EA EYE PRN (15:04)
[2020-07-10] MEDS ORDERED: Atropine Sulfate 1% Ophth Soln 5 ml Bottle PO PRN (15:07)
[2020-07-10] MEDS ORDERED: Glycopyrrolate 0.2 MG/ML 5 ML SYRINGE SLOW IVP PRN (15:07)
[2020-07-10] MEDS ORDERED: BIOTENE MOUTH SPRAY 44.3 ML MM PRN (15:08)
[2020-07-10] MEDS ORDERED: Dexamethasone 4 mg/ml Vial SLOW IVP PRN (15:09)
[2020-07-10] MEDS ORDERED: Morphine 2 MG/ML VIAL SLOW IVP PRN ×2 (15:10→15:11)
[2020-07-10] MEDS ORDERED: Morphine 4 MG/ML VIAL SLOW IVP PRN (15:10)
[2020-07-10 19:57] VITALS: TEMP 98.8
== END 2020-07-10 21:21 | disposition expired | DRG 951 ==
LOC: IMCU/EMU 14:21 → ONC 20:48
PROVIDERS: ADMIT Internal Medicine Nephrology; ATTEND Internal Medicine Nephrology
DX: Z51.5 Encounter for palliative care (principal)
CPT/HCPCS: 94660; J2270